=== PATIENT | female | born 1940 | race Asian ===

== ENCOUNTER → 2018-01-09 09:15 | Outpatient (CLI) | payer OTHER, SELFPAY | PROVIDERS: PCP Family Medicine; Visit Provider Orthopaedic Surgery | DX: M65.342 Trigger finger, left ring finger (principal); Z96.642 Presence of left artificial hip joint; Z47.1 Aftercare following joint replacement surgery | CPT/HCPCS: 99213 ==

== ENCOUNTER → 2018-01-29 09:00 | Outpatient (CLI) | payer OTHER, SELFPAY | PROVIDERS: PCP Family Medicine; Visit Provider Orthopaedic Surgery | DX: Z47.89 Encounter for other orthopedic aftercare (principal); M65.342 Trigger finger, left ring finger; I10 Essential (primary) hypertension; E11.9 Type 2 diabetes mellitus without complications; Z79.4 Long term (current) use of insulin ==

== ENCOUNTER 2018-03-11 10:59 | Outpatient (REF) | payer OTHER, SELFPAY ==
--- NOTE | 2018-03-11 10:00 | SKI_PTH ---
PATIENT: Erika Moncada LOC: [facility] U#:[id number] AGE/SX: 77/F ROOM: RE03/11/[address]: Kei Dueñas : 1940 BED: DIS: 03/11/2018 SPEC #: [id number] RECD: 03/11/18 18:00 STATUS: NOBLE REIrais #: [id number] KAVON: 03/11/18 10:[address]: Kei Dueñas DEPT: Surgical Specimen RECD BY: Alice Jaramillo Tissues: 1 - SKIN BIOPSY(SHAVE/PUNCH) Procedures: SKIN LEVEL 4 Comments: [id number]
[2018-03-11 13:26] LABS: TSH (W/Ref FT4) 2.14 uIU/mL (0.358-3.74)
== END 2018-03-11 11:19 ==
LOC: NCHCN 10:59
PROVIDERS: PCP Family Medicine; Visit Provider Family Medicine
DX: E89.0 Postprocedural hypothyroidism (principal); L82.1 Other seborrheic keratosis
CPT/HCPCS: 84443; 88305

== ENCOUNTER 2018-05-09 09:18 | Outpatient (REF) | payer OTHER, SELFPAY ==
[2018-05-09 14:06] LABS: TSH (W/Ref FT4) 0.06 uIU/mL (0.358-3.74)
[2018-05-09 14:24] LABS: FREE T4 2.02 ng/dL (0.76-1.46)
== END 2018-05-09 09:38 ==
LOC: NCHCN 09:18
PROVIDERS: PCP Family Medicine; Visit Provider Family Medicine
DX: E89.0 Postprocedural hypothyroidism (principal)
CPT/HCPCS: 84439; 84443

== ENCOUNTER 2018-07-28 09:12 | Emergency (ER) | payer OTHER, SELFPAY ==
[2018-07-28 09:24] VITALS: BP 211/90; PULSE 82; RESP 18; TEMP 36.4; O2SAT 98
[2018-07-28 09:33] VITALS: BP 188/87
--- NOTE | 2018-07-28 09:35 | DI.RAD_ITS ---
SYMPTOMS/DIAGNOSIS: INJURY, PAIN RIGHT KNEE: Four views. No priors. No acute fracture or dislocation is seen. Within the femoral tibial joint space there is chondrocalcinosis. There is joint space narrowing and periarticular spurring involving all three joint compartments. There is an enthesophyte at the superior patella. There is soft tissue swelling anterior to the tibial tuberosity. There is a small suprapatellar joint effusion. IMPRESSION: 1. No acute fracture or dislocation. 2. Suprapatellar joint effusion.
--- NOTE | 2018-07-28 10:01 | W.ED.GENAD ---
Discharge Plan Disposition Patient Disposition: HOME Discharge Details Chief Complaint: Orthopedic Clinical Impression: Contusion of knee, Hematoma of right lower extremity, Elevated blood pressure reading, Heart murmur Primary Care Provider: Kei Dueñas ED Provider: Vinod Carlton Home Meds and New Rx's Prescriptions: Continued atorvastatin 10 MG tablet 20 mg PO DAILY RF: 0 metformin 1,000 MG tablet 1,000 mg PO BID RF: 0 losartan 25 MG tablet 100 mg PO DAILY RF: 0 aspirin [Aspirin Low-Strength] 81 MG tablet,chewable 81 mg PO DAILY Qty: 1 RF: 0 vitamin B complex [B-Complex] 1 EACH tablet 1 ea PO DAILY Qty: 1 RF: 0 niacin (inositol niacinate) 500 MG capsule 500 mg PO DAILY Qty: 1 RF: 0 amlodipine 2.5 MG tablet 5 mg PO DAILY RF: 0 Centrum Silver 1 EACH tablet 1 tab PO DAILY RF: 0 Ca-D3-mag vo-soib-bsl-estelita-bor [Calcium 600-D3 Plus] 1 EACH tablet 1 tab PO DAILY RF: 0 Levemir FlexTouch U-100 Insuln 100 UNIT/ML insulin pen 40 units SQ HS RF: 0 cholecalciferol (vitamin D3) [Vitamin D3] 2,000 UNIT capsule 2,000 unit PO DAILY RF: 0 levothyroxine 125 MCG tablet 0.75 mg PO DAILY RF: 0 Discharge Instructions Instructions: Contusion in Adults (ED), Heart Murmur (ED) Additional Instructions: Use Nacho wrap to provide compression to your injured knee. Use alternating ice and heat packs to encourage healing. A murmur was appreciated on exam today. Be sure to follow-up with your primary care physician regarding this and your elevated blood pressure today. Please contact your primary care physician to arrange follow-up. Return to the ER for any worsening or new concerning symptoms. Referrals: Kei Dueñas [Primary Care Provider] - Discharge Data Discharge Date/Time-TO BE ENTERED AT DEPARTURE: 07/28/18 11:07 Medical Decision Making 77yo f with here 1 week after slip and fall on ice with injury to anterior inferior right knee about 1 week ago, here with hematoma over tibial tuberosity, ecchymosis with likely pooling of bruising in her lower leg. No signs of infection. Considered fracture vs contusion with hematoma vs bursitis. Xray of the knee reviewed and interpreted by radiology: There is no evidence of acute fracture. There is no evidence of malalignment or dislocation. Mild suprapatellar joint effusion. Plan to treat with Nacho wrap and have her follow-up with her primary care physician. I encouraged her to return should have any worsening or new concerning symptoms. HPI General Mode of arrival: ambulatory. Date/Time Provider Initiated Documentation: 07/28/18 09:20. Limitations to Documentation: no limitations. Information obtained by: patient. HPI Narrative: 77yo female with history of hypertension, insulin-dependent diabetes, on low-dose aspirin presents 1 week after slip and fall on ice with injury to her right knee. Patient notes on 07/19/2018 she slipped and landed on her anterior right knee. Knee hurt minimally after the fall and she developed swelling anterior inferior knee. Swelling has persisted. Swelling is moderate with no modifiers. More recently, and more concerning for her, she is noticed bruising in her ankle. No numbness or weakness. No other injury Related Data Home Medications Medication Instructions Recorded Confirmed atorvastatin 20 mg PO DAILY tab-cap 05/27/13 07/28/18 losartan 100 mg PO DAILY tab-cap 05/27/13 07/28/18 metformin 1,000 mg PO BID tab-cap 05/27/13 07/28/18 aspirin [Aspirin Low-Strength] 81 mg PO DAILY #1 tab-cap 11/30/13 07/28/18 niacin (inositol niacinate) 500 mg PO DAILY #1 11/30/13 07/28/18 vitamin B complex [B-Complex] 1 ea PO DAILY #1 11/30/13 07/28/18 Ca-D3-mag jz-dvtt-abk-estelita-bor 1 tab PO DAILY 12/22/13 07/28/18 [Calcium 600-D3 Plus] Centrum Silver 1 tab PO DAILY 12/22/13 07/28/18 Levemir FlexTouch U-100 Insuln 40 units SQ HS 04/04/16 07/28/18 cholecalciferol (vitamin D3) 2,000 unit PO DAILY 04/04/16 07/28/18 [Vitamin D3] levothyroxine 0.75 mg PO DAILY 04/04/16 07/28/18 amlodipine 5 mg PO DAILY tab-cap 05/30/16 07/28/18 Allergies Allergy/AdvReac Type Severity Reaction Status Date / Time No Known Allergies Allergy Unverified 07/28/18 09:30 General Stated Complaint: Orthopedic JUSTIN: 4 Review of Systems Musculoskeletal Reports as per HPI Neurologic Reports as per HPI PFS Medical History Diabetes mellitus Essential hypertension Hyperlipidemia Hypothyroidism (acquired) Surgical History Appendectomy Colonoscopy - IV Sedation Colonoscopy - MAC Open Carpal Tunnel release Thyroid Total replacement of hip (~12/2013) Trigger Finger release Family History Sister Personal history of malignant neoplasm Social History Smoking and Tabacco status: Never Exam Const General: cooperative and no acute distress HENMT Head: normocephalic and atraumatic Mouth: moist mucous membranes Eyes Sclera: normal sclerae Resp Auscultation: clear to auscultation bilaterally, no rales, no rhonchi and no wheezes Cardio Jugular venous pressure: no JVD Rate: regular rate and not tachycardic Rhythm: regular rhythm Heart Sounds: murmur systolic II/ Skin General skin exam: ecchymosis (Anterior right lower leg and ankle) Neuro General: alert, awake, oriented x3 and tone normal Extrem General: no edema Right lower extremity: knee Details: tenderness Location: of the tibial tuberosity, swelling Location: of the proximal tibia Details: along the midline (hematoma), normal ROM and ecchymosis (anterior lower knee); no crepitus, lower leg (yellow discoloration anteriorly) and ankle Details: ecchymosis; no swelling Course Vital Signs Temperature 36.4 C L 07/28/18 09:24 Pulse 82 07/28/18 09:24 Respiratory Rate 18 07/28/18 09:24 Blood Pressure 211/90 H 07/28/18 09:24 Pulse Oximetry 98 07/28/18 09:24 Temperature 36.4 C L 07/28/18 09:24 Pulse 82 07/28/18 09:24 Respiratory Rate 18 07/28/18 09:24 Respiratory Effort 07/28/18 09:28 Blood Pressure 188/87 H 07/28/18 09:33 Pulse Oximetry 98 07/28/18 09:24 Pain Level 3 02/17/19 09:24
--- NOTE | 2018-07-28 10:09 | ED.GENADUL_ITS ---
Discharge Plan Disposition Patient Disposition: HOME Discharge Details Chief Complaint: Orthopedic Clinical Impression: Contusion of knee, Hematoma of right lower extremity, Elevated blood pressure reading, Heart murmur Primary Care Provider: Kei Dueñas ED Provider: Vinod Carlton Home Meds and New Rx's Prescriptions: Continued atorvastatin 10 MG tablet 20 mg PO DAILY RF: 0 metformin 1,000 MG tablet 1,000 mg PO BID RF: 0 losartan 25 MG tablet 100 mg PO DAILY RF: 0 aspirin [Aspirin Low-Strength] 81 MG tablet,chewable 81 mg PO DAILY Qty: 1 RF: 0 vitamin B complex [B-Complex] 1 EACH tablet 1 ea PO DAILY Qty: 1 RF: 0 niacin (inositol niacinate) 500 MG capsule 500 mg PO DAILY Qty: 1 RF: 0 amlodipine 2.5 MG tablet 5 mg PO DAILY RF: 0 Centrum Silver 1 EACH tablet 1 tab PO DAILY RF: 0 Ca-D3-mag pp-tkma-ugy-estelita-bor [Calcium 600-D3 Plus] 1 EACH tablet 1 tab PO DAILY RF: 0 Levemir FlexTouch U-100 Insuln 100 UNIT/ML insulin pen 40 units SQ HS RF: 0 cholecalciferol (vitamin D3) [Vitamin D3] 2,000 UNIT capsule 2,000 unit PO DAILY RF: 0 levothyroxine 125 MCG tablet 0.75 mg PO DAILY RF: 0 Discharge Instructions Instructions: Contusion in Adults (ED), Heart Murmur (ED) Additional Instructions: Use Nacho wrap to provide compression to your injured knee. Use alternating ice and heat packs to encourage healing. A murmur was appreciated on exam today. Be sure to follow-up with your primary care physician regarding this and your elevated blood pressure today. Please contact your primary care physician to arrange follow-up. Return to the ER for any worsening or new concerning symptoms. Referrals: Kei Dueñas [Primary Care Provider] - Discharge Data Discharge Date/Time-TO BE ENTERED AT DEPARTURE: 07/28/18 11:07 Medical Decision Making 77yo f with here 1 week after slip and fall on ice with injury to anterior inferior right knee about 1 week ago, here with hematoma over tibial tuberosity, ecchymosis with likely pooling of bruising in her lower leg. No signs of infection. Considered fracture vs contusion with hematoma vs bursitis. Xray of the knee reviewed and interpreted by radiology: There is no evidence of acute fracture. There is no evidence of malalignment or dislocation. Mild suprapatellar joint effusion. Plan to treat with Nacho wrap and have her follow-up with her primary care physician. I encouraged her to return should have any worsening or new concerning symptoms. HPI General Mode of arrival: ambulatory . Date/Time Provider Initiated Documentation: 07/28/18 09:20 . Limitations to Documentation: no limitations . Information obtained by: patient . HPI Narrative: 77yo female with history of hypertension, insulin-dependent diabetes, on low-dose aspirin presents 1 week after slip and fall on ice with injury to her right knee. Patient notes on 07/19/2018 she slipped and landed on her anterior right knee. Knee hurt minimally after the fall and she developed swelling anterior inferior knee. Swelling has persisted. Swelling is moderate with no modifiers. More recently, and more concerning for her, she is noticed bruising in her ankle. No numbness or weakness. No other injury Related Data Home Medications Medication Instructions Recorded Confirmed atorvastatin 20 mg PO DAILY tab-cap 05/27/13 07/28/18 losartan 100 mg PO DAILY tab-cap 05/27/13 07/28/18 metformin 1,000 mg PO BID tab-cap 05/27/13 07/28/18 aspirin [Aspirin Low-Strength] 81 mg PO DAILY #1 tab-cap 11/30/13 07/28/18 niacin (inositol niacinate) 500 mg PO DAILY #1 11/30/13 07/28/18 vitamin B complex [B-Complex] 1 ea PO DAILY #1 11/30/13 07/28/18 Ca-D3-mag ys-mccg-hhd-estelita-bor 1 tab PO DAILY 12/22/13 07/28/18 [Calcium 600-D3 Plus] Centrum Silver 1 tab PO DAILY 12/22/13 07/28/18 Levemir FlexTouch U-100 Insuln 40 units SQ HS 04/04/16 07/28/18 cholecalciferol (vitamin D3) 2,000 unit PO DAILY 04/04/16 07/28/18 [Vitamin D3] levothyroxine 0.75 mg PO DAILY 04/04/16 07/28/18 amlodipine 5 mg PO DAILY tab-cap 05/30/16 07/28/18 Allergies Allergy/AdvReac Type Severity Reaction Status Date / Time No Known Allergies Allergy Unverified 07/28/18 09:30 General Stated Complaint: Orthopedic JUSTIN: 4 Review of Systems Musculoskeletal Reports as per HPI Neurologic Reports as per HPI PFS Medical History Diabetes mellitus Essential hypertension Hyperlipidemia Hypothyroidism (acquired) Surgical History Appendectomy Colonoscopy - IV Sedation Colonoscopy - MAC Open Carpal Tunnel release Thyroid Total replacement of hip (~12/2013) Trigger Finger release Family History Sister Personal history of malignant neoplasm Social History Smoking and Tabacco status: Never Exam Const General: cooperative and no acute distress HENMT Head: normocephalic and atraumatic Mouth: moist mucous membranes Eyes Sclera: normal sclerae Resp Auscultation: clear to auscultation bilaterally, no rales, no rhonchi and no wheezes Cardio Jugular venous pressure: no JVD Rate: regular rate and not tachycardic Rhythm: regular rhythm Heart Sounds: murmur systolic II/ Skin General skin exam: ecchymosis (Anterior right lower leg and ankle) Neuro General: alert, awake, oriented x3 and tone normal Extrem General: no edema Right lower extremity: knee Details: tenderness Location: of the tibial tuberosity, swelling Location: of the proximal tibia Details: along the midline (hematoma), normal ROM and ecchymosis (anterior lower knee); no crepitus, lower leg (yellow discoloration anteriorly) and ankle Details: ecchymosis; no swelling Course Vital Signs Temperature 36.4 C L 07/28/18 09:24 Pulse 82 07/28/18 09:24 Respiratory Rate 18 07/28/18 09:24 Blood Pressure 211/90 H 07/28/18 09:24 Pulse Oximetry 98 07/28/18 09:24 Temperature 36.4 C L 07/28/18 09:24 Pulse 82 07/28/18 09:24 Respiratory Rate 18 07/28/18 09:24 Respiratory Effort 07/28/18 09:28 Blood Pressure 188/87 H 07/28/18 09:33 Pulse Oximetry 98 07/28/18 09:24 Pain Level 3 02/17/19 09:24
--- NOTE | 2018-07-28 10:29 | DI.VRAD_ITS ---
EXAM: XR Right Knee, 4 or more Views EXAM DATE/TIME: 07/28/2018 9:36 AM CLINICAL HISTORY: 77 years old, female; Signs and symptoms; Other: Injury, pain; Additional info: Fall onto knee cap on ice this morning. Pain and swelling lateral side of knee cap TECHNIQUE: XR Right knee 4 or more views. COMPARISON: No relevant prior studies available. FINDINGS: Bones/joints: Chondrocalcinosis in the medial and lateral compartments. Tricompartmental joint space narrowing and osteophyte formation consistent with degenerative changes. There is no evidence of acute fracture. There is no evidence of malalignment or dislocation.. Mild suprapatellar joint effusion Soft tissues: Normal. IMPRESSION: There is no evidence of acute fracture. There is no evidence of malalignment or dislocation. Mild suprapatellar joint effusion Dictated and Authenticated by: Dg Hudson MD. Ordering:TRU Brock MD
[2018-07-28 11:04] VITALS: BP 166/82; PULSE 98; RESP 18; O2SAT 95
== END 2018-07-28 11:07 | disposition home or self-care (01) ==
PROVIDERS: Emergency Provider Student in an Organized Health Care Education/Training Program; PCP Family Medicine
DX: S80.01XA Contusion of right knee, initial encounter (principal); S80.11XA Contusion of right lower leg, initial encounter; M25.461 Effusion, right knee; W00.0XXA Fall on same level due to ice and snow, initial encounter; R01.1 Cardiac murmur, unspecified; E11.9 Type 2 diabetes mellitus without complications; Z79.4 Long term (current) use of insulin; I10 Essential (primary) hypertension
CPT/HCPCS: 99283; 73564

== ENCOUNTER 2018-08-14 08:17 | Outpatient (REF) | payer OTHER, SELFPAY ==
[2018-08-14 12:24] LABS: HCT 42.8 % (36.0-46.0); Mean Corp. HGB Concentration 32.7 g/dL (32.0-36.0); Mean Corpuscular Hemoglobin 29.6 pg (27.0-33.0); Mean Corpuscular Volume 90.5 fL (80-95); Mean Platelet Volume 9.9 fL (8.0-11.0); Platelet Count 472 x1000/uL (130-400); RBC 4.73 m/cumm (4.00-5.20); White Blood Cell Count 5.11 k/cumm (4.4-10.8)
[2018-08-14 13:17] LABS: Anion Gap 8.8 mmol/L (3-11); BUN 24 mg/dL (7-18); CO2 31.2 mmol/L (21.0-32.0); CREATININE 1.02 mg/dL (0.55-1.02); Calcium 9.8 mg/dL (8.5-10.1); Chloride 102 mmol/L (98-107); Estimated GFR 52.83 (mL/min/1.73m2); Glucose 121 mg/dL (70-100); Magnesium 1.5 mg/dL (1.8-2.4); Potassium 4.4 mmol/L (3.5-5.1); Sodium 142 mmol/L (136-145); TSH (W/Ref FT4) 0.03 uIU/mL (0.358-3.74)
[2018-08-14 13:34] LABS: FREE T4 2.23 ng/dL (0.76-1.46)
== END 2018-08-14 08:37 ==
LOC: NCHCN 08:17
PROVIDERS: PCP Family Medicine; Visit Provider Family Medicine
DX: E89.0 Postprocedural hypothyroidism (principal); I10 Essential (primary) hypertension; N18.3 Chronic kidney disease, stage 3 (moderate); E83.42 Hypomagnesemia; R01.1 Cardiac murmur, unspecified
CPT/HCPCS: 80048; 85027; 83735; 84439; 84443

== ENCOUNTER → 2018-10-01 09:16 | Outpatient (BNVA) | payer OTHER, SELFPAY | PROVIDERS: PCP Family Medicine; Referring Provider Family Medicine; Visit Provider Orthopaedic Surgery | DX: M65.321 Trigger finger, right index finger (principal) | CPT/HCPCS: 99211; 99212 ==

== ENCOUNTER 2018-10-07 07:47 | Day surgery (SDC) | payer OTHER, SELFPAY ==
[2018-10-07 08:24] VITALS: BP 136/71; PULSE 82; RESP 16; TEMP 36.2; O2SAT 97
[2018-10-07] MEDS: Lidocaine 2% Pres-Free 5 ML VIAL (10:44)
--- NOTE | 2018-10-07 11:01 | PDOC.DSDIS_ITS ---
Discharge Plan Disposition Patient Disposition: HOME Condition: Good Discharge Details Reason For Visit: Release trigger R index finger Attending Provider: Waldemar Rodriguez Primary Care Provider: Kei Dueñas [place] Meds and New Rx's Prescriptions: New hydrocodone-acetaminophen 5-325 mg tablet 1 tab PO Q6H PRN (Reason: pain) Qty: 7 RF: 0 Continued magnesium 250 mg tablet 500 mg PO DAILY RF: 0 atorvastatin 10 MG tablet 20 mg PO DAILY RF: 0 metformin 1,000 MG tablet 1,000 mg PO BID RF: 0 losartan 25 MG tablet 100 mg PO DAILY RF: 0 aspirin [Aspirin Low-Strength] 81 MG tablet,chewable 81 mg PO DAILY Qty: 1 RF: 0 vitamin B complex [B-Complex] 1 EACH tablet 1 ea PO DAILY Qty: 1 RF: 0 niacin (inositol niacinate) 500 MG capsule 500 mg PO DAILY Qty: 1 RF: 0 amlodipine 2.5 MG tablet 5 mg PO DAILY RF: 0 Centrum Silver 1 EACH tablet 1 tab PO DAILY RF: 0 Ca-D3-mag mj-uklt-hnv-estelita-bor [Calcium 600-D3 Plus] 1 EACH tablet 1 tab PO DAILY RF: 0 Levemir FlexTouch U-100 Insuln 100 UNIT/ML insulin pen 35 units SQ HS RF: 0 cholecalciferol (vitamin D3) [Vitamin D3] 2,000 UNIT capsule 2,000 unit PO DAILY RF: 0 levothyroxine 125 MCG tablet 0.75 mg PO DAILY RF: 0 Discharge Instructions Additional Instructions: Bend and straighten R index finger 10 times/hour when awake to decrease swelling and pain. Keep dressings dry and in place for 48 hours. May remove dressings, shower or bathe, and get incision wet after 48 hours. Leave incision uncovered when it is dry and sealed. Use R hand as much as your discomfort allows. Take hydrocodone only for pain not relieved by tylenol or ibuprofen. Follow up with in 10-14 days. Referrals: Waldemar Rodriguez MD [ [facility]YS[facility]IAN] - (f/u in 10-14 days.) Activity:: Activity as Tolerated Remove Dressings/Wound Care:: 48 hours Shower/Bathe:: 48 hours Diet:: As Tolerated Discharge Orders Discharge Orders: Discharge Order (Routine); Ordered 10/07/18 Ordered By: Waldemar N Jennifer DS: Diagnosis Discharge Diagnosis (1) Trigger finger, right index finger: Status: Acute
--- NOTE | 2018-10-07 13:59 | ROE_ITS ---
DATE OF PROCEDURE: October 07, 2018 PREOPERATIVE DIAGNOSIS: Trigger right index finger. POSTOPERATIVE DIAGNOSIS: Same. PROCEDURE: Tendon sheath incision for trigger right index finger. ANESTHESIA: Local infiltration 2% Xylocaine solution and 0.5% Marcaine with an epinephrine solution. SURGEON: Waldemar Rodriguez M.D. INDICATIONS: This is a 77-year-old white female well-known to me due to four previous trigger finger releases. She has developed painful locking and catching of her right index finger over six months ago. This has failed to improve over time. It significantly interferes with use of her right hand. Trigger finger release was recommended to alleviate her pain and improve the function of her right h and. The risks and complications of the procedure were explained to the patient in detail preoperati veldanita. PROCEDURE: The patient was taken to the Operating Room on 10/07/18. She was placed supine on the ope rating table. The right hand was prepped and draped free in the usual sterile fashion. I infiltrate d with 2% Xylocaine solution over the flexor sheath of the right index finger. I then make an approx imately 2.5 cm transverse incision over the proximal caroline of the flexor sheath of the right index f anna. The incision was carried down through the skin and subcu. Blunt-tipped Littler scissors were then used to mobilize the soft tissue away from the flexor sheath. Under direct vision I incised th e proximal caroline of the flexor sheath of the right index finger. Using Littler scissors I complete the proximal caroline release proximally and distally. At this point the patient is asked to actively flex and extend her right index finger. She is now able to flex and extend her right index finger fu lly with no locking or catching. The wound is irrigated with saline solution. The wound margins are infiltrated with 0.5% Marcaine with an epinephrine solution. The skin edges are approximated with t wo interrupted #4-0 Nylon sutures. The wound was dressed with Xeroform gauze, sterile gauze 4x4's, a nd wrapped with a 2-inch Cling bandage. The patient was discharged to the Day Surgery Unit in good c ondition. The patient was discharged home from the Day Surgery Unit with instructions to flex and extend her ri ght index finger ten times an hour while awake to prevent swelling and pain. She is to keep the dres sings clean, dry and in place for 48 hours. After 48 hours she can remove her dressings, shower or b athe and get her incision wet. She can leave the wound uncovered when it is dry and sealed. She can use her right hand as much as discomfort allows. She will take Tylenol or ibuprofen for mild pain. She was given a prescription for breakthrough pain of Hydrocodone with APAP 5/325 one tablet every s ix hours, as needed. She will follow-up with me in 10-14 days.
== END 2018-10-07 11:22 | disposition home or self-care (01) ==
PROVIDERS: PCP Family Medicine; Visit Provider Orthopaedic Surgery
PROC: (CPT 26055; principal; 2018-10-07 09:15)
DX: M65.321 Trigger finger, right index finger (principal)
CPT/HCPCS: 26055

== ENCOUNTER → 2018-10-17 10:21 | Outpatient (BNVA) | payer OTHER, SELFPAY | PROVIDERS: PCP Family Medicine; Referring Provider Family Medicine; Visit Provider Orthopaedic Surgery | DX: E11.9 Type 2 diabetes mellitus without complications (principal); I10 Essential (primary) hypertension; M65.321 Trigger finger, right index finger; Z47.89 Encounter for other orthopedic aftercare ==

== ENCOUNTER 2018-10-23 16:45 | Outpatient (REF) | payer OTHER, SELFPAY ==
--- NOTE | 2018-10-23 15:40 | PAPFT_PTH ---
PATIENT: Erika Moncada LOC: [facility] U#:[id number] AGE/SX: 77/F ROOM: RE10/23/[address]: Kayleigh Quigley : 1940 BED: DIS: 10/23/2018 SPEC #: [id number] RECD: 10/23/18 17:14 STATUS: NOBLE REQ #: [id number] KAVON: 10/23/18 15:[address]: Kayleigh Quigley DEPT: [facility] Cyt[facility] RECD BY: Alice Jaramillo ENTERED: 10/23/18 17:14 SP TYPE: PAPFT OTHR DR: Kei Dueñas Tissues: 1 - CX/ENDOCX FOR PAP SMEARS Procedures: PAP THIN PREP/UVM Screening HPV DNA PROBE Comments: [id number]
== END 2018-10-23 17:05 ==
LOC: LBN 16:45
PROVIDERS: PCP Family Medicine; Visit Provider Obstetrics & Gynecology Gynecology
DX: Z12.4 Encounter for screening for malignant neoplasm of cervix (principal); Z51.81 Encounter for therapeutic drug level monitoring
CPT/HCPCS: 88142; 87624

== ENCOUNTER 2018-11-11 00:29 | Outpatient (CLI) | payer OTHER, SELFPAY ==
--- NOTE | 2018-11-11 10:30 | DI.MAMMO_ITS ---
SYMPTOMS/DIAGNOSIS: SCREENING, Z12.31 MAMMOGRAM: Mammograms were interpreted according to the usual protocol including computer analysis with CAD system, tomosynthesis and C view imaging. The breasts are of moderate density with fairly symmetrical distribution of fibroglandular tissue. No dominant mass or clumped microcalcification is identified in either breast. Current examination is compared with previous examinations including August 2017 and there has been no gross interval change in appearance in comparison with the previous studies. CONCLUSION: No specific evidence of malignancy at this time. Routine screening examinations are suggested at yearly intervals in this age group according to the ACS/ACR guidelines. Category 1, breast density category B. MQSA ASSESSMENT OF FINDINGS: Negative. Category 1. Patient will receive a letter notifying them of these results. BI-RADS category B. There are scattered areas of fibroglandular density.
== END 2018-11-11 00:49 ==
PROVIDERS: PCP Family Medicine; Visit Provider Obstetrics & Gynecology Gynecology
DX: Z12.31 Encounter for screening mammogram for malignant neoplasm of breast (principal)
CPT/HCPCS: 77063; 77067

== ENCOUNTER 2018-11-26 10:32 | Outpatient (REF) | payer OTHER, SELFPAY ==
[2018-11-26 13:23] LABS: Magnesium 1.7 mg/dL (1.8-2.4); TSH (W/Ref FT4) 0.03 uIU/mL (0.358-3.74)
[2018-11-26 13:48] LABS: FREE T4 1.48 ng/dL (0.76-1.46)
== END 2018-11-26 10:52 ==
LOC: NCHCN 10:32
PROVIDERS: PCP Family Medicine; Visit Provider Family Medicine
DX: E83.42 Hypomagnesemia (principal); E89.0 Postprocedural hypothyroidism
CPT/HCPCS: 83735; 84439; 84443

== ENCOUNTER 2019-07-28 10:59 | Outpatient (REF) | payer OTHER, SELFPAY ==
[2019-07-28 12:28] LABS: Anion Gap 9.3 mmol/L (3-11); BUN 18 mg/dL (7-18); CO2 30.7 mmol/L (21.0-32.0); CREATININE 1.09 mg/dL (0.55-1.02); Calcium 9.7 mg/dL (8.5-10.1); Chloride 104 mmol/L (98-107); Glucose 108 mg/dL (74-106); Potassium 4.4 mmol/L (3.5-5.1); Sodium 144 mmol/L (136-145); TSH (W/Ref FT4) 18.21 uIU/mL (0.36-3.74)
[2019-07-28 12:54] LABS: FREE T4 1.24 ng/dL (0.76-1.46)
== END 2019-07-28 11:19 ==
LOC: NCHCN 10:59
PROVIDERS: PCP Family Medicine; Visit Provider Family Medicine
DX: I10 Essential (primary) hypertension (principal); E89.0 Postprocedural hypothyroidism
CPT/HCPCS: 80048; 84439; 84443

== ENCOUNTER 2019-12-02 21:43 | Outpatient (REF) | payer OTHER, SELFPAY ==
[2019-12-02 19:40] LABS: TSH (W/Ref FT4) 3.47 uIU/mL (0.36-3.74)
== END 2019-12-02 22:03 ==
LOC: NCHCN 21:43
PROVIDERS: PCP Family Medicine; Visit Provider Family Medicine
DX: E89.0 Postprocedural hypothyroidism (principal)
CPT/HCPCS: 84443

== ENCOUNTER 2020-09-06 07:53 | Emergency (ER) | payer OTHER, SELFPAY ==
[2020-09-06] VITALS (21 sets, daily range): BP systolic 104–166; BP diastolic 48–70; PULSE 82–108; RESP 11–20; TEMP 36.7; O2SAT 92–96
--- NOTE | 2020-09-06 08:30 | RT.EKG_ITS ---
APPROVED REPORT Exam: Resting ECG Patient Location: E HR:94 bpm ECG Measurements Heart Rate 94 AXIS RI 196 P 50 QRSd 84 QRS 9 QT 360 T 16 QTc 451 Conclusion Sinus rhythm...normal P axis, V-rate 60- 99 Inferior infarct, old...Q >35mS, II III aVF no STEMI, non-diagnostic EKG I have reviewed and interpreted ECG and agree with software generated interpretation.
--- NOTE | 2020-09-06 08:30 | DI.RAD_ITS ---
EXAM: XR CHEST 2V PA LATERAL CLINICAL HISTORY: left thorax pain. TECHNIQUE: 2D digital imaging was performed. COMPARISON: CR CHEST 2 VIEWS PA,LAT from 01/18/2017 FINDINGS: Heart size is normal. The mediastinum is not widened. Right lung is clear. There is platelike atelectasis in the lingular segment of the left lung, not pr eviously present. No pleural effusions. No pneumothorax. IMPRESSION: There is subsegmental platelike atelectasis in the left lung base lingular segment which was not evid ent on the 2017 study. No other pulmonary findings. No pleural effusions. Sigmoid DATA REPOSITORY: RADIATION DOSE DELIVERED:
--- NOTE | 2020-09-06 08:34 | W.ED.GENAD ---
Discharge Plan Disposition Patient Disposition: HOME Condition: Good Discharge Details Clinical Impression: Back pain, Pneumonia Primary Care Provider: Kei Dueñas ED Provider: Alice Norris Home Meds and New Rx's Prescriptions: New lidocaine [Lidoderm] 5 % adhesive patch,medicated 1 patch topical DAILY Qty: 15 RF: 0 doxycycline hyclate 100 mg tablet 100 mg PO BID Qty: 20 RF: 0 No Action magnesium 250 mg tablet 500 mg PO DAILY RF: 0 metformin 1,000 MG tablet 1,000 mg PO BID RF: 0 Levemir FlexTouch U-100 Insuln 100 UNIT/ML insulin pen 20 units SQ HS RF: 0 atorvastatin 20 mg tablet 20 mg PO DAILY RF: 0 levothyroxine 88 mcg tablet 88 mcg PO DAILY RF: 0 amlodipine 10 mg tablet 10 mg PO DAILY RF: 0 losartan 100 mg tablet 100 mg PO DAILY RF: 0 calcium carbonate [Calcium 600] 600 mg calcium (1,500 mg) Tablet 1,200 mg PO DAILY RF: 0 cyanocobalamin (vitamin B-12) [Vitamin B-12] 500 mcg Tablet 500 mcg PO DAILY RF: 0 coenzyme Q10 [CoQ-10] 100 mg Capsule 200 mg PO DAILY RF: 0 zinc 50 mg Capsule 50 mg PO DAILY RF: 0 cholecalciferol (vitamin D3) [Vitamin D3] 125 mcg (5,000 unit) Tablet 125 mcg PO DAILY RF: 0 niacin 500 mg Capsule 500 mg PO DAILY RF: 0 Discharge Instructions Instructions: Back Pain (ED), Pneumonia (ED) Additional Instructions: Yogurt daily while on antibiotic Take Tylenol, 650 mg to 1 g every 6 hours as needed for pain Light massage Lidoderm patch, 12 hours on, 12 hours off You may apply warm compresses Please follow-up with your primary care physician this week for reevaluation Repeat x-ray in 1 month at the discretion of your doctor Return earlier should you have worsening shortness of breath, fever, chills, or with any new or progressing symptoms Discharge Data Discharge Date/Time-TO BE ENTERED AT DEPARTURE: 09/06/20 11:25 Medical Decision Making Patient alert and oriented, pleasant in demeanor, reproducible neck pain however given comorbidities, recent flight and age, will order troponin, EKG, chest x-ray, D-dimer and Tylenol I have low suspicion for more ominous pathology however pending diagnostic results will determine disposition Should take 2 aspirin prior to arrival, 162 mg Strength and sensation perfect preserved distally, low suspicion for cervical radiculopathy Distal pulses intact, no abdominal bruit or pulsatile mass, no prior history of aneurysms, suspicion based on clinical exam findings Pneumonia on CT per Dr. Rangel, radiologist, no other acute findings Specifically no evidence of abdominal aortic dissection Patient feeling symptomatically improved after Tylenol, ambulatory with steady gait We will treat with doxycycline, repeat x-ray in 1 month Tylenol for pain Return precautions discussed the patient stressed understanding No evidence of diabetic ketoacidosis Blood sugar noted to be elevated at 317, patient made aware and she will check her blood sugar when she returns home Given low threshold to return her to any complaints Denies weakness, dizziness, nausea, vomiting, chest pain, shortness of breath Recheck in 24 to 48 hours recommended Oxygenation 96% on room air, pulse 82, blood pressure 116/50, ambulatory with steady gait Differential Diagnosis Differential Diagnosis: Aortic dissection, musculoskeletal neck pain, myocardial ischemia, radiculo Medical Records Medical records reviewed: Yes I reviewed the patient's medical records. HPI This 79-year-old female with history of insulin-dependent diabetes, hypertension, hyperlipidemia presents today with report of left upper back and neck pain. The pain started approximately 4 days prior to arrival. She denies known injury to the affected area or history of similar pain in the past. She states she had pain moderately with position change and movement of her neck. She denies any strength or sensation changes or radiation into her anterior chest region. She denies known history of coronary artery disease. She denies any associated abdominal pain. She denies associated headache. She denies any vision change. She has nausea or vomiting. She did have a recent flight at the end of July to [facility] related and asymptomatic since that time. Denies any calf pain or swelling or prior history of coaguopqathy. Denies any new medications or shortness of breath. No exogenous hormone therapy. Blood sugar this morning 117 per patient. General Date/Time Provider Initiated Documentation: 09/06/20 07:54. Related Data Home Medications Medication Instructions Recorded Confirmed metformin 1,000 mg PO BID tab-cap 05/27/13 09/06/20 Levemir FlexTouch U-100 Insuln 20 units SQ HS 04/04/16 09/06/20 magnesium 250 mg tablet 500 mg PO DAILY tab 10/01/18 09/06/20 amlodipine 10 mg PO DAILY 09/06/20 09/06/20 atorvastatin 20 mg PO DAILY 09/06/20 09/06/20 calcium carbonate [Calcium 600] 1,200 mg PO DAILY 09/06/20 09/06/20 cholecalciferol (vitamin D3) 125 mcg PO DAILY 09/06/20 09/06/20 [Vitamin D3] coenzyme Q10 [CoQ-10] 200 mg PO DAILY 09/06/20 09/06/20 cyanocobalamin (vitamin B-12) 500 mcg PO DAILY 09/06/20 09/06/20 [Vitamin B-12] doxycycline hyclate 100 mg PO BID #20 tab 09/06/20 levothyroxine 88 mcg PO DAILY 09/06/20 09/06/20 lidocaine [Lidoderm] 1 patch TOPICAL DAILY #15 ea 09/06/20 losartan 100 mg PO DAILY 09/06/20 09/06/20 niacin 500 mg PO DAILY 09/06/20 09/06/20 zinc 50 mg PO DAILY 09/06/20 09/06/20 Previous Rx's Medication Instructions Recorded doxycycline hyclate 100 mg PO BID #20 tab 09/06/20 lidocaine [Lidoderm] 1 patch TOPICAL DAILY #15 ea 09/06/20 Allergies Allergy/AdvReac Type Severity Reaction Status Date / Time No Known Allergies Allergy Unverified 10/23/18 15:17 General Stated Complaint: Nk/Back Pain JUSTIN: 3 Review of Systems Narrative: Review of systems obtained x7 aside from where indicated in HPI [facility] Medical History (Updated 09/06/20 @ 11:11 by GENET Perez) Diabetes mellitus takes Lantus. 2012 HgbA1c 6.8. 2015 HgbA1c 6.5. No end organ damage. Essential hypertension Hyperlipidemia Hypothyroidism (acquired) s/p thyroidectomy for ? thryoid CA. On thyroid replacement. Pt's Parathyroid Hormone 03/2016 = 9 (12-77) Surgical History (Updated 10/18/18 @ 13:50 by Evon Becker) Appendectomy 1994 Colonoscopy - IV Sedation 2011 Colonoscopy - MAC Open Carpal Tunnel release hammer [place]pal [place] Thyroid ? CA. No further Rx required. Nl Ca levels. Pt. reports thyroid was removed Total replacement of hip (~12/2013) L Total Hip Arthroplasty. Trigger Finger release trigger finger 2012 Family History Sister Personal history of malignant neoplasm ovarian CA. in 50's Social History (Updated 10/23/18 @ 19:06 by Kayleigh Quigley MD) Smoking/Tobacco Use Status: Never Smoking risk assessment performed?: Yes Alcohol Intake: current Alcohol Intake frequency: holidays/special occasions only Alcohol type: beer and wine Drug use: Never Household members: children and other Details: D. lives with son and son in law. 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 Female Reproductive History Menstrual Menopause type: natural History History 4 Para 3 Hx # Term Pregnancies 3 Multiple births Hx # Pregnancies Ectopic pregnancies AB induced Hx Number of Living Children 3 AB spontaneous Exam Const General: cooperative and no acute distress Eyes Pupils: PERRL Neck Other: Palpable tenderness along the left lateral paraspinal muscle region, no crepitus, decreased range of motion left lateral No meningismus Chest Chest: normal inspection of the chest Resp Effort & Inspection: normal respiratory effort Auscultation: clear to auscultation bilaterally Cardio Rate: tachycardic Rhythm: regular rhythm GI Other: No abdominal bruit or pulsatile mass, no CVA tenderness Skin General skin exam: no rashes or lesions noted Neuro General: patient alert and patient oriented x3 Other: Strength and sensation intact distally Extrem Other: Peripheral pulses intact to all 4 extremities Course Vital Signs Vital signs: Vital Signs Temperature 36.7 C 09/06/20 07:57 Pulse 108 H 09/06/20 07:57 Respiratory Rate 18 09/06/20 07:57 Blood Pressure 166/70 H 09/06/20 07:57 Pulse Oximetry 96 09/06/20 07:57 Temperature 36.7 C 09/06/20 07:57 Temperature Source Temporal Artery Scan 09/06/20 07:57 Pulse 108 H 09/06/20 07:57 Respiratory Rate 18 09/06/20 07:57 Respiratory Effort Non-Labored 09/06/20 08:03 Blood Pressure 166/70 H 09/06/20 07:57 Blood Pressure Position Sitting 09/06/20 07:57 Pulse Oximetry 96 09/06/20 07:57 Oxygen Delivery Method Room Air 09/06/20 07:57 Oxygen Flow Rate 0 09/06/20 07:57 Pain Level 7 09/06/20 08:16
[2020-09-06] MEDS: Acetaminophen 500 MG TAB 1000 MG PO (08:38)
[2020-09-06 08:58] LABS: Abs Immature Grans 0.04 10^3/uL (0.0-0.06); Absolute Basophil Count 0.04 10^3/uL (0.0-0.2); Absolute Eosinophil Count 0.03 10^3/uL (0.0-0.7); Absolute Lymphocyte Count 1.08 10^3/uL (1.2-3.4); Absolute Monocyte Count 0.57 10^3/uL (0.1-0.8); Absolute Neutrophil Count 7.49 10^3/uL (1.2-6.7); Basophils % 0.4; Eosinophils % 0.3; HCT 35.7 % (36.0-46.0); HGB 12.1 g/dL (11.2-15.7); Immature Grans % 0.4; Lymphocytes % 11.7; MCH 30.3 pg (27.0-33.0); MCHC 33.9 % (32.0-36.0); MCV 89.3 fL (80-95); MPV 9.2 fL (8.0-11.0); Monocytes % 6.2; Nucleated RBC 0 %; Platelet Count 369 10^3/uL (130-400); RDW 12.7 % (11.7-14.6); RDW-SD 41.8 fL; WBC 9.25 10^3/uL (4.4-10.8)
[2020-09-06 09:17] LABS: Anion Gap 11.5 mmol/L (3-11); BUN 17 mg/dL (7-18); CO2 27.5 mmol/L (21.0-32.0); CREATININE 1.1 mg/dL (0.55-1.02); Calcium 8.8 mg/dL (8.5-10.1); Chloride 98 mmol/L (98-107); Estimated GFR 48.16 (mL/min/1.73m2); Glucose 316 mg/dL (74-106); Sodium 137 mmol/L (136-145)
[2020-09-06 09:18] LABS: Troponin I < 0.05 ng/mL (<0.06)
[2020-09-06 09:28] LABS: D-Dimer 1018 ng/mlFEU (<500)
--- NOTE | 2020-09-06 09:30 | DI.CT_ITS ---
EXAM: CT CHEST PE CTA CLINICAL HISTORY: elevated ddimer with thorax pain post flight. TECHNIQUE: Imaging Protocol: CT angiography of the chest was performed using pulmonary embolus lynette col. Multi planar reconstructions were performed. CONTRAST MATERIAL: Intravenous: Omnipaque 350 Contrast volume: 100 cc COMPARISON: Chest x-ray earlier today was reviewed FINDINGS: CHEST: PULMONARY ARTERIES: There are no intraluminal filling defects to suggest acute pulmonary emboli. LUNGS: There is atelectasis and some mild infiltrate in the left lung base posterior basal segment le ft lower lobe. No associated pleural effusion.. No evidence of pulmonary infarction. MEDIASTINUM: There is no hilar nor mediastinal adenopathy. Visualized thyroid unremarkable. CARDIAC: Heart size upper normal. There is no pericardial effusion.Caliber of the thoracic aorta is within normal limits. There is no evidence of shift of the interventricular septum. PARTIALLY VISUALIZED UPPERMOST ABDOMEN: Hepatic steatosis noted. No adrenal masses. OSSEOUS: No significant osseous lesions.. IMPRESSION: 1. No evidence of acute pulmonary emboli. 2. Small area of infiltrate in the left lower lobe posterior basal segment. No pleural effusions. 3. No significant intrathoracic adenopathy. Report called by myself to ER provider. RADIATION DOSE DELIVERED: LINK-TO-SR Total DLP DATA REPOSITORY: All CT scans at this facility are submitted to the National Radiology Data Registry (NRDR) Dose Index Registry (DIR) with the [employer] (ACR). RADIATION OPTIMIZATION: All CT scans at this facility use at least one of these dose optimization te chniques: automated exposure control; mA and/or kV adjustment per patient size (includes targeted exa ms where dose is matched to clinical indication); or iterative reconstruction.
[2020-09-06] MEDS: Omnipaque 350 MG/ML 100 ML BTL IJ (10:31)
[2020-09-06] MEDS: Normal Saline - Diluent 50 ML VIAL IV (10:32)
[2020-09-06] MEDS: Normal Saline Flush 10 ML SYR IVP (10:33)
== END 2020-09-06 11:25 | disposition home or self-care (01) ==
PROVIDERS: Emergency Provider Physician Assistant; PCP Family Medicine
DX: J18.9 Pneumonia, unspecified organism (principal); M54.6 Pain in thoracic spine; M54.2 Cervicalgia
CPT/HCPCS: 71275; 80048; 80053; 83690; 93005; 99285; 71046; 83735; 84484; 85025; 85379; 93010; 99283; J3490

== ENCOUNTER 2020-09-15 21:29 | Outpatient (REF) | payer OTHER, SELFPAY ==
[2020-09-15 20:11] LABS: Magnesium 1.9 mg/dL (1.8-2.4); TSH (W/Ref FT4) 20.18 uIU/mL (0.36-3.74)
[2020-09-17 10:33] LABS: Hepatitis C Ab w Rflx HCV PCR Negative (Negative)
== END 2020-09-15 21:30 | disposition home or self-care (01) ==
LOC: NCHCN 21:29
PROVIDERS: PCP Family Medicine; Visit Provider Family Medicine
DX: E83.42 Hypomagnesemia (principal); E89.0 Postprocedural hypothyroidism; Z11.59 Encounter for screening for other viral diseases
CPT/HCPCS: 86803; 83735; 84439; 84443

== ENCOUNTER 2020-12-27 09:54 | Outpatient (REF) | payer OTHER, SELFPAY ==
[2020-12-27 16:39] LABS: TSH (W/Ref FT4) 0.35 uIU/mL (0.36-3.74)
[2020-12-27 16:56] LABS: FREE T4 1.24 ng/dL (0.76-1.46)
== END 2020-12-27 09:55 | disposition home or self-care (01) ==
LOC: NCHCN 09:54
PROVIDERS: PCP Family Medicine; Visit Provider Family Medicine
DX: E89.0 Postprocedural hypothyroidism (principal)
CPT/HCPCS: 84439; 84443

== ENCOUNTER 2021-08-09 18:48 | Outpatient (REF) | payer OTHER, SELFPAY ==
[2021-08-09 20:30] LABS: Iron 74 ug/dL (50-170); Total Iron Binding Capacity 334 ug/dL (250-450); Transferrin Sat 22 % (15-50)
[2021-08-09 20:41] LABS: HCT 42.5 % (36.0-46.0); HGB 13.6 g/dL (11.2-15.7); MCH 29.5 pg (27.0-33.0); MCV 92.2 fL (80-95); MPV 9.6 fL (8.0-11.0); Platelet Count 493 10^3/uL (130-400); RBC 4.61 10^6/uL (3.93-5.22); RDW 13.2 % (11.7-14.6); RDW-SD 44.5 fL; WBC 6.09 10^3/uL (4.4-10.8)
[2021-08-09 20:54] LABS: Anion Gap 11.4 mmol/L (3-11); BUN 21 mg/dL (7-18); CO2 26.6 mmol/L (21.0-32.0); Calcium 9.3 mg/dL (8.5-10.1); Chloride 102 mmol/L (98-107); Estimated GFR 53.62 (mL/min/1.73m2); Glucose 109 mg/dL (74-106); Potassium 4.5 mmol/L (3.5-5.1); Sodium 140 mmol/L (136-145); TSH 18.76 uIU/mL (0.36-3.74)
== END 2021-08-09 18:49 | disposition home or self-care (01) ==
LOC: NCHCN 18:48
PROVIDERS: PCP Family Medicine; Visit Provider Family Medicine
DX: D64.9 Anemia, unspecified (principal); E89.0 Postprocedural hypothyroidism; N18.30 Chronic kidney disease, stage 3 unspecified
CPT/HCPCS: 80048; 85027; 83540; 83550; 84443

== ENCOUNTER 2021-11-25 09:15 | Outpatient (REF) | payer MEDICARE, SELFPAY ==
[2021-11-25 20:02] LABS: Calculated LDL 72 mg/dL (<100); Cholesterol 170 mg/dL (<200); HDL Cholesterol 55 mg/dL (40-60); TSH (W/Ref FT4) 1.04 uIU/mL (0.36-3.74); Triglyceride 217 mg/dL (<150)
== END 2021-11-25 09:16 | disposition home or self-care (01) ==
LOC: NCHCN 09:15
PROVIDERS: PCP Family Medicine; Visit Provider Family Medicine
DX: E89.0 Postprocedural hypothyroidism (principal); E78.5 Hyperlipidemia, unspecified
CPT/HCPCS: 80061; 84443

== ENCOUNTER → 2022-01-24 07:48 | Outpatient (BNVA) | payer MEDICARE, SELFPAY | PROVIDERS: PCP Family Medicine; Referring Provider Family Medicine; Visit Provider Surgery | DX: Z86.010 Personal history of colon polyps (principal); Z12.11 Encounter for screening for malignant neoplasm of colon ==

== ENCOUNTER → 2022-01-30 14:51 | Outpatient (CLI) | payer MEDICARE, SELFPAY ==
--- NOTE | 2022-01-30 | DI.RAD_ITS ---
Exam(s) XR HAND LT COMPLETE XR WRIST LT COMPLETE EXAM: XR HAND LT COMPLETE and XR wrist LT complete CLINICAL HISTORY: PAIN IN LEFT WRIST--M25.532. TECHNIQUE: 2D digital imaging was performed of the left hand. Six views were obtained. AP, lateral and oblique views were obtained. COMPARISON: CR XR WRIST LT COMPLETE from 01/30/2022 FINDINGS: BONES: No acute fracture is present. No bony destructive lesion is seen. JOINTS: No dislocation present. At the 1st CMC joint there is mild joint space narrowing and periarti cular spurring present. There is mild narrowing of the interphalangeal joint spaces of the fingers. SOFT TISSUE: Soft tissue calcifications are seen associated with the PIP, MCP and TFCC. IMPRESSION: 1. Arthritis of the hand and wrist. 2. No acute fracture or dislocation. DATA REPOSITORY: RADIATION DOSE DELIVERED:
== END ==
PROVIDERS: PCP Family Medicine; Visit Provider Nurse Practitioner Family
DX: M19.032 Primary osteoarthritis, left wrist (principal); M19.042 Primary osteoarthritis, left hand
CPT/HCPCS: 73110; 73130

== ENCOUNTER 2022-02-06 06:27 | Day surgery (SDC) | payer MEDICARE, SELFPAY ==
--- NOTE | 2022-02-05 18:15 | W.ANESPRE ---
General Info Date of Service Date Performed: 02/06/22 Height: 5 ft 2 in Weight: 56.699 kg Body Mass Index (BMI): 22.8 Surgical Procedure: Operation Date: 02/06/22 08:35 Proposed Procedure Side Surgeon p Colonoscopy Christiana Villalobos MD Meds Allergies and Home Medications Allergies Allergy/AdvReac Type Severity Reaction Status Date / Time No Known Allergies Allergy Unverified 02/06/22 07:03 Home Medication Medication Instructions Recorded amlodipine 10 mg tablet 10 mg PO DAILY 09/06/20 atorvastatin 20 mg tablet 20 mg PO DAILY 09/06/20 calcium carbonate 600 mg calcium 1,200 mg PO DAILY 09/06/20 (1,500 mg) tablet (Calcium) cholecalciferol (vitamin D3) 125 125 mcg PO DAILY 09/06/20 mcg (5,000 unit) tablet (Vitamin D3) coenzyme Q10 100 mg capsule 200 mg PO DAILY 09/06/20 (CoQ-10) losartan 100 mg tablet 100 mg PO DAILY 09/06/20 zinc 50 mg capsule 50 mg PO DAILY 09/06/20 sitagliptin 100 mg tablet (Januvia) 100 mg PO DAILY 05/19/21 ascorbic acid (vitamin C) 1,000 mg 1 g PO DAILY 11/17/21 tablet insulin detemir U-100 100 unit/mL 20 units SQ HS 11/17/21 (3 mL) subcutaneous pen (Levemir FlexTouch U-100 Insulin) levothyroxine 88 mcg tablet 88 mcg PO DAILY 11/17/21 metformin 1,000 mg tablet 1,000 mg PO BID 11/17/21 vitamin B complex 1 tab PO DAILY 11/17/21 bisacodyl 5 mg tablet,delayed 5 mg PO ONCE #4 tabs 01/24/22 release (Dulcolax (bisacodyl)) polyethylene glycol 3350 17 17 g PO ONCE #238 grams 01/24/22 gram/dose oral powder Current Visit Medications: Current Medications Generic Name Dose Route Start Last Admin Trade Name Freq PRN Reason Stop Dose Admin Ringer's Solution 1,000 mls @ 80 mls/hr 02/06/22 06:00 IV 03/05/22 23:59 INFUSION [facility] IV Miscellaneous Supplies 1 each 02/06/22 06:00 Iv Access IV 03/05/22 23:59 DIRECTED [facility] Sodium Chloride 0 ml 02/06/22 06:00 Normal Saline Flush 10 Ml Syr IV 03/05/22 23:59 PRN PRN Sodium Chloride 0 ml 02/06/22 06:00 Normal Saline 10 Ml Vial IJ 03/05/22 23:59 DIRECTED PRN Sterile Water 0 ml 02/06/22 06:00 Water,Injection,Sterile 10 Ml Vial IJ 03/05/22 23:59 DIRECTED PRN PFSH Active Problems Active Problems: Problem Status Onset Code Vitamin D deficiency E55.9 Chronic kidney disease (CKD) stage G1/A3, glomerular filtration rate (GFR) equal to or greater than 90 mL/min/1.73 square meter and albuminuria creatinine ratio greater than 300 mg/g N18.1 Heart murmur, systolic R01.1 Screening for colon cancer Z12.11 Sleep apnea G47.30 Insulin dependent diabetes mellitus E11.9, Z79.4 Medical History Medical History Back pain Cyst of left parotid gland Dr. Gonzalez 05/27/20 The left parotid cyst seems to be significantly smaller, and was previously aspirated for thin clear liquid. Diabetes mellitus takes Lantus. 2012 HgbA1c 6.8. 2015 HgbA1c 6.5. No end organ damage. DJD (degenerative joint disease) Elevated lipids Essential hypertension Hyperlipidemia Hypertension Hypomagnesemia Hypothyroidism (acquired) s/p thyroidectomy for ? thryoid CA. On thyroid replacement. 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 Hammer toe procedure on her left foot. b. Appendectomy. c. Bilateral carpal tunnel releases, trigger releases, bilateral middle fingers. d. Colonoscopy. Open Carpal Tunnel release hammer toe [place] Thyroid ? CA. No further Rx required. Nl Ca levels. Pt. reports thyroid was removed Total replacement of hip (~12/2013) L Total Hip Arthroplasty. Trigger Finger release trigger finger 2012 Trigger finger, right index finger DOS: 10/07/18 Tobacco Smoking/Tobacco Use Status: Never Alcohol Alcohol Intake: current Alcohol intake frequency: holidays/special occasions only Alcohol type: beer and wine Substance Use Substance use: Never Substance use type: does not use Prental History History 4 Para 3 Hx # Term Pregnancies 3 Multiple births Hx # Pregnancies Ectopic pregnancies AB induced Hx Number of Living Children 3 AB spontaneous Vital Signs and Lab Results Vital Signs Most Recent Vital Signs in EMR: Temp Pulse Resp BP Pulse Ox 36.5 C 62 17 134/83 99 02/06/22 06:55 02/06/22 06:55 02/06/22 06:55 02/06/22 06:55 02/06/22 06:55 Lab Results Blood Type / Crossmatch: No Data to Display Complete Blood Count: No Data to Display Complete Metabolic Panel: No Data to Display Liver Function Panel: No Data to Display Coagulation Panel: No Data to Display Cardiac Panel: No Data to Display Arterial Blood Gas: No Data to Display Venous Blood Gas: No Data to Display Pancreas Panel: No Data to Display Thyroid Panel: No Data to Display Infectious Disease: No Data to Display Blood Cultures: No Data to Display Toxicology Panel: No Data to Display Imaging and Studies Imaging and Studies Study information below may be from another EMR and interpreted by another provider. Please see original notes in EMR for more complete details. EKG Summary: 08/2020: sinus. Qs II, III, aVF. Anesthesia Assessment and Plan Anesthesia History Personal History: No History of Anesthesia Complications Family History: No Family History of Anesthesia Complications Exercise Tolerance Exercise Tolerance: Metabolic Equivalents>4 Cardiac & Pulmonary Exam Cardiac Exam: Normal S1/S2 Heart Sounds Pulmonary Exam: Clear Bilateral Breath Sounds Implantable Cardiac Device Does patient have a Pacemaker or an ICD?: No Airway Exam Known Difficult Airway: No Mallampati Class: 3 Mouth Opening: Narrow (< 3cm) Thyromental Distance: Less than 3 cm Neck Range of Motion: Full ROM Neck Circumference: Normal Teeth Condition: Removable Dentures/Plates Upper and Removable Dentures/Plates Lower ASA Classification ASA Score: ASA 3 Emergency Case?: No NPO Status NPO Status: NPO Clears >2 hours, Solids >8 hours Anesthesia Plan Resuscitation Status: Full Code Anesthesia Technique: General Anesthesia Airway Planned: Natural Airway Monitors Used: Standard Monitors Preoperative Comments:: 81 yo female with history of polyps for colo. Sig PMHx: CKD, HTN, hypothyroid (r/t thyroidectomy for thyroid CA), DM, TRACY. Previous VL grade 1
--- NOTE | 2022-02-06 06:30 | W.COLOREPORT ---
Colonoscopy Report Date of procedure: 02/06/22 Pre-op diagnosis general: Colon Cancer Screening and hx of polyps Post-op diagnosis procedure note: other (polyps) Procedure: Colonoscopy with polypectomy Surgeon: Christiana Villalobos Anesthesia Type: General:No Airway Estimated blood loss (mL): 3 Pathology: other (transverse polyps x2, ddescending polyp and rectal polyp) Complications: None Disposition: same day Indications: Ms. Holcomb is a pleasant 81-year-old female who is here for a screening colonoscopy.? Her last colonoscopy was 10 years ago and she did have a tubulovillous adenoma.? She denies any changes in bowel habits, melena, hematochezia, unintentional weight loss or family history of colon cancer.? The prep was reviewed in detail as well as the procedure.? Risks, benefits and complications have been reviewed. Complications include but are not limited to bleeding, pain, perforation, missed small lesion/polyp, sore throat, aspiration and adverse reaction to the medications. Questions were entertained and answered to their satisfaction and they wished to proceed. No guarantees were given or implied. Proceed with colonoscopy under sedation Prep: Miralax/Dulcolax Procedure Start Time: 07:40 Procedure End Time: 08:04 Retraction Time: 12 minutes Findings: 4 polyps Procedure Description: After informed consent was obtained the patient was taken to the procedure room and placed in a left decubitous position. Monitors were applied and a time out was done. The patients name, date of , procedure, allergies to medications and metal in their body was reviewed. The patient was then sedated. Once sedated and comfortable a rectal exam was done. External exam was normal. Internal exam revealed a normal sphincter tone and no palpable masses. The scope was then introduced and retro-flexed. No internal hemorrhoids, polyps or masses were identified on retro-flexion. The scope was then advanced to the cecum without difficulty. The ileocecal vlave and appendiceal orifice were identified. The prep was adequate. The scope was then slowly retracted over 12 minutes back into the rectum. Polyps were removed with cold forceps in the Transverse colon x2, descending colon x1 and rectal polyp x1. There was no diverticulosis noted. The scope was removed and the patient was woken up and taken back to Same day surgery in stable condition. The patient tolerated the procedure well and there were no immediate complications.
--- NOTE | 2022-02-06 06:39 | PDOC.DSDIS_ITS ---
Discharge Plan Disposition Patient Disposition: HOME Condition: Good Discharge Details Reason For Visit: Colonoscopy Attending Provider: Christiana Villalobos Primary Care Provider: Kei Dueñas Home Meds and New Rx's Prescriptions: Continued vitamin B complex Tablet 1 tab PO DAILY ascorbic acid (vitamin C) 1,000 mg tablet 1 g PO DAILY Januvia 100 mg tablet 100 mg PO DAILY metformin 1,000 MG tablet 1,000 mg PO BID Levemir FlexTouch U-100 Insuln 100 UNIT/ML insulin pen 20 units SQ HS Label Comments: pt. states she takes anywhere between 9 am and 2 pm atorvastatin 20 mg tablet 20 mg PO DAILY amlodipine 10 mg tablet 10 mg PO DAILY losartan 100 mg tablet 100 mg PO DAILY calcium carbonate [Calcium 600] 600 mg calcium (1,500 mg) Tablet 1,200 mg PO DAILY coenzyme Q10 [CoQ-10] 100 mg Capsule 200 mg PO DAILY zinc 50 mg Capsule 50 mg PO DAILY cholecalciferol (vitamin D3) [Vitamin D3] 125 mcg (5,000 unit) Tablet 125 mcg PO DAILY levothyroxine 88 mcg tablet 88 mcg PO DAILY Discontinued bisacodyl [Dulcolax (bisacodyl)] 5 mg tablet,delayed release (DR/EC) 5 mg PO ONCE Qty: 4 0RF Rx Instructions: Take according to provider's instructions for colonoscopy prep. polyethylene glycol 3350 17 gram/dose powder 17 g PO ONCE Qty: 238 0RF Rx Instructions: To be taken as directed by prescriber's office for colonoscopy prep. Discharge Instructions Instructions: Colorectal Polyps (DC) Additional Instructions: Findings: 4 polyps Follow up: 3-5 years Please call if you develop: fevers >101.5 Nausea or Vomiting Abdominal pain that is not transient Rectal bleeding that is more then a tbsp A hard abdomen and inability to pass gas DAY SURGERY UNIT POST ENDOSCOPY INSTRUCTIONS Instructions for everyone who is given Anesthesia: For your safety, please do the following for the next 24 Hours: a. Do not drive or operate dangerous equipment b. Do not drink alcohol beverages or use any recreational drugs for the first 24 hours or while taking pain medications. The medications in your body may have a reaction that can be dangerous. c. Do not make any important decisions or sign any important papers 1. Generally there are no restrictions on your activity after a day or so has go ne by, but you may feel a bit fatigued for a few days. 2. After you arrive home you may have a light meal and return to a normal diet as you can tolerate it without feeling sick to your stomach. 3. After surgery, you may feel pain or discomfort. This should be only transient, but if it persists please contact your doctor. 4. If there are any questions regarding the findings of your procedure, please feel free to contact your doctor. 6. If you are unable to contact your doctor with a problem, contact the hospital at [phone]. 7. Continue all your regular medications unless directed otherwise. I understand the above instructions and have no questions. Signature of Patient or Responsible Adult Escort Date/Time Name of Responsible Adult Escort Signature of Nurse Date/Time Activity:: Activity as Tolerated Diet:: As Tolerated Discharge Orders Discharge Orders: Discharge Order (Routine); Ordered 02/06/22 Ordered By: Christiana Villalobos
[2022-02-06 06:55] VITALS: BP 134/83; PULSE 62; RESP 17; TEMP 36.5; O2SAT 99
[2022-02-06] MEDS: Lactated Ringers 1,000 ML 80 ML IV (07:18)
[2022-02-06 07:29] VITALS: BMI 22.8
--- NOTE | 2022-02-06 07:52 | BOWEL_PTH ---
PATIENT: Erika Moncada LOC: [facility] U#:[id number] AGE/SX: 81/F ROOM: RE02/06/[address]: Christiana Villalobos MD : 1940 BED: DIS: 02/06/2022 SPEC #: [id number] RECD: 02/06/22 12:34 STATUS: NOBLE RE #: [id number] KAVON: 02/06/22 07:[address]: Christiana Villalobos DEPT: Surgical Specimen RECD BY: Alice Jaramillo ENTERED: 02/06/22 12:36 SP TYPE: Bowel OTHR DR: Kei Dueñas Tissues: 1 - BIOPSY BOWEL 2 - BIOPSY BOWEL 3 - BIOPSY BOWEL Procedures: GROSS AND MICRO LEVEL 4 Comments: [id number]
[2022-02-06 08:14] VITALS: BP 109/67; PULSE 63; RESP 16; TEMP 36.6; O2SAT 95
--- NOTE | 2022-02-06 08:22 | W.ANESPOSTOP ---
Postoperative Evaluation Date, Time and Location Date Performed: 02/06/22 Time Performed: :22 Patient Location: Day Surgery Unit Vital Signs Most Recent Imported Vital Signs: Most Recent Vital Signs Temp Pulse Resp BP Pulse Ox 36.6 C 63 16 109/67 95 02/06/22 08:14 02/06/22 08:14 02/06/22 08:14 02/06/22 08:14 02/06/22 08:14 Pain Score Most Recent Pain Score: Most Recent Pain Score Pain Level 0 02/06/22 08:14 Assessment Mental Status: Awake (Alert & Oriented to Patient Baseline) Airway and Respiratory Function: Patent airway with normal (patient baseline) respiratory exam Cardiovascular Function: Hemodynamically Stable Hydration Status: Adequately Hydrated Nausea & Vomiting: No Nausea or Vomiting Pain: Pt. Denies Any Pain Peripheral Nerve Block: Patient did not receive a nerve block
[2022-02-06 08:40] VITALS: BP 120/68; PULSE 64; RESP 18; TEMP 36.7; O2SAT 97
== END 2022-02-06 09:25 | disposition home or self-care (01) ==
PROVIDERS: PCP Family Medicine; Visit Provider Surgery
PROC: 0DJD8ZZ Inspection of Lower Intestinal Tract, Via Natural or Artificial Opening Endoscopic (ICD-10-PCS; CPT 45378; principal; 2022-02-06 08:30)
DX: Z12.11 Encounter for screening for malignant neoplasm of colon (principal); K63.5 Polyp of colon; E11.9 Type 2 diabetes mellitus without complications; Z79.4 Long term (current) use of insulin; K62.1 Rectal polyp
CPT/HCPCS: 45380; 88305

== ENCOUNTER 2022-09-06 08:29 | Outpatient (REF) | payer MEDICARE, SELFPAY ==
[2022-09-06 15:15] LABS: Hemoglobin A1C 7.5 % (<5.7)
[2022-09-06 15:19] LABS: Anion Gap 10.1 mmol/L (3-11); BUN 26 mg/dL (7-18); CO2 27.9 mmol/L (21.0-32.0); CREATININE 1.4 mg/dL (0.55-1.02); Calcium 9.4 mg/dL (8.5-10.1); Chloride 102 mmol/L (98-107); Estimated GFR 38.27 (mL/min/1.73m2); Glucose 244 mg/dL (74-106); Magnesium 2.1 mg/dL (1.8-2.4); Potassium 4.5 mmol/L (3.5-5.1); Sodium 140 mmol/L (136-145); TSH (W/Ref FT4) 1.09 uIU/mL (0.36-3.74)
[2022-09-06 15:28] LABS: COMMENT (LAB VIEW ONLY) 183.05 mg/dL
[2022-09-06 15:31] LABS: Microalb ug/mg Crea 111.9 ug/mg Cr
== END 2022-09-06 08:30 | disposition home or self-care (01) ==
LOC: NCHCN 08:29
PROVIDERS: PCP Family Medicine; Visit Provider Family Medicine
DX: E11.9 Type 2 diabetes mellitus without complications (principal); E83.42 Hypomagnesemia; E89.0 Postprocedural hypothyroidism; I10 Essential (primary) hypertension; N18.30 Chronic kidney disease, stage 3 unspecified
CPT/HCPCS: 80048; 82043; 82570; 83036; 83735; 84443

== ENCOUNTER 2022-09-19 00:26 | Outpatient (CLI) | payer MEDICARE, SELFPAY ==
--- NOTE | 2022-09-19 07:00 | DI.US_ITS ---
Exam(s) US RENAL EXAM: US RENAL CLINICAL HISTORY: RENAL INSUFFICIENCY, N28.9 TECHNIQUE: Ultrasound of both kidneys performed using standard protocol. COMPARISON: No exams were available for comparison FINDINGS: RIGHT KIDNEY: Measures 10.2 cm in length. No cysts evident. Normal cortical thickness and corticomedullary differen tiation .No solid masses No shadowing intrarenal calculi. There does, however, appear to be mild dilatation of right upper co llecting system. LEFT KIDNEY: Measures 9.7 cm in length. No cysts evident. Normal cortical thickness and corticomedullary differen tiaion. No solids masses. No intrarenal calculi seen. Minimal dilatation of the upper collecting sy stem, less than is seen on the right side. URINARY BLADDER: Prevoid volume is 113 cc Postvoid volume is 21 cc No evidence of bladder mass nor diverticuli. Ureterovesical jets: Both identified and appear symmetrical IMPRESSION: 1. Slight dilatation of the upper collecting systems bilaterally, right more so than left. No intra renal calculi. No thinning of the cortical mantle on either side. 2. Ureterovesical jets were identified at the bladder level bilaterally, indicating there there is n o high-grade obstruction. Recommend appropriate follow-up. DATA REPOSITORY:
== END 2022-09-19 00:46 ==
LOC: DI 00:27
PROVIDERS: PCP Family Medicine; Visit Provider Family Medicine
DX: N28.9 Disorder of kidney and ureter, unspecified (principal); N13.2 Hydronephrosis with renal and ureteral calculous obstruction
CPT/HCPCS: 76770

== ENCOUNTER → 2022-11-16 08:33 | Outpatient (BNVA) | payer MEDICARE, SELFPAY | PROVIDERS: PCP Family Medicine; Referring Provider Family Medicine; Visit Provider Urology | DX: N13.30 Unspecified hydronephrosis (principal); E11.9 Type 2 diabetes mellitus without complications | CPT/HCPCS: 99214 ==

== ENCOUNTER 2022-11-29 01:55 | Outpatient (CLI) | payer MEDICARE, SELFPAY ==
--- NOTE | 2022-11-29 08:15 | DI.NM_ITS ---
Exam(s) NM DTPA RENOGRAM W LASIX CLINICAL HISTORY: r/o obstruction, HYDRONEPHROSIS, N13.30. COMPARISON: US US RENAL from 09/19/2022 EXAMINATION: Dose: 10.2 mCi Tc-99m DTPA Images: Immediately for 1 minute followed by dynamic for 45 minutes. Twentymg Lasix was administered after 12 min post DTPA injection.. FINDINGS: Time to peak: Right: < 5 min (normal) Left:< 5 min (normal) Split renal function: Right: 50.4 % Left: 49.6 % The time activity curve shows no evidence of obstruction. There is continued excretion following Las ix injection. IMPRESSION: 1. No evidence of obstruction.
[2022-11-29] MEDS: Furosemide 20 MG/2 ML VIAL IVP (13:34)
== END 2022-11-29 02:15 ==
LOC: DI 01:55
PROVIDERS: PCP Family Medicine; Visit Provider Urology
DX: N13.30 Unspecified hydronephrosis (principal)
CPT/HCPCS: 78708; J1941

== ENCOUNTER 2022-12-04 10:54 | Outpatient (REF) | payer MEDICARE, SELFPAY ==
[2022-12-04 15:53] LABS: Anion Gap 11.5 mmol/L (3-11); BUN 21 mg/dL (7-18); CO2 27.5 mmol/L (21.0-32.0); CREATININE 1.3 mg/dL (0.55-1.02); Chloride 104 mmol/L (98-107); Estimated GFR 41.83 (mL/min/1.73m2); Glucose 97 mg/dL (74-106); Potassium 4.3 mmol/L (3.5-5.1); Sodium 143 mmol/L (136-145)
== END 2022-12-04 10:55 | disposition home or self-care (01) ==
LOC: LBN 10:54
PROVIDERS: PCP Family Medicine; Visit Provider Family Medicine
DX: N28.9 Disorder of kidney and ureter, unspecified (principal)
CPT/HCPCS: 80048

== ENCOUNTER → 2022-12-05 10:00 | Outpatient (BNVA) | payer MEDICARE, SELFPAY | PROVIDERS: PCP Family Medicine; Referring Provider Family Medicine; Visit Provider Urology | DX: N13.30 Unspecified hydronephrosis (principal) | CPT/HCPCS: 99441 ==

== ENCOUNTER 2023-07-31 14:25 | Outpatient (REF) | payer MEDICARE, SELFPAY ==
[2023-07-31 15:48] LABS: Hemoglobin A1C 8.3 % (<5.7)
[2023-07-31 15:59] LABS: TSH (W/Ref FT4) 0.07 uIU/mL (0.36-3.74)
[2023-07-31 16:29] LABS: FREE T4 1.49 ng/dL (0.76-1.46)
== END 2023-07-31 14:26 | disposition home or self-care (01) ==
LOC: NCHCN 14:25
PROVIDERS: PCP Family Medicine; Referring Provider Family Medicine; Visit Provider Family Medicine
DX: E03.9 Hypothyroidism, unspecified (principal); E11.9 Type 2 diabetes mellitus without complications
CPT/HCPCS: 83036; 84439; 84443

== ENCOUNTER 2023-09-27 15:44 | Outpatient (REF) | payer MEDICARE, SELFPAY ==
[2023-09-27 16:27] LABS: TSH (W/Ref FT4) 0.16 uIU/mL (0.36-3.74)
[2023-09-27 23:31] LABS: Thyroglobulin Antibody 18 U/mL (<=60)
== END 2023-09-27 15:45 | disposition home or self-care (01) ==
LOC: NCHCN 15:44
PROVIDERS: PCP Family Medicine; Visit Provider Family Medicine
DX: E03.9 Hypothyroidism, unspecified (principal)
CPT/HCPCS: 84439; 84443; 86800

== ENCOUNTER 2023-10-29 11:14 | Outpatient (REF) | payer MEDICARE, SELFPAY ==
[2023-10-29 12:19] LABS: Clarity Cloudy; Mononuclear Cells 17 %; Nucleated Cells 18990 uL (0); Polynuclear Cells 83 %
[2023-11-01 17:13] LABS: Specimen Source Synovial
== END 2023-10-29 11:15 | disposition home or self-care (01) ==
LOC: LBN 11:14
PROVIDERS: PCP Family Medicine; Visit Provider Family Medicine
DX: M25.561 Pain in right knee (principal)
CPT/HCPCS: 87476; 87798; 87070; 87205; 89051; 89060

== ENCOUNTER → 2023-10-29 12:54 | Outpatient (CLI) | payer MEDICARE, SELFPAY ==
--- NOTE | 2023-10-29 15:21 | DI.RAD_ITS ---
Exam(s) XR KNEE RT 3V AP,LAT,JOS EXAM: XR KNEE RT 3V AP,LAT,JOS CLINICAL HISTORY: RT KNEE PAIN, M25.561. TECHNIQUE: 2D digital imaging was performed. COMPARISON: No exams were available for comparison FINDINGS: 3 views No evidence of acute fracture. There does appear to be a joint effusion. There is chondrocalcinosis noted. There is significant narrowing of the medial joint space and chondrocalcinosis in both media l lateral compartments. Also degenerative subarticular cysts noted in the tibial plateau. Bone dens ity normal. No osseous lesions. IMPRESSION: Degenerative changes. No fractures evident. DATA REPOSITORY: RADIATION DOSE DELIVERED:
== END ==
PROVIDERS: PCP Family Medicine; Visit Provider Family Medicine
DX: M25.561 Pain in right knee (principal)
CPT/HCPCS: 73562

== ENCOUNTER 2024-02-18 01:54 | Outpatient (CLI) | payer MEDICARE, SELFPAY ==
[2024-02-18 10:27] LABS: Uric Acid 4.1 mg/dL (2.6-6.0)
== END 2024-02-18 01:55 | disposition home or self-care (01) ==
LOC: LBO 01:55
PROVIDERS: PCP Family Medicine; Visit Provider Student in an Organized Health Care Education/Training Program
DX: M10.9 Gout, unspecified (principal)
CPT/HCPCS: 36415; 84550

== ENCOUNTER 2024-02-20 11:39 | Outpatient (REF) | payer MEDICARE, SELFPAY ==
[2024-02-20 16:22] LABS: Anion Gap 10.4 mmol/L (3-11); BUN 18 mg/dL (7-18); CO2 27.6 mmol/L (21.0-32.0); CREATININE 1.4 mg/dL (0.55-1.02); Calcium 9.5 mg/dL (8.5-10.1); Chloride 105 mmol/L (98-107); Glucose 118 mg/dL (74-106); Magnesium 2.2 mg/dL (1.8-2.4); Potassium 4.3 mmol/L (3.5-5.1); Sodium 143 mmol/L (136-145); TSH (W/Ref FT4) 0.02 uIU/mL (0.36-3.74)
== END 2024-02-20 11:40 | disposition home or self-care (01) ==
LOC: NCHCN 11:39
PROVIDERS: PCP Family Medicine; Visit Provider Student in an Organized Health Care Education/Training Program
DX: E03.9 Hypothyroidism, unspecified (principal); E11.9 Type 2 diabetes mellitus without complications; I10 Essential (primary) hypertension
CPT/HCPCS: 80048; 82043; 82570; 83735; 84439; 84443

== ENCOUNTER 2024-03-08 07:55 | Emergency (ER) | payer MEDICARE, SELFPAY ==
[2024-03-08 08:00] VITALS: BP 178/79; PULSE 86; RESP 20; TEMP 36.8; O2SAT 99
[2024-03-08 08:10] VITALS: BP 178/79; PULSE 86; RESP 20; TEMP 36.8; O2SAT 99
--- NOTE | 2024-03-08 08:28 | W.ED.GENAD ---
Discharge Plan Disposition Patient Disposition: Home Condition: Good Discharge Details Clinical Impression: Cellulitis at site of vaccination, Gout Primary Care Provider: Kei Dueñas ED Provider: Niesha Fair Home Meds and New Rx's Prescriptions: New cephalexin 500 mg capsule 500 mg PO QID 5 Days Qty: 20 0RF Continued metformin 500 mg tablet 500 mg PO BID vitamin B complex Tablet 1 tab PO DAILY ascorbic acid (vitamin C) 1,000 mg tablet 1 g PO DAILY Januvia 100 mg tablet 100 mg PO DAILY Levemir FlexTouch U100 Insulin 100 UNIT/ML insulin pen 20 units SQ HS Patient Comments: pt. states she takes anywhere between 9 am and 2 pm Invokana 100 mg tablet 100 mg PO DAILY levothyroxine 100 mcg tablet 100 mcg PO DAILY atorvastatin 20 mg tablet 20 mg PO DAILY amlodipine 10 mg tablet 10 mg PO DAILY Patient Comments: pt unsure if she still takes losartan 100 mg tablet 100 mg PO DAILY calcium carbonate [Calcium 600] 600 mg calcium (1,500 mg) Tablet 1,200 mg PO DAILY coenzyme Q10 [CoQ-10] 100 mg Capsule 200 mg PO DAILY zinc 50 mg Capsule 50 mg PO DAILY cholecalciferol (vitamin D3) [Vitamin D3] 125 mcg (5,000 unit) Tablet 125 mcg PO DAILY Discharge Instructions Additional Instructions: Please br[facility] first thing Sunday morning to schedule a follow-up appointment to have your left arm rechecked and to discuss your gout management. I have prescribed an antibiotic called cephalexin. Please take 4 times a day for 5 days as prescribed. Take the full course. Continue taking allopurinol daily as prescribed. Return to emergency care if you develop new fever/chills, body aches, numbness in your left arm, general feeling of unwellness, or if you are very worried and need to be rechecked again immediately Referrals: Smith Judd [ NON-[facility] STAFF PHYSICIAN] - HPI General Date/Time Provider Initiated Documentation: 03/08/24 08:03. HPI Narrative: Erika is a 83 year old female with history of CKD, IDDM, and gout who presents to emergency dept for evaluation of reddened area at site of injection. She had a flu shot on 02/20/2024 in the left deltoid, says it has been hot and warm with tenderness to palpation since then. She is currently being treated for gout with allopurinol daily and prednisone which she just completed. Some mild tenderness at the site, but says it is overall improving. Denies associated fever/chills, left arm numbness/tingling or weakness, change in p.o. intake, change in bowel or bladder function, other rashes. She does not check her blood sugars regularly, says she last checked it about a week ago. Denies history of skin infections. Physical exam reassuring. Patient is alert and oriented, no acute distress. Approximately 4 cm x 3 cm erythematous area at site of pneumococcal injection. No induration or abscess. No crusting or drainage. Painless range of motion of arm, elbow, and wrist. She has some mild swelling and erythema to distal ulna, painless range of motion to wrist. Full range of motion to hand. History and presentation consistent with cellulitis at injection site. No concern for systemic infection/extension of infection requiring diagnostic imaging or labs at this time. Not consistent with abscess at this time. Left wrist erythema consistent with diagnosis of gout for which she is currently being treated. As she is voicing confusion about her medications, recommend follow-up with PCP to discuss gout management and to have cellulitis rechecked. Will treat with Keflex x 5 days. Hypertension noted on VS; pt is otherwise feeling well. This is currently being treated with multiple medications, recommend recheck at PCP's office. Reviewed discharge instructions with patient. She is agreeable with plan of care. Related Data Home Medications ?Medication ?Instructions ?Recorded ?Confirmed amlodipine 10 mg tablet 10 mg PO DAILY 09/06/20 11/16/22 atorvastatin 20 mg tablet 20 mg PO DAILY 09/06/20 03/08/24 calcium carbonate (Calcium 600) 1,200 mg PO DAILY 09/06/20 03/08/24 cholecalciferol (vitamin D3) 125 125 mcg PO DAILY 09/06/20 03/08/24 mcg (5,000 unit) tablet (Vitamin D3) coenzyme Q10 100 mg capsule 200 mg PO DAILY 09/06/20 03/08/24 (CoQ-10) losartan 100 mg tablet 100 mg PO DAILY 09/06/20 03/08/24 zinc 50 mg capsule 50 mg PO DAILY 09/06/20 03/08/24 sitagliptin phosphate 100 mg 100 mg PO DAILY 05/19/21 03/08/24 tablet (Januvia) ascorbic acid (vitamin C) 1,000 mg 1 g PO DAILY 11/17/21 03/08/24 tablet insulin detemir U-100 100 unit/mL 20 units SQ HS 11/17/21 03/08/24 (3 mL) subcutaneous pen (Levemir FlexTouch U-100 Insulin) vitamin B complex 1 tab PO DAILY 11/17/21 03/08/24 metformin 500 mg tablet 500 mg PO BID 11/16/22 03/08/24 canagliflozin 100 mg tablet 100 mg PO DAILY 03/08/24 03/08/24 (Invokana) cephalexin 500 mg capsule 500 mg PO QID 5 days #20 caps 03/08/24 levothyroxine 100 mcg tablet 100 mcg PO DAILY 03/08/24 03/08/24 Previous Rx's ?Medication ?Instructions ?Recorded cephalexin 500 mg capsule 500 mg PO QID 5 days #20 caps 03/08/24 Allergies Allergy/AdvReac Type Severity Reaction Status Date / Time No Known Allergies Allergy Unverified 03/08/24 08:03 General Stated Complaint: Cellulitis JUSTIN: 4 Review of Systems Narrative: see HPI Exam Const General: cooperative, healthy appearing, comfortable, no acute distress, well developed and well groomed Nutritional Appearance: average body habitus Resp Effort & Inspection: normal respiratory effort and able to speak in complete sentences Skin Rashes: other (Erythematous patch 4 cm x 3 cm at site of injection) Extrem General: normal gait Right upper extremity: normal to inspection Left upper extremity: wrist Details: swelling Location: other (with erythema to distal ulna) Course Vital Signs Vital signs: Vital Signs Temperature 36.8 C 03/08/24 08:00 Pulse 86 03/08/24 08:00 Respiratory Rate 20 03/08/24 08:00 Blood Pressure 178/79 H 03/08/24 08:00 Pulse Oximetry 99 03/08/24 08:00 Temperature 36.8 C 03/08/24 08:10 Temperature Source Oral 03/08/24 08:10 Pulse 86 03/08/24 08:10 Respiratory Rate 20 03/08/24 08:10 Blood Pressure 178/79 H 03/08/24 08:10 Blood Pressure Position Sitting 03/08/24 08:10 Pulse Oximetry 99 03/08/24 08:10 Oxygen Delivery Method Room Air 03/08/24 08:10 Oxygen Flow Rate 0 03/08/24 08:10 Pain Level 5 03/08/24 08:10 Medical Decision Making Quality:SDOH Health Related Social Needs: No Data to Display PFSH All Active Problems (Updated 03/08/24 @ 08:28 by Niesha Qureshi) Gout (Chronic) Cellulitis at site of vaccination (Acute) Serrated adenoma of colon (Acute) Tubular adenoma of colon (Acute) Hyperplastic colon polyp (Acute) Vitamin D deficiency (Acute) Chronic kidney disease (CKD) stage G1/A3, glomerular filtration rate (GFR) equal to or greater than 90 mL/min/1.73 square meter and albuminuria creatinine ratio greater than 300 mg/g (Acute) Heart murmur, systolic (Acute) Screening for colon cancer (Acute) Sleep apnea (Chronic) Insulin dependent diabetes mellitus (Chronic) Medical History (Updated 03/08/24 @ 08:28 by Niesha Qureshi) DJD (degenerative joint disease) Hypothyroidism associated with surgical procedure Hypomagnesemia Prepatellar bursitis Nocturia Parotid cyst Tubulovillous adenoma of colon Pneumonia Back pain 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 Gonzalez 05/27/20 The left parotid cyst seems to be significantly smaller, and was previously aspirated for thin clear liquid. Hyperlipidemia Diabetes mellitus takes Lantus. 2012 HgbA1c 6.8. 2015 HgbA1c 6.5. No end organ damage. Hypothyroidism (acquired) s/p thyroidectomy for ? thryoid CA. On thyroid replacement. Pt's Parathyroid Hormone 03/2016 = 9 (12-77) Essential hypertension Elevated lipids Hypertension Pain in left hip Surgical History (Updated 02/14/22 @ 08:16 by Pauline No RN) Trigger finger, right index finger DOS: 10/07/18 Trigger Finger release trigger finger 2012 Total replacement of hip (~12/2013) L Total Hip Arthroplasty. Thyroid ? CA. No further Rx required. Nl Ca levels. Pt. reports thyroid was removed Open Carpal Tunnel release hammer toe and carpal tunnel in [place] Colonoscopy - MAC (~01/2022) Colonoscopy - IV Sedation 2011 Appendectomy 1994 History of Surgical Procedure a. Hammer toe procedure on her left foot. b. Appendectomy. c. Bilateral carpal tunnel releases, trigger releases, bilateral middle fingers. d. Colonoscopy. Family History Sister Personal history of malignant neoplasm ovarian CA. in 50's Social History Smoking/Tobacco Use Status: Never Smoking risk assessment performed?: Yes Alcohol Intake: current Alcohol Intake frequency: holidays/special occasions only Alcohol type: beer and wine Drug use: Never Substance use type: does not use Household members: children and other Details: D. lives with son and son in law. 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
== END 2024-03-08 08:34 | disposition home or self-care (01) ==
PROVIDERS: Emergency Provider Nurse Practitioner Family; PCP Family Medicine
DX: L03.114 Cellulitis of left upper limb (principal); M10.9 Gout, unspecified
CPT/HCPCS: 99283; 99284

== ENCOUNTER 2024-06-02 10:13 | Outpatient (REF) | payer MEDICARE, SELFPAY ==
[2024-06-02 16:15] LABS: FREE T4 1.49 ng/dL (0.76-1.46); TSH 0.01 uIU/mL (0.36-3.74)
[2024-06-02 16:18] LABS: Hemoglobin A1C 6.7 % (<5.7)
[2024-06-02 16:31] LABS: COMMENT (LAB VIEW ONLY) 47.29 mg/dL
[2024-06-02 16:33] LABS: Microalb ug/mg Crea 204.3 ug/mg Cr
== END 2024-06-02 10:14 | disposition home or self-care (01) ==
LOC: NCHCN 10:13
PROVIDERS: PCP Student in an Organized Health Care Education/Training Program; Visit Provider Student in an Organized Health Care Education/Training Program
DX: E11.9 Type 2 diabetes mellitus without complications (principal)
CPT/HCPCS: 82043; 82570; 83036; 84439; 84443

== ENCOUNTER 2024-07-16 10:40 | Outpatient (CLI) | payer MEDICARE, SELFPAY ==
[2024-07-16 10:51] LABS: FREE T4 1.08 ng/dL (0.76-1.46); TSH 0.21 uIU/mL (0.36-3.74)
== END 2024-07-16 10:41 | disposition home or self-care (01) ==
LOC: LBO 10:40
PROVIDERS: PCP Student in an Organized Health Care Education/Training Program; Visit Provider Student in an Organized Health Care Education/Training Program
DX: E03.9 Hypothyroidism, unspecified (principal)
CPT/HCPCS: 36415; 84439; 84443

== ENCOUNTER 2024-10-14 08:11 | Inpatient (IN) | payer MEDICARE, SELFPAY ==
[2024-10-14] VITALS (31 sets, daily range): BP systolic 142–205; BP diastolic 71–175; PULSE 69–98; RESP 10–27; TEMP 36.5–37.1; O2SAT 95–99
--- NOTE | 2024-10-14 | DI.MRI_ITS ---
Exam(s) MR BRAIN WO EXAM: MR BRAIN WO CLINICAL HISTORY: ? frontal lobe meningioma vs hematoma TECHNIQUE: Multiplanar multisequence MRI of the brain was performed. COMPARISON: CT CT HEAD WO from 10/14/2024 FINDINGS: CEREBRAL PARENCHYMA: There is a moderate size right parietal scalp hematoma. No obvious skull fracture. There is a large left extra-axial T1 isointense and T2 isointense lesion which measures approximately 7 cm AP x 2 cm deep by 4 cm wide, corresponding to what is seen on the proceeding CT scan earlier sa me date. This exhibits significant mass effect on the left frontal lobe sulci with significant white matter edema and also mass effect on the frontal horn of the left lateral. There is associated shif t of midline structures to the right-side approximately 5 mm. In addition, there is a thin right parietal acute subdural hematoma along the right tentorium cerebel li. There is no intra-parenchymal hemorrhage There are no areas of restricted diffusion in the brain to suggest acute infarct. PITUITARY GLAND: No mass nor parasellar abnormality. No obvious abnormality in the cavernous sinuses. FLOW VOIDS: The expected flow void are noted. No evidence of obvious aneurysm nor obvious vascular ma lformation. PARANASAL SINUSES: The visualized paranasal sinuses appear unremarkable. No obvious finding ORBITS: No obvious findings. IMPRESSION: 1. There is a moderate size right parietal scalp hematoma and there is a thin right parietal acute s ubdural hematoma extending along the right tentorium cerebelli and posterior falx cerebri. There is no intraparenchymal hemorrhage. 2. There is a prominent left frontal extra-axial mass which on this noninfused study is isointense t o brain on both T1 and T2 images and therefore most probably a prominent meningioma. This is associa saud with 5 mm rightward midline shift and does exhibit surrounding white matter edema with left front al sulcal effacement and mass effect upon the frontal horn of the left lateral ventricle. DATA REPOSITORY:
--- NOTE | 2024-10-14 08:15 | RT.EKG_ITS ---
APPROVED REPORT Exam: Resting ECG Reason for Exam: ?syncope Patient Location: E HR:73 bpm ECG Measurements Heart Rate 73 AXIS ND 190 P 39 QRSd 85 QRS 2 QT 447 T 30 QTc 495 Conclusion Sinus rhythm...normal P axis, V-rate 60- 99 Inferior infarct, old...Q >35mS, II III aVF No Occlusion VT
[2024-10-14 08:55] LABS: Lactate 1.6 mmol/L (<or=2.0)
[2024-10-14 08:58] LABS: Abs Immature Grans 0.03 10^3/uL (0.0-0.06); Absolute Basophil Count 0.03 10^3/uL (0.0-0.2); Absolute Lymphocyte Count 0.67 10^3/uL (1.2-3.4); Absolute Monocyte Count 0.41 10^3/uL (0.1-0.8); Absolute Neutrophil Count 7.91 10^3/uL (1.2-6.7); Basophils % 0.3 %; HCT 45.5 % (36.0-46.0); HGB 15.2 g/dL (11.2-15.7); Immature Grans % 0.3 %; Lymphocytes % 7.4 %; MCH 30.1 pg (27.0-33.0); MCHC 33.4 % (32.0-36.0); MCV 90 fL (80-95); MPV 8.8 fL (8.0-11.0); Monocytes % 4.5 %; Neutrophils % 87.5 %; Platelet Count 370 10^3/uL (130-400); RBC 5.05 10^6/uL (3.93-5.22); RDW-SD 42.9 fL; WBC 9.05 10^3/uL (4.4-10.8)
[2024-10-14 09:25] LABS: ALT 29 U/L (14-59); AST 44 U/L (15-37); Albumin 4.3 g/dL (3.4-5.0); Alkaline Phosphatase 112 U/L (46-116); Anion Gap 8.7 mmol/L (3-11); BUN 20 mg/dL (7-18); Bilirubin, Total 0.8 mg/dL (0.2-1.0); CO2 29.3 mmol/L (21.0-32.0); CREATININE 1.3 mg/dL (0.55-1.02); Calcium 9.4 mg/dL (8.5-10.1); Chloride 102 mmol/L (98-107); Estimated GFR 41.31 (mL/min/1.73m2); Glucose 128 mg/dL (74-106); Lipase 38 U/L (<78); Magnesium 1.8 mg/dL (1.8-2.4); Potassium 3.5 mmol/L (3.5-5.1); Sodium 140 mmol/L (136-145); Total Protein 8.4 g/dL (6.4-8.2); Troponin I 18 ng/L (<or=51)
[2024-10-14 09:31] LABS: Creatine Kinase 1263 U/L (26-192)
[2024-10-14] MEDS: Normal Saline 1,000 ML 1000 ML IV (10:01)
[2024-10-14 10:33] LABS: Troponin I 17 ng/L (<or=51)
--- NOTE | 2024-10-14 10:45 | W.ED.GENAD ---
Discharge Plan Disposition Patient Disposition: Admit to [facility] Condition: Stable Discharge Details Clinical Impression: Rhabdomyolysis Admit Date/Time: 10/14/24 10:53 Admit Provider: Franklin Leary Attending Provider: Franklin Leary Primary Care Provider: Smith Judd ED Provider: Jacob Jackson Discharge Data Discharge Date/Time-TO BE ENTERED AT DEPARTURE: 10/14/24 11:37 HPI General Date/Time Provider Initiated Documentation: 10/14/24 08:15. HPI Narrative: 83 year-old female presents to ED today by EMS with a chief complaint of fall, found down by roommate, unknown time with onset this morning. Patient doesn't remember the fall but not complaining of any pain- answering questions appropriately. Quality described as not painful anywhere, no radiation to neck pain, abdominal pain, recent fever, cough, shortness of breath, palpitations, chest pain, vision changes, tinnitus, headache. Severity is described as mild. Palliating factors include nothing specific. Provoking factors include nothing specific. Events leading up to the incident/Associated Symptoms: Patient is a diabetic. Patient not anticoagulated. Related Data Home Medications ?Medication ?Instructions ?Recorded ?Confirmed amlodipine 10 mg tablet 10 mg PO DAILY 09/06/20 10/14/24 atorvastatin 20 mg tablet 20 mg PO DAILY 09/06/20 10/14/24 calcium carbonate (Calcium 600) 1,200 mg PO DAILY 09/06/20 10/14/24 cholecalciferol (vitamin D3) 125 125 mcg PO DAILY 09/06/20 10/14/24 mcg (5,000 unit) tablet (Vitamin D3) coenzyme Q10 100 mg capsule 200 mg PO DAILY 09/06/20 10/14/24 (CoQ-10) losartan 100 mg tablet 100 mg PO DAILY 09/06/20 10/14/24 zinc 50 mg capsule 50 mg PO DAILY 09/06/20 10/14/24 ascorbic acid (vitamin C) 1,000 mg 1 g PO DAILY 11/17/21 10/14/24 tablet metformin 500 mg tablet 500 mg PO BID 11/16/22 10/14/24 canagliflozin 100 mg tablet 100 mg PO DAILY 03/08/24 10/14/24 (Invokana) levothyroxine 100 mcg tablet 75 mcg PO DAILY 03/08/24 10/14/24 allopurinol 200 mg tablet 200 mg PO DAILY 10/14/24 10/14/24 dapagliflozin propanediol 5 mg 5 mg PO DAILY 10/14/24 10/14/24 tablet (Farxiga) insulin glargine 100 unit/mL (3 28 unit subcut QAM 10/14/24 10/14/24 mL) subcutaneous pen (Lantus Solostar U-100 Insulin) magnesium 200 mg tablet 400 mg PO DAILY 10/14/24 10/14/24 Allergies Allergy/AdvReac Type Severity Reaction Status Date / Time No Known Allergies Allergy Unverified 10/14/24 08:21 General Stated Complaint: AMS/LOC JUSTIN: 2 Review of Systems All systems reviewed & are unremarkable except as noted in HPI and below Exam Narrative Exam Narrative: GENERAL APPEARANCE: Well-nourished, non-toxic, awake and alert, no acute distress. SKIN: Warm, pink, dry, intact, without rashes/lesions/ulcerations. HEAD: Normocephalic, no visible scalp hematoma, normal hair distribution for gender/age. EYES: Normal conjunctiva, no exudates on lids/lashes, EOMs intact. ENT: Nares patent, no circumoral cyanosis, no facial swelling NECK: Supple, trachea midline, painless cervical ROM- no midline vertebral tenderness/crepitus/step-offs. LUNGS/CHEST: Lungs CTA bilaterally- no rhonchi/rales/wheezes diffusely, non-labored respirations, normal A/P diameter, symmetrical expansion, no chest wall deformity HEART (CV/PV): Regular rate and rhythm without murmur, no peripheral edema, no JVD. ABDOMEN: Soft, non-distended, no guarding, no tenderness, no ecchymosis, no rigidity, no CVA tenderness to percussion bilaterally. MSK: Normal ROM, no swelling/deformity to bilateral UEs or LEs, moving all extremities without weakness, no cyanosis, spine midline without tenderness, normal curvature. NEURO: Mental Status AAOx3 - alert to person, place, time, identifies that she's at [facility], it's sunday, but doesn't remember falling No facial droop, no forehead involvement, no dysmetria with FNF Motor: No focal weakness - strength 5/5 in bilateral UEs and LEs, proximal and distal, symmetric. Sensory: sensation intact to light touch globally. Gait normal: patient ambulated in ED room without issue, normal coordination PSYCH: euthymic, cooperative, pleasant, appropriate speech Course Vital Signs Vital signs: Vital Signs Temperature 36.6 C 10/14/24 08:15 Pulse 75 10/14/24 08:15 Respiratory Rate 18 10/14/24 08:15 Blood Pressure 205/91 H 10/14/24 08:15 Pulse Oximetry 98 10/14/24 08:15 Temperature 36.6 C 10/14/24 08:21 Temperature Source Oral 10/14/24 08:21 Pulse 75 10/14/24 08:21 Respiratory Rate 13 10/14/24 10:02 Respiratory Effort Normal 10/14/24 10:02 Respiratory Depth Normal 10/14/24 10:02 Respiratory Pattern Normal 10/14/24 10:02 Blood Pressure 205/91 H 10/14/24 08:21 Blood Pressure Position Sitting 10/14/24 08:21 Pulse Oximetry 98 10/14/24 08:21 Oxygen Delivery Method Room Air 10/14/24 08:21 Oxygen Flow Rate 0 10/14/24 08:21 Lab/Test Results Lab/Test Results: Laboratory Tests Range/Units 10/14/24 10/14/24 08:45 10:02 WBC (4.4-10.8) 10^3/uL 9.05 RBC (3.93-5.22) 10^6/uL 5.05 Hgb (11.2-15.7) g/dL 15.2 Hct (36.0-46.0) % 45.5 MCV (80-95) fL 90 MCH (27.0-33.0) pg 30.1 MCHC (32.0-36.0) % 33.4 RDW (11.7-14.6) % 13.0 Plt Count (130-400) 10^3/uL 370 MPV (8.0-11.0) fL 8.8 Immature Gran % % 0.3 Neutrophils % % 87.5 Lymphocytes % % 7.4 Monocytes % % 4.5 Eosinophils % % 0.0 Basophils % % 0.3 Nucleated RBC % (0.0-0.3) % 0.0 Absolute Neutrophils (1.2-6.7) 10^3/uL 7.91 H Absolute Lymphocytes (1.2-3.4) 10^3/uL 0.67 L Absolute Monocytes (0.1-0.8) 10^3/uL 0.41 Absolute Eosinophils (0.0-0.7) 10^3/uL 0.00 Absolute Basophils (0.0-0.2) 10^3/uL 0.03 VBG Lactate (<or=2.0) mmol/L 1.6 Sodium (136-145) mmol/L 140 Potassium (3.5-5.1) mmol/L 3.5 Chloride (98-107) mmol/L 102 Carbon Dioxide (21.0-32.0) mmol/L 29.3 Anion Gap (3-11) mmol/L 8.7 BUN (7-18) mg/dL 20 H Creatinine (0.55-1.02) mg/dL 1.3 H Est GFR (CKD-EPI 2020) (mL/min/1.73m2) 41.31 Glucose (74-106) mg/dL 128 H Calcium (8.5-10.1) mg/dL 9.4 Magnesium (1.8-2.4) mg/dL 1.8 Total Bilirubin (0.2-1.0) mg/dL 0.8 AST (15-37) U/L 44 H ALT (14-59) U/L 29 Alkaline Phosphatase (46-116) U/L 112 Creatine Kinase (26-192) U/L 1263 H Troponin I (<or=51) ng/L 18 17 Total Protein (6.4-8.2) g/dL 8.4 H Albumin (3.4-5.0) g/dL 4.3 Lipase (<78) U/L 38 Medical Decision Making This dictation utilizes [id number] dictation software and may contain unedited grammatical errors. 83-year-old female presents by EMS with a chief complaint of found down by her roommate, does not recall events, has no pain anywhere, smells of foul urine, otherwise knows the date and day, aware of her name and that she is at [facility], has stable vitals. Patient does smell of urine, denies recent illness. Patients' medical history: Hypomagnesemia, diabetes mellitus CKD. Family and social history: lives at home with roommate. Pertinent exam findings / vital signs include no bruising, no periorbital ecchymosis, EOMS intact, neuro intact, no vertebral tenderness, standing without assistance here in the ED. Differential / pathologies of concern include fall, UTI, rhabdomyolysis, DKA, not fracture. Diagnostic studies of: - CBC, CMP, lactate, CK, magnesium, lipase, serial troponins, EKG -CK 1250, rhabdo -not acute renal failure -no evidence of trauma, no imaging performed- standing without assistance here. -discussed CT head with hospitalist, but held off with GCS14 -EKG without ischemic changes Interventions of: -Consulted Hospitalist for admission at 1045- Dr. Leary accepted. ED Course/Assessment/Plan: 83-year-old female presents after being found down by her roommate for an unknown period of time, seems somewhat confused and is a GCS of 14, knew was Sunday knew she was at [facility] but just could not remember falling, denies any pain anywhere, was able to stand and change her underwear without issue, she was found to be in rhabdomyolysis, I do question whether she had a UTI, I did discuss with the hospitalist possibly scanning her head but she had no signs of major trauma on initial exam, plan to give IV fluids and admit for rhabdomyolysis, would expect more significant neurodeficits for any kind of TBI sustained from the fall after this period of time and patient is not anticoagulated. Patient admitted to hospitalist service for rhabdomyolysis. Disposition of Rhabdomyolysis. Patient verbalized understanding of the plan and return to ED criteria and engaged in shared decision making. Medical Records Medical records reviewed: Yes I reviewed the patient's medical records. Lab Data Lab results reviewed: Yes I reviewed the patient's lab results. Labs: Laboratory Tests Range/Units 10/14/24 10/14/24 08:45 10:02 WBC (4.4-10.8) 10^3/uL 9.05 RBC (3.93-5.22) 10^6/uL 5.05 Hgb (11.2-15.7) g/dL 15.2 Hct (36.0-46.0) % 45.5 MCV (80-95) fL 90 MCH (27.0-33.0) pg 30.1 MCHC (32.0-36.0) % 33.4 RDW (11.7-14.6) % 13.0 Plt Count (130-400) 10^3/uL 370 MPV (8.0-11.0) fL 8.8 Immature Gran % % 0.3 Neutrophils % % 87.5 Lymphocytes % % 7.4 Monocytes % % 4.5 Eosinophils % % 0.0 Basophils % % 0.3 Nucleated RBC % (0.0-0.3) % 0.0 Absolute Neutrophils (1.2-6.7) 10^3/uL 7.91 H Absolute Lymphocytes (1.2-3.4) 10^3/uL 0.67 L Absolute Monocytes (0.1-0.8) 10^3/uL 0.41 Absolute Eosinophils (0.0-0.7) 10^3/uL 0.00 Absolute Basophils (0.0-0.2) 10^3/uL 0.03 VBG Lactate (<or=2.0) mmol/L 1.6 Sodium (136-145) mmol/L 140 Potassium (3.5-5.1) mmol/L 3.5 Chloride (98-107) mmol/L 102 Carbon Dioxide (21.0-32.0) mmol/L 29.3 Anion Gap (3-11) mmol/L 8.7 BUN (7-18) mg/dL 20 H Creatinine (0.55-1.02) mg/dL 1.3 H Est GFR (CKD-EPI 2020) (mL/min/1.73m2) 41.31 Glucose (74-106) mg/dL 128 H Calcium (8.5-10.1) mg/dL 9.4 Magnesium (1.8-2.4) mg/dL 1.8 Total Bilirubin (0.2-1.0) mg/dL 0.8 AST (15-37) U/L 44 H ALT (14-59) U/L 29 Alkaline Phosphatase (46-116) U/L 112 Creatine Kinase (26-192) U/L 1263 H Troponin I (<or=51) ng/L 18 17 Total Protein (6.4-8.2) g/dL 8.4 H Albumin (3.4-5.0) g/dL 4.3 Lipase (<78) U/L 38 Quality:SDOH Health Related Social Needs: No Data to Display PFSH All Active Problems (Updated 10/14/24 @ 10:59 by Franklin Leary MD) Hypertension (Chronic) Rhabdomyolysis (Acute) Serrated adenoma of colon (Acute) Tubular adenoma of colon (Acute) Hyperplastic colon polyp (Acute) Vitamin D deficiency (Acute) Chronic kidney disease (CKD) stage G1/A3, glomerular filtration rate (GFR) equal to or greater than 90 mL/min/1.73 square meter and albuminuria creatinine ratio greater than 300 mg/g (Acute) Heart murmur, systolic (Acute) Screening for colon cancer (Acute) Sleep apnea (Chronic) Insulin dependent diabetes mellitus (Chronic) Medical History (Updated 10/14/24 @ 10:59 by Franklin Leary MD) DJD (degenerative joint disease) Hypothyroidism associated with surgical procedure Hypomagnesemia Prepatellar bursitis Nocturia Parotid cyst Tubulovillous adenoma of colon Pneumonia Back pain 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 Gonzalez 05/27/20 The left parotid cyst seems to be significantly smaller, and was previously aspirated for thin clear liquid. Hyperlipidemia Diabetes mellitus takes Lantus. 2012 HgbA1c 6.8. 2015 HgbA1c 6.5. No end organ damage. Hypothyroidism (acquired) s/p thyroidectomy for ? thryoid CA. On thyroid replacement. Pt's Parathyroid Hormone 03/2016 = 9 (12-77) Essential hypertension Elevated lipids Pain in left hip Surgical History (Updated 02/14/22 @ 08:16 by Pauline oN RN) Trigger finger, right index finger DOS: 10/07/18 Trigger Finger release trigger finger 2013 Total replacement of hip (~12/2013) L Total Hip Arthroplasty. Thyroid ? CA. No further Rx required. Nl Ca levels. Pt. reports thyroid was removed Open Carpal Tunnel release [place] - MAC (~01/2022) Colonoscopy - IV Sedation 2011 Appendectomy 1994 History of Surgical Procedure a. Hammer toe procedure on her left foot. b. Appendectomy. c. Bilateral carpal tunnel releases, trigger releases, bilateral middle fingers. d. Colonoscopy. Family History Sister Personal history of malignant neoplasm ovarian CA. in 50's Social History Smoking/Tobacco Use Status: Never Smoking risk assessment performed?: Yes Alcohol Intake: current Alcohol Intake frequency: holidays/special occasions only Alcohol type: beer and wine Drug use: Never Substance use type: does not use Household members: children and other Details: D. lives with son and son in law. 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
--- NOTE | 2024-10-14 10:57 | HPE_ITS ---
Date of service: 10/14/24 Time of Service: 10:57 Assessment and Plan Assessment and plan (1) Meningioma: Status: Acute Assessment and plan: - Head CT after admission to the hospital showed concerns for left frontal lobe epidural hematoma - Discussion with [facility] [place]; frontal lobe area of question has surrounding calcifications while there is some surrounding edema and minimal mass effect there is no midline shift, this is most likely a meningioma especially given patient's GCS of 14 and otherwise normal exam - [facility] neurosurgery recommended MRI of the brain for further evaluation, will reach out for teleneuro consultation once results are available (2) Subdural hematoma: Status: Acute Assessment and plan: - Very small posterior subdural hematoma in the area of the patient's posterior scalp hematoma - Discussed with [facility] neurosurgery, did not have any additional recommendations regarding small subdural at this time (3) Seizure: Status: Acute Assessment and plan: - Given likely meningioma as noted above, this is likely because of patient's fall, as meningioma may have caused seizure, and subsequent mild memory loss/confusion may be secondary to postconcussive syndrome - Started 1 g Keppra IV twice daily as recommended by [facility] neurosurgery - Follow-up MRI results as noted above (4) Rhabdomyolysis: Status: Acute Assessment and plan: - Patient found down by roommate, unknown amount of time - Found to have a CK of 12,000 consistent with rhabdomyolysis - Patient is known to have CKD though creatinine appears to be at baseline at this time - Status post 1 L normal saline in the emergency department - Will continue normal saline 75 mL an hour - Follow-up a.m. CK and BMP (5) Chronic kidney disease (CKD) stage G1/A3, glomerular filtration rate (GFR) equal to or greater than 90 mL/min/1.73 square meter and albuminuria creatinine ratio greater than 300 mg/g: Status: Acute Assessment and plan: -Appears to be at baseline with creatinine ranging between 1.3 and 1.4; 1.3 on admission - Follow-up a.m. BMP (6) Insulin dependent diabetes mellitus: Status: Chronic Assessment and plan: - Continue home insulin regimen -SSI, CCD (7) Hypertension: Status: Chronic Assessment and plan: -hold home antihypertensives History of Present Illness History of Present Illness Chief Complaint: found down Narrative: 83-year-old female with a past medical history of IDDM, hypertension, hyperlipidemia presents to the emergency department after being found down. Patient does not remember circumstances leading to her falling but apparently she was found by her roommate this morning on the floor, reportedly covered in feces. She denies any headache, lightheadedness, dizziness, chest pain, shortness of breath, nausea vomiting or diarrhea. In the emergency department the patient was noted as having normal physical exam did not appear to have any signs of trauma. She was noted as being mildly hypertensive though she did not take any of her antihypertensives today. Due to lack of visible trauma or patient complaining of headache, lightheadedness dizziness nausea or vomiting, head CT was not performed but she did have a chest CT which did not show any acute findings. CBC and CMP were unremarkable however, patient was noted as having a CK of 12,000 for which she was given a 1 L normal saline bolus. At which time emergency room PA paged hospitalist for admission for patient with rhabdomyolysis. Review of Systems All systems reviewed & are unremarkable except as noted in HPI and below PFSH All Active Problems (Updated 10/14/24 @ 16:09 by Franklin Leary MD) Subdural hematoma (Acute) Seizure (Acute) Meningioma (Acute) Hypertension (Chronic) Rhabdomyolysis (Acute) Serrated adenoma of colon (Acute) Tubular adenoma of colon (Acute) Hyperplastic colon polyp (Acute) Vitamin D deficiency (Acute) Chronic kidney disease (CKD) stage G1/A3, glomerular filtration rate (GFR) equal to or greater than 90 mL/min/1.73 square meter and albuminuria creatinine ratio greater than 300 mg/g (Acute) Heart murmur, systolic (Acute) Screening for colon cancer (Acute) Sleep apnea (Chronic) Insulin dependent diabetes mellitus (Chronic) Medical History (Updated 10/14/24 @ 16:09 by Franklin Leary MD) DJD (degenerative joint disease) Hypothyroidism associated with surgical procedure Hypomagnesemia Prepatellar bursitis Nocturia Parotid cyst Tubulovillous adenoma of colon Pneumonia Back pain 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 Gonzalez 05/27/20 The left parotid cyst seems to be significantly smaller, and was previously aspirated for thin clear liquid. Hyperlipidemia Diabetes mellitus takes Lantus. 2012 HgbA1c 6.8. 2015 HgbA1c 6.5. No end organ damage. Hypothyroidism (acquired) s/p thyroidectomy for ? thryoid CA. On thyroid replacement. Pt's Parathyroid Hormone 03/2016 = 9 (12-77) Essential hypertension Elevated lipids Pain in left hip Surgical History (Updated 02/14/22 @ 08:16 by Pauline No RN) Trigger finger, right index finger DOS: 10/07/18 Trigger Finger release trigger finger 2012 Total replacement of hip (~12/2013) L Total Hip Arthroplasty. Thyroid ? CA. No further Rx required. Nl Ca levels. Pt. reports thyroid was removed Open Carpal Tunnel release hammer toe [place] Colon[place] - MAC (~01/2022) Colonoscopy - IV Sedation 2011 Appendectomy 1994 History of Surgical Procedure a. Hammer toe procedure on her left foot. b. Appendectomy. c. Bilateral carpal tunnel releases, trigger releases, bilateral middle fingers. d. Colonoscopy. Family History Sister Personal history of malignant neoplasm ovarian CA. in 50's Social History Smoking/Tobacco Use Status: Never Smoking risk assessment performed?: Yes Alcohol Intake: current Alcohol Intake frequency: holidays/special occasions only Alcohol type: beer and wine Drug use: Never Substance use type: does not use Household members: children and other Details: D. lives with son and son in law. 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/Scientologist: [employer] Do you feel safe at home: Yes Do you feel safe in your relationship?: Yes Female Reproductive History Menstrual Menopause type: natural History History 2 4 Para 3 Hx # Term Pregnancies 3 Multiple births Hx # Pregnancies Ectopic pregnancies AB induced Hx Number of Living Children 3 AB spontaneous Meds Allergies and Home Medications Allergies Allergy/AdvReac Type Severity Reaction Status Date / Time No Known Allergies Allergy Unverified 10/14/24 08:21 Home Medications ?Medication ?Instructions ?Recorded ?Confirmed ?Type amlodipine 10 mg tablet 10 mg PO DAILY 09/06/20 10/14/24 History atorvastatin 20 mg tablet 20 mg PO DAILY 09/06/20 10/14/24 History calcium carbonate (Calcium 600) 1,200 mg PO DAILY 09/06/20 10/14/24 History cholecalciferol (vitamin D3) 125 125 mcg PO DAILY 09/06/20 10/14/24 History mcg (5,000 unit) tablet (Vitamin D3) coenzyme Q10 100 mg capsule 200 mg PO DAILY 09/06/20 10/14/24 History (CoQ-10) losartan 100 mg tablet 100 mg PO DAILY 09/06/20 10/14/24 History zinc 50 mg capsule 50 mg PO DAILY 09/06/20 10/14/24 History ascorbic acid (vitamin C) 1,000 mg 1 g PO DAILY 11/17/21 10/14/24 History tablet metformin 500 mg tablet 500 mg PO BID 11/16/22 10/14/24 History canagliflozin 100 mg tablet 100 mg PO DAILY 03/08/24 10/14/24 History (Invokana) levothyroxine 100 mcg tablet 75 mcg PO DAILY 03/08/24 10/14/24 History allopurinol 200 mg tablet 200 mg PO DAILY 10/14/24 10/14/24 History dapagliflozin propanediol 5 mg 5 mg PO DAILY 10/14/24 10/14/24 History tablet (Farxiga) insulin glargine 100 unit/mL (3 28 unit subcut QAM 10/14/24 10/14/24 History mL) subcutaneous pen (Lantus Solostar U-100 Insulin) magnesium 200 mg tablet 400 mg PO DAILY 10/14/24 10/14/24 History Exam Narrative Exam Narrative: Well-appearing older female laying in bed in no acute distress, ANO x 4, only sign of confusion was that she did not did not the name of a friend who came to visit her, heart regular rate rhythm, lungs good auscultation bilaterally, abdomen soft, nontender, nondistended, moving all 4 extremities spontaneously, PERRLA, cranial nerves II through XII intact, normal smell sensation and strength in bilateral upper and lower extremities and able to follow commands Results Labs 10/14/24 08:45 10/14/24 08:45 Labs: Laboratory Results - last 24 hr 10/14/24 10/14/24 08:45 10:02 WBC 9.05 RBC 5.05 Hgb 15.2 Hct 45.5 MCV 90 MCH 30.1 MCHC 33.4 RDW 13.0 Plt Count 370 MPV 8.8 Immature Gran % 0.3 Neutrophils % 87.5 Lymphocytes % 7.4 Monocytes % 4.5 Eosinophils % 0.0 Basophils % 0.3 Nucleated RBC % 0.0 Absolute Neutrophils 7.91 H Absolute Lymphocytes 0.67 L Absolute Monocytes 0.41 Absolute Eosinophils 0.00 Absolute Basophils 0.03 VBG Lactate 1.6 Sodium 140 Potassium 3.5 Chloride 102 Carbon Dioxide 29.3 Anion Gap 8.7 BUN 20 H Creatinine 1.3 H Est GFR (CKD-EPI 2020) 41.31 Glucose 128 H Calcium 9.4 Magnesium 1.8 Total Bilirubin 0.8 AST 44 H ALT 29 Alkaline Phosphatase 112 Creatine Kinase 1263 H Troponin I 18 17 Total Protein 8.4 H Albumin 4.3 Lipase 38 Last Vital Signs Temp 98 F 10/14/24 08:21 Pulse 77 10/14/24 10:48 Resp 17 10/14/24 10:48 BP 183/127 H 10/14/24 10:48 Pulse Ox 98 10/14/24 10:20 Time Spent Time spent with Patient: >75 minutes Time was spent: preparing to see the patient(eg.review tests), obtaining and/or reviewing separately otained hiistory, ordering medications,tests, procedures, referring, communicating with other health hearing care professional, indepentently interpreting results, counseling the patient and care coordination
[2024-10-14 11:18] LABS: Bilirubin Negative (Negative); Blood Small (Negative); Clarity Clear (Clear); Glucose Negative (Negative); Ketones Negative (Negative); Leukocyte Esterase Negative (Negative); Nitrite Negative (Negative); Urobilinogen 0.2 mg/dL (Up to 0.2)
[2024-10-14 11:28] LABS: Bacteria Few HPF (Negative); C & S Indicated? No; Casts Negative LPF (Negative); Crystals Negative HPF (Negative); Epithelial Cells Moderate HPF (Negative); Mucus Trace (Negative); Other Cells Few Renal (Negative)
--- NOTE | 2024-10-14 13:37 | W.PC.ACHO ---
Registration Status: Primary Language: Preferred Language: ED Information & Data Chief Complaint AMS/LOC 10/14/24 10:45 Triage Note Patient found on the floor 10/14/24 08:15 by roommate, naked, covered in feces. Patient denies any injuries. 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 Hyperlipidemia Diabetes mellitus Hypothyroidism (acquired) Essential hypertension Elevated lipids Pain in left hip (Last Updated 02/14/22 @ 08:16 by Pauline No RN) Trigger finger, right index finger Trigger Finger release Total replacement of hip (~12/2013) Thyroid Open Carpal Tunnel release Colonoscopy - MAC (~01/2022) Colonoscopy - IV Sedation Appendectomy History of Surgical Procedure Most Recent Vital Signs Temperature 36.6 C 10/14/24 08:21 Temperature Source Oral 10/14/24 08:21 Pulse 77 10/14/24 10:48 Pulse 84 10/14/24 10:48 Respiratory Rate 17 10/14/24 10:48 Respiratory Effort Normal 10/14/24 10:02 Respiratory Depth Normal 10/14/24 10:02 Respiratory Pattern Normal 10/14/24 10:02 Blood Pressure 183/127 H 10/14/24 10:48 Blood Pressure Mean 145 10/14/24 10:48 Blood Pressure Position Sitting 10/14/24 08:21 Pulse Oximetry 98 10/14/24 10:20 Oxygen Delivery Method Room Air 10/14/24 08:21 Oxygen Flow Rate 0 10/14/24 08:21 Allergies No Known Allergies Allergy (Unverified 10/14/24 08:21) Precautions Isolation Standard precaution 10/14/24 08:21 IV IV Catheter Type [Left Peripheral IV Antecubital] IV Catheter Gauge [Left 20 Antecubital] Diagnostics 10/14/24 10/14/24 10/14/24 Range/Units 11:10 10:02 08:45 WBC 9.05 (4.4-10.8) 10^3/uL RBC 5.05 (3.93-5.22) 10^6/uL Hgb 15.2 (11.2-15.7) g/dL Hct 45.5 (36.0-46.0) % MCV 90 (80-95) fL MCH 30.1 (27.0-33.0) pg MCHC 33.4 (32.0-36.0) % RDW 13.0 (11.7-14.6) % Plt Count 370 (130-400) 10^3/uL MPV 8.8 (8.0-11.0) fL Immature Gran % 0.3 % Neutrophils % 87.5 % Lymphocytes % 7.4 % Monocytes % 4.5 % Eosinophils % 0.0 % Basophils % 0.3 % Nucleated RBC % 0.0 (0.0-0.3) % Absolute Neutrophils 7.91 H (1.2-6.7) 10^3/uL Absolute Lymphocytes 0.67 L (1.2-3.4) 10^3/uL Absolute Monocytes 0.41 (0.1-0.8) 10^3/uL Absolute Eosinophils 0.00 (0.0-0.7) 10^3/uL Absolute Basophils 0.03 (0.0-0.2) 10^3/uL VBG Lactate 1.6 (<or=2.0) mmol/L Sodium 140 (136-145) mmol/L Potassium 3.5 (3.5-5.1) mmol/L Chloride 102 (98-107) mmol/L Carbon Dioxide 29.3 (21.0-32.0) mmol/L Anion Gap 8.7 (3-11) mmol/L BUN 20 H (7-18) mg/dL Creatinine 1.3 H (0.55-1.02) mg/dL Est GFR (CKD-EPI 2020) 41.31 (mL/min/1.73m2) Glucose 128 H (74-106) mg/dL Calcium 9.4 (8.5-10.1) mg/dL Magnesium 1.8 (1.8-2.4) mg/dL Total Bilirubin 0.8 (0.2-1.0) mg/dL AST 44 H (15-37) U/L ALT 29 (14-59) U/L Alkaline Phosphatase 112 (46-116) U/L Creatine Kinase 1263 H (26-192) U/L Troponin I 17 18 (<or=51) ng/L Total Protein 8.4 H (6.4-8.2) g/dL Albumin 4.3 (3.4-5.0) g/dL Lipase 38 (<78) U/L Urine Color Yellow (Yellow) Urine Clarity Clear (Clear) Urine pH 7.0 (5-8) Ur Specific [place] 1.010 (1.005-1.025) Urine Protein 100 H (Neg-Trace) mg/dL Urine Ketones Negative (Negative) mg/dL Urine Blood Small H (Negative) Urine Nitrite Negative (Negative) Urine Bilirubin Negative (Negative) Urine Urobilinogen 0.2 (Up to 0.2) mg/dL Ur Leukocyte Esterase Negative (Negative) Urine RBC 5-10 H (0-2) HPF Urine WBC 3-5 (0-5) HPF Ur Epithelial Cells Moderate (Negative) HPF Urine Crystals Negative (Negative) HPF Urine Bacteria Few (Negative) HPF Urine Casts Negative (Negative) LPF Urine Mucus Trace (Negative) Urine Other Few Renal (Negative) Ur Culture Indicated? No Urine Glucose Negative (Negative) mg/dL Intake and Output - 24 Hour Total 10/14/24 08:03 thru 10/14/24 10:01 Intake Total 10 Balance 10 Weight 57 kg Intake: IV 10 Falls Risk Assessment History of Falls No History 10/14/24 10:03 Contributing Factors Impairments 10/14/24 10:03 Ambulatory Aids Independent 10/14/24 10:03 Tubes/Lines W/no contributing factors 10/14/24 10:03 Gait Evaluation No gait disturbance 10/14/24 10:03 Cognition Cognitive impairment 10/14/24 10:03 Fall Total Score 28 10/14/24 10:03 Level of Risk Moderate Risk 10/14/24 10:03 Problems (Last Reviewed 02/06/22 @ 07:02 by Candice Childers RN) Hypertension (Chronic) Rhabdomyolysis (Acute) Chronic kidney disease (CKD) stage G1/A3, glomerular filtration rate (GFR) equal to or greater than 90 mL/min/1.73 square meter and albuminuria creatinine ratio greater than 300 mg/g (Acute) Insulin dependent diabetes mellitus (Chronic) v v v v v v v v v Sending and/or Receiving Nurses: Please use comment section below to note any information pertinent to the patient hand-off not included above. Information / Comments: pt arrives to 228 via stretcher. VS taken, pt settled Report received from: GAVIN Briceno @[id number]
--- NOTE | 2024-10-14 13:50 | DI.CT_ITS ---
Exam(s) CT HEAD WO EXAM: CT HEAD WO CLINICAL HISTORY: acute encephalopthy. TECHNIQUE: Imaging Protocol: Axial computed tomography images with coronal and sagittal reformatted images were created and reviewed COMPARISON: No exams were available for comparison FINDINGS: There is a right posterior parietal scalp hematoma. There is no skull fracture. However, there is e xtra-axial intracranial hemorrhage along the posterior falx and tentorium. There does not appear to be intra-axial hemorrhage posteriorly. Anteriorly there is a partially calcified large left frontal mass which appears dural-based and assoc iated with significant white matter edema and exhibits significant mass effect on the frontal horn of the lateral ventricle. This mass measures 7 cm AP by 2 cm deep by 4 cm wide. Average density measu rements are 55 HU. There is associated shift of midline structures to the opposite side at the level of the falx, approximately 5-6 mm shift. There is no intraventricular blood. IMPRESSION: Right parietal scalp hematoma. Extra-axial blood posteriorly at this level along the right tentorium cerebelli. Also large area of abnormal hyperdensity in left frontal lobe which is suspicious for ep idural hematoma given its appearance and amount of mass effect. It be unlikely for this to be a an i ncidental meningioma given the amount of mass effect and in the present clinical setting of trauma. There are no skull fractures nor fluid in the paranasal sinuses. Report called by myself to the physician hospitalist 10/14/2024 at 1:50 p.m. RADIATION DOSE DELIVERED: 849.9mGy.cm Total DLP DATA REPOSITORY: All CT scans at this facility are submitted to the National Radiology Data Registry (NRDR) Dose Index Registry (DIR) with the [place] [employer] (ACR). RADIATION OPTIMIZATION: All CT scans at this facility use at least one of these dose optimization te chniques: automated exposure control; mA and/or kV adjustment per patient size (includes targeted exa ms where dose is matched to clinical indication); or iterative reconstruction.
[2024-10-14] MEDS: levETIRAcetam 1,000 MG in Normal Saline 100 ML 400 MG IVPB (15:22)
--- NOTE | 2024-10-14 15:34 | PHACLINREV_ITS ---
Pharmacy Admission Review Admission Clinical Review Admission Pharmacy Review: Rhabdomyolysis (Acute) Chronic kidney disease (CKD) stage G1/A3, glomerular filtration rate (GFR) equal to or greater than 90 mL/min/1.73 square meter and albuminuria creatinine ratio greater than 300 mg/g (Acute) No Known Allergies Allergy (Unverified 10/14/24 08:21) Resuscitation Status Full Code Height 5 ft 2 in Weight 57 kg Comments Comments/Follow Ups: Watch for addition of any QTc prolonging medications Pharmacy Admission Review Renal Dosing Renal Dosing: BUN 20 mg/dL (7-18) H 10/14/24 08:45 Creatinine 1.3 mg/dL (0.55-1.02) H 10/14/24 08:45 Medications needing adjustments: Reviewed (CrCl 29.75 mL/min ) List of meds needing interventions: Current medications are okay Anticoagulation Anticoagulation: Hgb 15.2 g/dL (11.2-15.7) 10/14/24 08:45 Hct 45.5 % (36.0-46.0) 10/14/24 08:45 Plt Count 370 10^3/uL (130-400) 10/14/24 08:45 Creatinine 1.3 mg/dL (0.55-1.02) H 10/14/24 08:45 DVT Prophylaxis: Reviewed Medications: Enoxaparin (30mg daily due to CrCl < 30) Relevant Labs Relevant Labs: Sodium 140 mmol/L (136-145) 10/14/24 08:45 Potassium 3.5 mmol/L (3.5-5.1) 10/14/24 08:45 Chloride 102 mmol/L (98-107) 10/14/24 08:45 Magnesium 1.8 mg/dL (1.8-2.4) 10/14/24 08:45 Electrolytes, C-Reactive P, ESR: Reviewed DM Control DM Control: Glucose 128 mg/dL (74-106) H 10/14/24 08:45 DM Control: Reviewed Insulin Dosing, Diabetic Medication: Has order for glargine 28 units every morning Cardiac Review Cardiac Review: Troponin I 17 ng/L (<or=51) 10/14/24 10:02 List meds needing interventions: Has orders for amlodipine 10mg daily and losartan 100mg daily QTc Review QTc: Reviewed (495 from 5/6/25) List meds needing interventions: Watch for addition of any QTc prolonging medications IV to PO Switch IV Medications: Reviewed Home Meds Home Med List reviewed: Intervened Relevent Home Meds Not ordered & why?: allopurinol (on hold), amlodipine, atorvastatin (on hold), vitamin C, calcium carbonate, Invokana, vitamin D3, CoQ10, Farxiga, magnesium, metformin and Zinc Reached out to provider regarding allopurinol and amlodipine. Per provider holding allopurinol to make sure she doesn't end up with BR[facility]TA. Order was put in for amlodipine Current Meds Current Medication Order Review: Intervened Comments: Order had been put in for atorvastatin. Reached out to provider as patient was admitted for rhabdomyolysis. Provider asked that the order be cance led. Keppra 1000mg IV x 1 for brain bleed Comments Comments/Follow Ups: Watch for addition of any QTc prolonging medications
--- NOTE | 2024-10-14 17:32 | DI.VRAD_ITS ---
PROCEDURE INFORMATION: Exam: MR Head Without Contrast Exam date and time: 10/14/2024 4:13 PM Age: 83 years old Clinical indication: Altered mental status/memory loss; Confusion or disorientation; Per radiologist - L frontal lobe bleed vs. Meningioma - see prior CT head wo from 10/14/24 [id number] TECHNIQUE: Imaging protocol: Magnetic resonance imaging of the head without contrast. COMPARISON: CT HEAD WO 10/14/2024 1:38 PM FINDINGS: Brain: There is a left frontal extra-axial T1 isointense and T2 isointense lesion containing a few scattered areas of calcification that exhibits mass effect on the left frontal lobe resulting in subjacent cerebral edema. There 4 mm rightward midline shift. Right parietal thin acute subdural hematoma extending along the right tentorium cerebelli. Age-related involutional changes and chronic microvascular ischemic disease. No acute infarct. No acute intraparenchymal hemorrhage. Basal cisterns are patent. Cerebral ventricles: Normal. No ventriculomegaly. Bones: Unremarkable. Paranasal sinuses: Normal as visualized. No acute sinusitis. Mastoid air cells: Normal as visualized. No mastoid effusion. Orbital cavities: Unremarkable. Soft tissues: Right parietal scalp hematoma. IMPRESSION: 1. There is a left frontal extra-axial T1 isointense and T2 isointense lesion containing a few scattered areas of calcification that exhibits mass effect on the left frontal lobe resulting in subjacent cerebral edema. There 4 mm rightward midline shift. This is most compatible a meningioma. 2. Right parietal thin acute subdural hematoma extending along the right tentorium cerebelli. Dictated and Authenticated by: Peng Saunders MD. Orderin Gibran Reid MD
[2024-10-15] MEDS: Normal Saline 1,000 ML 75 ML IV ×2 (01:39→15:26)
[2024-10-15 03:41] VITALS: BP 138/60; PULSE 83; RESP 19; TEMP 37; O2SAT 96
[2024-10-15] MEDS: Levothyroxine 75 MCG TAB PO (06:22)
[2024-10-15 07:03] LABS: HGB 13.3 g/dL (11.2-15.7); MCH 29.8 pg (27.0-33.0); MCHC 33.3 % (32.0-36.0); MCV 90 fL (80-95); MPV 9.1 fL (8.0-11.0); Platelet Count 340 10^3/uL (130-400); RBC 4.46 10^6/uL (3.93-5.22); RDW 13.3 % (11.7-14.6); RDW-SD 43.9 fL; WBC 7.71 10^3/uL (4.4-10.8)
[2024-10-15 07:22] LABS: Anion Gap 11.6 mmol/L (3-11); BUN 23 mg/dL (7-18); CO2 26.4 mmol/L (21.0-32.0); CREATININE 1.4 mg/dL (0.55-1.02); Calcium 8.6 mg/dL (8.5-10.1); Chloride 108 mmol/L (98-107); Glucose 110 mg/dL (74-106); Magnesium 1.8 mg/dL (1.8-2.4); Potassium 3.6 mmol/L (3.5-5.1); Sodium 146 mmol/L (136-145)
[2024-10-15 07:45] LABS: Creatine Kinase 1485 U/L (26-192)
[2024-10-15 07:59] VITALS: BP 161/74; PULSE 80; RESP 14; TEMP 36.9; O2SAT 99
[2024-10-15] MEDS: Normal Saline Flush 10 ML SYR IVP ×2 (08:31→21:00)
[2024-10-15] MEDS: Insulin Glargine 300 UNITS/3 ML PEN 28 UNITS SC (08:32)
[2024-10-15] MEDS: amLODIPine 10 MG TAB PO (08:33)
[2024-10-15] MEDS: Enoxaparin 30 MG/0.3 ML SYR SC (08:33)
[2024-10-15] MEDS: Losartan 50 MG TAB 100 MG PO (08:33)
[2024-10-15] MEDS: levETIRAcetam 500 MG TAB 1000 MG PO ×2 (08:34→21:00)
--- NOTE | 2024-10-15 09:24 | INITIAL_ITS ---
Date of service: 10/15/24 Time of Service: 09:24 Care Management Initial Assmt Initial Assessment Reason for Hospitalization: rhabdomyolysis Functional Status/Living Situation Patient Presentation: Erika was sitting up in a chair visiting with her son Magan when CM met with her. She was pleasant in manner but not very talkative. During the conversation it was apparent that she struggled with some memory issues which her son confirmed. He stated that although Erika does quite well most of the time, she definitely has some short term memory loss. This has been going on for a while he shared. Erika lives in an apartment in [facility] with her roommate Lilian, who is also elderly. She has 4 sons, none of whom live locally. Magan lives in [place] and is the closest. She has another son in [place], one in [place], [place] and the 4th is in [place]. 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 She is independent at baseline and does not receive any community services at this time. Erika was admitted following a fall at home. She was found on the floor by her roommate and it is unknown how long she had been there. It appeared she had been incontinent and it is possible she may have had a seizure. According to Magan, during her workup in the ED it was discovered that she has a frontal lobe mass which is likely a meningioma. Magan reported that he was told that may have caused the seizure and may be contributing to some of her memory and cognitive issues. Erika had a PT evaluation today. Their recommendation was for SNF for short term rehab vs Assisted Living. Magan stated that Erika really loves her apartment and likely would not want top leave it. He also acknowledged that he does not feel she is safe at home right now. Both Magan and Erika agreed to have referrals sent to [facility] and [facility] for STR. CM also contacted the [facility] and learned that they do have some openings now and others anticipated in the near future. CM printed off the application from their website and gave it to Magan. He plans to complete it as soon as possible so that option can be explored more thoroughly. Town of Residence: [facility] Resides with: Other (roommate) Significant Other/Family: Out of area (4 sons all live out of state) Natural Supports: friends Employment Status: Retired Instrumental Activities of Daily Living (ADLs): Independent Medications Medication Management: No Issues/Barriers identified Physical Functioning/Mobility Assistive Device: walker, cane Advance Directives Advance Directives: Do you have an Advance Directive: Y 05/09/21 08:11 AD On File at [facility]: N 05/09/21 08:11 Date Asked 10/14/24 10/14/24 08:24 AD Date Reviewed COLST On File at [facility] COLST Date Scanned Code Status Resuscitation Status Full Code Insurance Coverage/Financial Issues Insurance: [facility] Medicare Replacement Care Team Visit Care Team Role Provider Type Smith Judd Primary Care Provider NON-[facility] STAFF PHYSICIAN InPatient Reid Perez Other Providers OTHER GEN[facility] PHYSICIANS SOFTWARE PERFORMANCE ENGINEER Franklin Leary MD Admit Provider [facility] STAFF PHYSICIAN Attending Provider Discharge Potential Discharge Needs: PCP F/U Appt Anticipated Barriers to Discharge: None Identified Patient/Family Education Needs: Review discharge instructions, discuss Ask Me Three Transportation: Private vehicle Plan: Anticipate Erika will be discharged home with new home health services vs transfer to a SNF for rehab, when medically cleared. She will follow up with her PCP and plan of care and transport with family/friend. CM will follow and continue to assess for discharge needs. Social Determinants of Health Screening Social Determinants of health last assessed in clinic: 10/15/24 Will the Patient Participate in the Screening?: Yes Do you worry about having a steady place to live?: yes What is your living situation today?: I have housing today, but am worried about losing it Problems where you live: no known problems In the past 12 months, have you had to go without electric, gas, oil or water in your home?: no 1. Within the past 12 months, we worried whether our food would run out before we got money to buy more.: Never true 2. Within the past 12 months, the food we bought just didn't last and we didn't have money to get more.: Never true Has lack of transportation kept you from medical appointments or from doing things needed for daily living?: no Has anyone in your life made you feel unsafe or unsupported?: no How hard is it for you to pay for the very basics like food, housing, medical care, and heating? Would you say it is:: Not hard at all Do you want help finding or keeping work or a job?: I do not need or want help If for any reason you need help with day-to-day activities such as bathing, preparing meals, shopping, managing finances, etc., do you get the help you need?: I don?t need any help How often do you feel lonely or isolated from those around you?: Never Do you speak a language other than [place]ish at home?: No Does the patient want assistance with any of the above?: No Health Related Social Needs Health related social needs: housing instability, housed, with risk of homelessness (Z59.811) PFSH All Active Problems (Updated 10/14/24 @ 16:09 by Franklin Leary MD) Subdural hematoma (Acute) Seizure (Acute) Meningioma (Acute) Hypertension (Chronic) Rhabdomyolysis (Acute) Serrated adenoma of colon (Acute) Tubular adenoma of colon (Acute) Hyperplastic colon polyp (Acute) Vitamin D deficiency (Acute) Chronic kidney disease (CKD) stage G1/A3, glomerular filtration rate (GFR) equal to or greater than 90 mL/min/1.73 square meter and albuminuria creatinine ratio greater than 300 mg/g (Acute) Heart murmur, systolic (Acute) Screening for colon cancer (Acute) Sleep apnea (Chronic) Insulin dependent diabetes mellitus (Chronic) Medical History (Updated 10/14/24 @ 16:09 by Franklin Leary MD) DJD (degenerative joint disease) Hypothyroidism associated with surgical procedure Hypomagnesemia Prepatellar bursitis Nocturia Parotid cyst Tubulovillous adenoma of colon Pneumonia Back pain 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 Gonzalez 05/27/20 The left parotid cyst seems to be significantly smaller, and was previously aspirated for thin clear liquid. Hyperlipidemia Diabetes mellitus takes Lantus. 2012 HgbA1c 6.8. 2015 HgbA1c 6.5. No end organ damage. Hypothyroidism (acquired) s/p thyroidectomy for ? thryoid CA. On thyroid replacement. Pt's Parathyroid Hormone 03/2016 = 9 (12-77) Essential hypertension Elevated lipids Pain in left hip Surgical History (Updated 02/14/22 @ 08:16 by Pauline No RN) Trigger finger, right index finger DOS: 10/07/18 Trigger Finger release trigger finger 2013 Total replacement of hip (~12/2013) L Total Hip Arthroplasty. Thyroid ? CA. No further Rx required. Nl Ca levels. Pt. reports thyroid was removed Open Carpal Tunnel release hammer toe and carpal tunnel in CT Colonoscopy - MAC (~01/2022) Colonoscopy - IV Sedation 2011 Appendectomy 1994 History of Surgical Procedure a. Hammer toe procedure on her left foot. b. Appendectomy. c. Bilateral carpal tunnel releases, trigger releases, bilateral middle fingers. d. Colonoscopy. Family History Sister Personal history of malignant neoplasm ovarian CA. in 50's Social History Smoking/Tobacco Use Status: Never Smoking risk assessment performed?: Yes Alcohol Intake: current Alcohol Intake frequency: holidays/special occasions only Alcohol type: beer and wine Drug use: Never Substance use type: does not use Household members: children and other Details: D. lives with son and son in law. 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
--- NOTE | 2024-10-15 09:57 | IN_ITS ---
PT Notes Visit Reasons: Rhabdomyolysis Physical Therapy Inpatient Initial Evaluation Date: 10/15/2024 Referring Doctor: Franklin Leary MD PT Orders: PT CONSULT: Eval/Treat Precautions: Fall. Standard. Activity as tolerated. Patient Profile/Admitting Diagnosis: 83-year-old female who presented to the ED on 10/14/2024 due to generalized weakness, fall, and altered mental status initially found by roommate down on the floor. Patient is admitted for management of meningioma confirmed via MRI, rhabdomyolysis, hypomagnesemia, type II DM, and suspected seizure. MPRESSION: from head MRI on 10/14/2024 1. There is a left frontal extra-axial T1 isointense and T2 isointense lesion containing a few scattered areas of calcification that exhibits mass effect on the left frontal lobe resulting in subjacent cerebral edema. There 4 mm rightward midline shift. This is most compatible a meningioma. 2. Right parietal thin acute subdural hematoma extending along the right tentorium cerebelli. PMHX: All Active Problems (Updated 10/14/24 @ 16:09 by Franklin Leary MD) Subdural hematoma (Acute) Seizure (Acute) Meningioma (Acute) Hypertension (Chronic) Rhabdomyolysis (Acute) Serrated adenoma of colon (Acute) Tubular adenoma of colon (Acute) Hyperplastic colon polyp (Acute) Vitamin D deficiency (Acute) Chronic kidney disease (CKD) stage G1/A3, glomerular filtration rate (GFR) equal to or greater than 90 mL/min/1.73 square meter and albuminuria creatinine ratio greater than 300 mg/g (Acute) Heart murmur, systolic (Acute) Screening for colon cancer (Acute) Sleep apnea (Chronic) Insulin dependent diabetes mellitus (Chronic) Medical History (Updated 10/14/24 @ 16:09 by Franklin Leary MD) DJD (degenerative joint disease) Hypothyroidism associated with surgical procedure Hypomagnesemia Prepatellar bursitis Nocturia Parotid cyst Tubulovillous adenoma of colon Pneumonia Back pain 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 Gonzalez 05/27/20 The left parotid cyst seems to be significantly smaller, and was previously aspirated for thin clear liquid. Hyperlipidemia Diabetes mellitus takes Lantus. 2012 HgbA1c 6.8. 2015 HgbA1c 6.5. No end organ damage. Hypothyroidism (acquired) s/p thyroidectomy for ? thryoid CA. On thyroid replacement. Pt's Parathyroid Hormone 03/2016 = 9 (12-77) Essential hypertension Elevated lipids Pain in left hip Surgical History (Updated 02/14/22 @ 08:16 by Pauline No RN) Trigger finger, right index finger DOS: 10/07/18 Trigger Finger release trigger finger 2012 Total replacement of hip (~12/2013) L Total Hip Arthroplasty. Thyroid? CA. No further Rx required. Nl Ca levels. Pt. reports thyroid was removed Open Carpal Tunnel release hammer toe [place] carpal [place] Colonoscopy - MAC (~01/2022) Colonoscopy - IV Sedation 2011 Appendectomy 1994 History of Surgical Procedure a. Hammer toe procedure on her left foot. b. Appendectomy. c. Bilateral carpal tunnel releases, trigger releases, bilateral middle fingers d. Colonoscopy Social History/Home Situation: Lives in an apartment with a roommate. Independent with all aspects of ADLs prior to admission but no longer drives. Equipment Owned/DME: [facility] Subjective: Patient still feels tired, more tired after the walk. Complained of pain in her R ankle. Dnied headche, chest pain, and lightheadedness throughout session. Yosef Carrero stated that there has been beginning confusion previously. Alena said that confusion was much worse this time. Objective: General Observation: Resting on chair with yosef Carrero present in room initially. IV through R antecubital area. Mental Status: Alert and oriented as to person, place, time, and purpose. Able to pay attention, focus, and respond appropriately. Pain: None reported throughout Vital Signs: BP 146/78 mmHg, HR 85 bpm, SaO2 97% deficit ROM: Right Upper Extremity: Shoulder Flexion WFL. Shoulder abduction WFL. Elbow flexion WFL. Wrist flexion WFL. Functional opening and closing of hand WFL. Left Upper Extremity: Shoulder Flexion WFL. Shoulder abduction WFL. Elbow flexion WFL. Wrist flexion WFL. Functional opening and closing of hand WFL. Right Lower Extremity: Hip flexion WFL. Hip abduction WFL. Knee flexion WFL. Ankle dorsiflexion WFL. Ankle plantarflexion WFL. Left Lower Extremity: Hip flexion WFL. Hip abduction WFL. Knee flexion WFL. Ankle dorsiflexion WFL. Ankle plantarflexion WFL. Strength: Right Upper Extremity: Shoulder flexors 4-/5. Shoulder abductors 4-/5. Elbow flexors 4-/5. Elbow extensors 4-/5. [employer] Glazer strong. Left Upper Extremity: Shoulder flexors 4-/5. Shoulder abductors 4-/5. Elbow flexors 4-/5. Elbow extensors 4-/5. [employer] Glazer strong. Right Lower Extremity: Hip flexors 4-/5. Hip abductors 4-/5. Knee flexors 4/5. Knee extensors 4-/5. Ankle dorsiflexors 4-/5. Ankle plantarflexors 4-/5. Left Lower Extremity: Hip flexors 4-/5. Hip abductors 4-/5. Knee flexors 4/5. Knee extensors 4-/5. Ankle dorsiflexors 4-/5. Ankle plantarflexors 4-/5. Bed Mobility/Transfers: Minimal cueing provided for use of B hands as needed for support, movement sequence, AD management, and posture to reduce fall risk and minimize pain report Sit to stand with minimal assist using FWW Stand to sit with minimal assist using FWW Bed to reclining chair minimal assist using FWW Reclining chair to bed minimal assist using FWW Gait: Covered a distance of 100 feet and another 150 feet using a front-wheeled walker with minimal assist and IV pole management by PT. Mild antalgic gait seen due to pain in R foot.. Step height and length asymmetric but no loss of balance. Tess slowed. Directional changes looked unstable with cueing provided for safety. Balance: Static Sitting: Normal Dynamic Sitting: Normal Static Standing: Fair Dynamic Standing: Fair Special Tests: Mobility Limitations Standardized Measure [facility] AM-PAC 6 clicks Basic Mobility Inpatient Short Form: Raw Score: 18 [facility] Score: 47%% deficit 4-Stage balance Test: Feet together unable Semi-tandem deferred ful tnadem deferred One-legged stance deferrred Informed Consent/Education: Patient was instructed in purpose of PT consult and plan of care. Agreeable to proceed with established PT POC to achieve personal goals. Assessment: Patient demonstrated impaired safety awareness and limited ability for sound judgment at this time that although she was able to follow single-step commands and tolerated level surface ambulation, her ability to thrive at home safely is highly questionable. She would benefit from a supervised setting in a SNF vs an assisted living facility. R ankle with pain and minimal swelling which caused donning of the R shoe more challenging and her walking pattern antalgic. Patient presents with clinical signs and symptoms consistent with current/admitting diagnoses that have resulted to mobility limitations, gait instability, generalized weakness, and overall ADL decline as demonstrated by the following impairment level findings: 1. Decreased strength to B UE/LE major muscle groups 2. Impaired sitting/standing balance 3. Impaired activity tolerance 4. Pain in R foot 5. Impaired cognition Impairments are contributing to the following functional limitations: 1. Decline in bed mobility skills 2. Decline in transfer skills 3. Difficulty with ambulation without assistive device and physical assistance 4. Increased completion time for mobility ADL performance 5. Increased risk for falls 6. Difficulty with managing steps alone safely Patient is assessed as a 65172 moderate complexity based on the following: History: 83-year-old female with past medical history as indicated above Examination: Demonstrable impairment in strength, balance, and mobility level with underlying impairments and functional limitations as exhibited above as well as deficit score of 47% utilizing the [facility] Mobility Inpatient Short Form Presentation: Evolving Decision Makin moderate complexity Goals: Goals X1 week 1. Supine-Sit independent 2. Sit-Supine independent 3. Sit-Stand independent 4. Stand-Sit independent with SPC 5. Bed-Chair independent with SPC 6. Chair-Bed independent with SPC 7. Independent gait on level surface with use of with SPC for at least 300 feet without report of pain nor dyspnea 8. Good static and dynamic standing balance/tolerance Plan of Care/Treatment Plan: 1-2x/day, 7 days/week x 1 week. Plan of care has been reviewed with the EXHIBITION SPECIALIST providing the service under Physical Therapy direction. Initiate Physical Therapy intervention for pain management as needed, strengthening, bed mobility, transfers, gait, stairs, balance training, and use of assistive device. DISCHARGE RECOMMENDATIONS: [] Home with no services [] [] Home with services [specify] [] Home with outpatient PT [] [] SNF for continued rehabilitation [] [] [facility] [] [] SNF versus LTC based on ability to participate and progress [] [X] Short-term SNF vs [facility]PC TREATMENT CODE/TIME: 98951 x 20 minutes for 1 unit, 80845 x 27 minutes for 2 units (9:57-10:44). Thank you for the opportunity to participate in the care of this patient. Marianela Saldaña PT, DPT, CLT [facility], [place]
--- NOTE | 2024-10-15 10:59 | PGE_ITS ---
Date of Service Date of service: 10/15/24 Time of Service: 10:59 Assessment and Plan Assessment and plan (1) Meningioma: Status: Acute Assessment and plan: - Head CT after admission to the hospital showed concerns for left frontal lobe epidural hematoma - Discussion with [facility] neurosurgery; frontal lobe area of question has surrounding calcifications while there is some surrounding edema and minimal mass effect there is no midline shift, this is most likely a meningioma especially given patient's GCS of 14 and otherwise normal exam, though patient does continue to display some short and long-term memory loss which is different from her baseline - [facility] neurosurgery recommended MRI which confirms presence of meningioma - [facility] neurosurgery will make outpatient appointment for follow-up with the patient (2) Subdural hematoma: Status: Acute Assessment and plan: - Very small posterior subdural hematoma in the area of the patient's posterior scalp hematoma - Discussed with [facility] neurosurgery, did not have any additional recommendations regarding small subdural at this time (3) Seizure: Status: Acute Assessment and plan: - Given likely meningioma as noted above, this is likely because of patient's fall, as meningioma may have caused seizure, and subsequent mild memory loss/confusion may be secondary to postconcussive syndrome - Started 1 g Keppra IV twice daily as recommended by [facility] neurosurgery -MRI results as noted above (4) Rhabdomyolysis: Status: Acute Assessment and plan: - Patient found down by roommate, unknown amount of time - Found to have a CK of 12,000 consistent with rhabdomyolysis - Patient is known to have CKD though creatinine appears to be at baseline at this time - Status post 1 L normal saline in the emergency department - Will continue normal saline 75 mL an hour - Follow-up a.m. CK and BMP (5) Chronic kidney disease (CKD) stage G1/A3, glomerular filtration rate (GFR) equal to or greater than 90 mL/min/1.73 square meter and albuminuria creatinine ratio greater than 300 mg/g: Status: Acute Assessment and plan: -Appears to be at baseline with creatinine ranging between 1.3 and 1.4; 1.3 on admission - Follow-up a.m. BMP (6) Insulin dependent diabetes mellitus: Status: Chronic Assessment and plan: - Continue home insulin regimen -SSI, CCD (7) Hypertension: Status: Chronic Assessment and plan: -hold home antihypertensives Subjective Subjective Interval history since last seen: Patient states that she is doing well today though continues to appear more confused than baseline. Discussed plan with patient's son who understands recommendation for subacute rehab placement at discharge. Exam Narrative Exam Narrative: Well-appearing older female laying in bed in no acute distress, ANO x 4, though continues to have signs of some intermittent short-term and long-term memory loss which is different from her baseline, heart regular rate rhythm, lungs good auscultation bilaterally, abdomen soft, nontender, nondistended, moving all 4 extremities spontaneously, PERRLA, cranial nerves II through XII intact, normal smell sensation and strength in bilateral upper and lower extremities and able to follow commands Objective Last Vital Signs Temp 98.4 F 10/15/24 07:59 Pulse 80 10/15/24 07:59 Resp 14 10/15/24 07:59 BP 161/74 H 10/15/24 07:59 Pulse Ox 99 10/15/24 07:59 Laboratory Results - last 24 hr 10/14/24 10/15/24 11:10 06:30 WBC 7.71 RBC 4.46 Hgb 13.3 Hct 40.0 MCV 90 MCH 29.8 MCHC 33.3 RDW 13.3 Plt Count 340 MPV 9.1 Sodium 146 H Potassium 3.6 Chloride 108 H Carbon Dioxide 26.4 Anion Gap 11.6 H BUN 23 H Creatinine 1.4 H Est GFR (CKD-EPI 2020) 37.80 Glucose 110 H Calcium 8.6 Magnesium 1.8 Creatine Kinase 1485 H Urine Color Yellow Urine Clarity Clear Urine pH 7.0 Ur Specific [place] 1.010 Urine Protein 100 H Urine Ketones Negative Urine Blood Small H Urine Nitrite Negative Urine Bilirubin Negative Urine Urobilinogen 0.2 Ur Leukocyte Esterase Negative Urine RBC 5-10 H Urine WBC 3-5 Ur Epithelial Cells Moderate Urine Crystals Negative Urine Bacteria Few Urine Casts Negative Urine Mucus Trace Urine Other Few Renal Ur Culture Indicated? No Urine Glucose Negative Time Spent with Patient Time Spent with Patient: >50 minutes Time was spent: preparing to see the patient(eg.review tests), obtaining and/or reviewing separately otained hiistory, ordering medications,tests, procedures, referring, communicating with other health nursing care partner, indepentently interpreting results, counseling the patient and care coordination
[2024-10-15 11:44] VITALS: BP 143/70; PULSE 90; RESP 14; TEMP 36.9; O2SAT 95
[2024-10-15 15:15] VITALS: BP 123/59; PULSE 87; RESP 15; TEMP 37; O2SAT 98
--- NOTE | 2024-10-15 17:10 | CHAPLAIN ---
Eileen was sitting up in the chair when I visited. Her son was with her. He said she remains confused. She was pleasant and engaged in a conversation. Eileen is [employer] and Fr. Santos from [place] visited this afternoon.
[2024-10-15 20:05] VITALS: BP 162/73; PULSE 93; RESP 18; TEMP 36.3; O2SAT 94
[2024-10-15 23:13] VITALS: BP 146/83; PULSE 95; RESP 18; TEMP 37; O2SAT 96
[2024-10-16] VITALS (8 sets, daily range): BP systolic 147–169; BP diastolic 69–79; PULSE 84–111; RESP 16–24; TEMP 36.1–39.1; O2SAT 95–98
--- NOTE | 2024-10-16 | DI.CT_ITS ---
Exam(s) CT LOWER EXTREMITY RT WO EXAM: CT LOWER EXTREMITY RT WO CLINICAL HISTORY: ? fx posterior malleolus posterior process ezequiel. TECHNIQUE: Imaging Protocol: Axial computed tomography images with coronal and sagittal reformatted images were created and reviewed. CONTRAST MATERIAL: Noncontrast COMPARISON: CR XR KNEE RT 3V AP,LAT,JOS from 10/29/2023 CR XR ANKLE RT COMPLETE from 10/16/2024 FINDINGS: Bones: There are multiple calcifications noted between the posterior malleolus and talus. No discret e fracture is identified. Finding is likely represent chondrocalcinosis. There is a tiny sliver of bone which appears to the fractured from the posterior process of the talus as seen on plain films. There is a tiny bony fragment at the inferolateral border of the talus which could represent a small fracture fragment versus ligamentous calcification. Prominent heel spurs. No lytic or sclerotic lesions are identified. Joints: Mild tibiotalar and fibulotalar joint space narrowing. A joint effusion is seen. There are multifocal areas of amorphous calcifications within the joint spaces, greatest between the posterior lateral tibiotalar joint and tibial talar joint. The findings are consistent with chondrocalcinosis . Chondrocalcinosis also noted in the knee. Soft Tissues: Diffuse edema, greatest around the malleoli. Vascular calcifications. Mild calcifica tions seen within the tibialis posterior and peroneal tendons. IMPRESSION: tiny fracture fragment at the posterior process of the talus. No definite posterior malleolar fracture is identified. There are multiple jet adjacent calcifications which likely represent chondrocalcinosis. Fractures of the adjacent talus and posterior malleolus are not entirely excluded. Chondrocalcinosis noted at the other locations the ankle as well as in the knee. RADIATION DOSE DELIVERED: Total DLP DATA REPOSITORY: All CT scans at this facility are submitted to the National Radiology Data Registry (NRDR) Dose Index Registry (DIR) with the [employer] (A[employer]). RADIATION OPTIMIZATION: All CT scans at this facility use at least one of these dose optimization te chniques: automated exposure control; mA and/or kV adjustment per patient size (includes targeted exa ms where dose is matched to clinical indication); or iterative reconstruction.
[2024-10-16] MEDS: Levothyroxine 75 MCG TAB PO (05:44)
[2024-10-16] MEDS: Losartan 50 MG TAB 100 MG PO (08:30)
[2024-10-16] MEDS: Insulin Glargine 300 UNITS/3 ML PEN 28 UNITS SC (08:30)
[2024-10-16] MEDS: amLODIPine 10 MG TAB PO (08:30)
[2024-10-16] MEDS: levETIRAcetam 500 MG TAB 1000 MG PO ×2 (08:30→19:33)
[2024-10-16] MEDS: Normal Saline Flush 10 ML SYR IVP ×2 (08:31→19:33)
[2024-10-16] MEDS: Enoxaparin 30 MG/0.3 ML SYR SC (08:32)
[2024-10-16] MEDS: Normal Saline 1,000 ML 75 ML IV (09:23)
--- NOTE | 2024-10-16 09:41 | PDOC.CMPRO ---
Date of service: 10/16/24 Time of Service: 09:41 Care Management Progress Note Progress Note Text Progress Note Text: Erika was sitting up in a chair visiting with her son Magan when CM met with her. She appeared to be in good spirits and engaged well with CM. Referrals were sent to [facility] and [facility] yesterday for short term rehab. No determination has been received from the [facility] however a tentative bed offer was received from [facility], pending insurance authorization. They did have a question about further investigations and possible treatment for the newly found meningioma. CM discussed this with Magan who stated that he is interested in having the initial appointment with Neurosurgery at [facility], however any decisions regarding additional testing or treatment will be postponed until after discharge from rehab. CM also assisted Magan with the completion of an application for [facility] for possible post-rehab placement. Discharge Potential Discharge Needs: Other (possibly SNF) Anticipated Barriers to Discharge: None Identified Patient/Family Education Needs: Review discharge instructions, discuss Ask Me Three Transportation: Other (to be determined by disposition) Plan: Erika was admitted with rhabdomyolysis and AMS. She may benefit from short term rehab in a SNF before returning home or transitioning to a different level of care such as assisted living. Referrals were sent to [facility] and [facility] at her son Magan's request. CM will follow and continue to support discharge planning. Social Determinants of Health Screening Social Determinants of health last assessed in clinic: 10/16/24 Will the Patient Participate in the Screening?: Yes Do you worry about having a steady place to live?: yes What is your living situation today?: I have housing today, but am worried about losing it Problems where you live: no known problems In the past 12 months, have you had to go without electric, gas, oil or water in your home?: no 1. Within the past 12 months, we worried whether our food would run out before we got money to buy more.: Never true 2. Within the past 12 months, the food we bought just didn't last and we didn't have money to get more.: Never true Has lack of transportation kept you from medical appointments or from doing things needed for daily living?: no Has anyone in your life made you feel unsafe or unsupported?: no How hard is it for you to pay for the very basics like food, housing, medical care, and heating? Would you say it is:: Not hard at all Do you want help finding or keeping work or a job?: I do not need or want help If for any reason you need help with day-to-day activities such as bathing, preparing meals, shopping, managing finances, etc., do you get the help you need?: I don?t need any help How often do you feel lonely or isolated from those around you?: Never Do you speak a language other than Bulgarian at home?: No Does the patient want assistance with any of the above?: No Health Related Social Needs Health related social needs: housing instability, housed, with risk of homelessness (Z59.011)
--- NOTE | 2024-10-16 11:15 | PT.INTREAT ---
PT Notes Visit Reasons: Rhabdomyolysis Physical Therapy Inpatient Treatment Note Date: 10/16/2024 Precautions: Fall. Standard. Minimize weight bearing on R foot during essential transfers only until otherwise cleared by hospitalist. Subjective: Complained when her R ankle was touched for examination today. Feels that her ankle hurts. Okay to move from edge of bed to the chair for right now. Objective: General Observation: Resting in bed, partially asleep, answered when name was called Mental Status: ERRATUM: patient was disoriented as to place, date, and time as of day of evaluation: she thought that it was still August 17, 1979 and believed that she was in [place]. Pain: Pain in R foot as above Vital Signs: Closely monitored by nursing staff Bed Mobility/Transfers: Minimal cueing provided for use of B hands as needed for support, movement sequence, AD management, and posture to reduce fall risk and minimize pain report Sit to stand with minimal assist using FWW Stand to sit with minimal assist using FWW Bed to reclining chair minimal assist using FWW Reclining chair to bed minimal assist using FWW Gait: Deferred any further walking today until examination and testing is done on R foot to rule out fracture. Balance: Static Sitting: Normal Dynamic Sitting: Normal Static Standing: Fair Dynamic Standing: Fair Assessment: Patient with point tenderness in malleolar zone and posterior ankle mortise upon palpation and so further walking activity was deferred and hospitalist was immediately updated. Patient was assisted to the bedside chair in preparation for lunch with instruction not to put much weight on the R side. Patient demonstrated impaired safety awareness and limited ability for sound judgment at this time that although she was able to follow single-step commands and tolerated level surface ambulation, her ability to thrive at home safely is highly questionable. She would benefit from a supervised setting in a SNF vs an assisted living facility. Plan of Care/Treatment Plan: 1-2x/day, 7 days/week x 1 week. Plan of care has been reviewed with the DROP PRESS HAND providing the service under Physical Therapy direction. Initiate Physical Therapy intervention for pain management as needed, strengthening, bed mobility, transfers, gait, stairs, balance training, and use of assistive device. DISCHARGE RECOMMENDATIONS: [] Home with no services [] [] Home with services [specify] [] Home with outpatient PT [] [] SNF for continued rehabilitation [] [] [facility] [] [] SNF versus LTC based on ability to participate and progress [] [X] Short-term SNF vs SENIOR CARE TREATMENT CODE/TIME: 74291 x 18 minutes for 1 units (11:15-12:03).
--- NOTE | 2024-10-16 11:57 | PGE_ITS ---
Date of Service Date of service: 10/16/24 Time of Service: 11:57 Assessment and Plan Assessment and plan (1) Meningioma: Status: Acute Assessment and plan: - Head CT after admission to the hospital showed concerns for left frontal lobe epidural hematoma - Discussion with [facility] [place]; frontal lobe area of question has surrounding calcifications while there is some surrounding edema and minimal mass effect there is no midline shift, this is most likely a meningioma especially given patient's GCS of 14 and otherwise normal exam, though patient does continue to display some short and long-term memory loss which is different from her baseline - [facility] [place] recommended MRI which confirms presence of meningioma - [facility] [place] will make outpatient appointment for follow-up with the patient (2) Subdural hematoma: Status: Acute Assessment and plan: - Very small posterior subdural hematoma in the area of the patient's posterior scalp hematoma - Discussed with [facility] [place], did not have any additional recommendations regarding small subdural at this time (3) Seizure: Status: Acute Assessment and plan: - Given likely meningioma as noted above, this is likely because of patient's fall, as meningioma may have caused seizure, and subsequent mild memory loss/confusion may be secondary to postconcussive syndrome - Started 1 g Keppra IV twice daily as recommended by [facility] [place] -MRI results as noted above (4) Rhabdomyolysis: Status: Acute Assessment and plan: - Patient found down by roommate, unknown amount of time - Found to have a CK of 12,000 consistent with rhabdomyolysis - Patient is known to have CKD though creatinine appears to be at baseline at this time - Status post 1 L normal saline in the emergency department - Will continue normal saline 75 mL an hour - Follow-up a.m. CK and BMP (5) Chronic kidney disease (CKD) stage G1/A3, glomerular filtration rate (GFR) equal to or greater than 90 mL/min/1.73 square meter and albuminuria creatinine ratio greater than 300 mg/g: Status: Acute Assessment and plan: -Appears to be at baseline with creatinine ranging between 1.3 and 1.4; 1.3 on admission - Follow-up a.m. BMP (6) Insulin dependent diabetes mellitus: Status: Chronic Assessment and plan: - Continue home insulin regimen -SSI, CCD (7) Hypertension: Status: Chronic Assessment and plan: -hold home antihypertensives Subjective Subjective Interval history since last seen: Patient states that she is doing well today and understands that we are investigating her right ankle pain. Objective Last Vital Signs Temp 97.2 F L 10/16/24 07:21 Pulse 87 10/16/24 07:21 Resp 16 10/16/24 07:21 BP 157/74 H 10/16/24 07:21 Pulse Ox 96 10/16/24 07:21 Time Spent with Patient Time Spent with Patient: >50 minutes Time was spent: preparing to see the patient(eg.review tests), obtaining and/or reviewing separately otained hiistory, ordering medications,tests, procedures, referring, communicating with other health vocational childcare teacher, indepentently interpreting results, counseling the patient and care coordination
--- NOTE | 2024-10-16 12:27 | DI.RAD_ITS ---
Exam(s) XR ANKLE RT COMPLETE EXAM: XR ANKLE RT COMPLETE CLINICAL HISTORY: right ankle swelling/pain. TECHNIQUE: 2D digital imaging was performed. COMPARISON: No exams were available for comparison FINDINGS: 3 views On the lateral view there is suggestion of a possible subtle nondisplaced fracture of the posterior m alleolus as well as a possible subtle fracture of the posterior talar process medial and lateral mall eoli. Tack. There is no widening the ankle mortise. Talar dome appears unremarkable. There is a moderate size inferior calcaneal spur. There is also an enthesophyte at the Achilles inse rtion site on the posterior calcaneus. IMPRESSION: Possible subtle fracture of posterior malleolus and posterior process of the talus. Recommend follow -up CT scan DATA REPOSITORY: RADIATION DOSE DELIVERED:
[2024-10-16] MEDS: Acetaminophen 325 MG TAB PO (19:32)
[2024-10-16] MEDS: Docusate Sodium 100 MG CAP PO (19:33)
--- NOTE | 2024-10-17 | DI.RAD_ITS ---
Exam(s) XR ANKLE LT COMPLETE EXAM: XR ANKLE LT COMPLETE CLINICAL HISTORY: left ankle swelling, pain TECHNIQUE: 2D digital imaging was performed. Three views. COMPARISON: No exams were available for comparison FINDINGS: BONES: No acute fracture is present. There is a small sliver of bone at the posterior process of the calcaneus, identical to the contralateral ankle therefore not likely to represent a fracture. No christal ny destructive lesion is seen. Heel spurs. Calcification in the plantar fascia. JOINTS:The ankle mortise is normally aligned. No significant joint space narrowing. Calcifications a re noted on the lateral view at the posterior tibiotalar joint which could represent chondrocalcinosi s as was seen in the contralateral ankle on the prior CT. SOFT TISSUE: Swelling around the ankle and foot. Vascular calcifications. IMPRESSION: Soft tissue swelling. No acute bony abnormality. DATA REPOSITORY: RADIATION DOSE DELIVERED:
[2024-10-17] MEDS: Normal Saline 1,000 ML 75 ML IV (02:49)
[2024-10-17 02:56] VITALS: BP 173/79; PULSE 92; RESP 18; TEMP 36.9; O2SAT 97
[2024-10-17] MEDS: Levothyroxine 75 MCG TAB PO (05:44)
[2024-10-17 07:36] VITALS: BP 159/65; PULSE 80; RESP 16; TEMP 36.7; O2SAT 95
[2024-10-17] MEDS: levETIRAcetam 500 MG TAB 1000 MG PO ×2 (08:17→19:59)
[2024-10-17] MEDS: Losartan 50 MG TAB 100 MG PO (08:17)
[2024-10-17] MEDS: Enoxaparin 30 MG/0.3 ML SYR SC (08:17)
[2024-10-17] MEDS: amLODIPine 10 MG TAB PO (08:18)
--- NOTE | 2024-10-17 08:45 | PDOC.CMPRO ---
Date of service: 10/17/24 Time of Service: 08:45 Care Management Progress Note Progress Note Text Progress Note Text: Jami Cheek was sitting up in bed when CM met with her. Her son Magan was present and joined din the conversation. Erika has a tentative bed offer at [facility] and is waiting for the insurance authorization. CM has reached out to the Freight Claim Investigator several times today but no definitive answer has been received. The facility is exploring the possibility of a weekend (Sunday) admission if the PA is approved and sent later in the day. Clinically, Erika seems to be doing better. She was found to have a small fracture on her right foot/heel and is now wearing a CAM boot and can bear weight as tolerated. She remains oriented only to self and Magan confirms this is different than her baseline. Hemodynamically, she is stable and will be ready for discharge should a bed offer be received. Discharge Potential Discharge Needs: Other (hopefully Erika will be able to transfer to a SNF for short term rehab) Anticipated Barriers to Discharge: Bed availability Patient/Family Education Needs: Review discharge instructions, discuss Ask Me Three Transportation: RCT Plan: Erika will likely transfer to a SNF for short term rehab prior to returning home. Referrals were sent and a tentative bed offer, pending insurance authorization, was received from [facility]. She will follow up with the facility providers and plan of care and transport either with her son or via RCT. CM will follow and continue to support discharge planning. Social Determinants of Health Screening Social Determinants of health last assessed in clinic: 10/17/24 Will the Patient Participate in the Screening?: Yes Do you worry about having a steady place to live?: yes What is your living situation today?: I have housing today, but am worried about losing it Problems where you live: no known problems In the past 12 months, have you had to go without electric, gas, oil or water in your home?: no 1. Within the past 12 months, we worried whether our food would run out before we got money to buy more.: Never true 2. Within the past 12 months, the food we bought just didn't last and we didn't have money to get more.: Never true Has lack of transportation kept you from medical appointments or from doing things needed for daily living?: no Has anyone in your life made you feel unsafe or unsupported?: no How hard is it for you to pay for the very basics like food, housing, medical care, and heating? Would you say it is:: Not hard at all Do you want help finding or keeping work or a job?: I do not need or want help If for any reason you need help with day-to-day activities such as bathing, preparing meals, shopping, managing finances, etc., do you get the help you need?: I don?t need any help How often do you feel lonely or isolated from those around you?: Never Do you speak a language other than Yakut at home?: No Does the patient want assistance with any of the above?: No Health Related Social Needs Health related social needs: housing instability, housed, with risk of homelessness (Z59.631)
[2024-10-17] MEDS: Insulin Glargine 300 UNITS/3 ML PEN 28 UNITS SC (09:03)
--- NOTE | 2024-10-17 10:00 | PT.INTREAT ---
PT Notes Visit Reasons: Rhabdomyolysis Physical Therapy Inpatient Treatment Note Date: 10/17/2024 Precautions: Fall. Standard. WBAT with right CAM BOOT Subjective: Pt states she is feeling better but her ankle still hurts. Objective: General Observation: presented awake and alert seated in chair with BLE elevated. Son present. Mental Status: Alert oriented to person. Remains disoriented to place and time. Pain: B ankles Medium Vital Signs: Closely monitored by nursing staff [id number]: Orthotic fitting: Pt assessed and fitted with right Air MaxTrax 2.0 boot size Medium. Pt initial education for donning and adjustment to pump air to provide support and how to release air to remove as needed. Pt and son will benefit from further training with boot to ensure proper application. Bed Mobility/Transfers: continuous cueing provided for use of B hands as needed for support, movement sequence, AD management, and posture to reduce fall risk and minimize pain report Sit to stand with minimal assist using FWW x 3 trials Stand to sit with minimal assist using FWW x 3 trials surface to surface minimal assist using FWW x2 trials Gait: Facilitation of ambulation with FWW with Right CAM BOOT WBAT. Min A intermittent instability d/t rocker bottom of boot. pt requires assistance for FWW management to keep FWW further away from her body to provide wider MARGRET. Balance: Static Sitting: Normal Dynamic Sitting: Normal Static Standing: Fair Dynamic Standing: Fair- Assessment: Upon review of RLE CT performed on 10/16/24 results as follows: IMPRESSION: tiny fracture fragment at the posterior process of the talus. No definite posterior malleolar fracture is identified. There are multiple jet adjacent calcifications which likely represent chondrocalcinosis. Fractures of the adjacent talus and posterior malleolus are not entirely excluded. Chondrocalcinosis noted at the other locations the ankle as well as in the knee. ----DR Leary notified PT of consultation with Ortho who is recommending RLE WBAT with BOOT and Ortho follow up. Patient continues with point tenderness in malleolar zone and posterior Right ankle mortise upon palpation. Pt reported reduction in pain and tenderness after fitting for Maxtrax2.0 air boot. The rocker bottom increased instability during standing tasks with intermittent posterior LOB. Pt noted pain in left ankle as well while ambulating however no swelling noted and full ROM present. Pt able to follow instructions however poor recall within session of safe hand placement and sequencing with FWW during ambulation and transfers surface to surfaces. Patient demonstrated impaired safety awareness and limited ability for sound judgment at this time her ability to thrive at home safely is highly questionable. She would continue to benefit from a supervised setting in a SNF vs an assisted living facility. Plan of Care/Treatment Plan: 1-2x/day, 7 days/week x 1 week. Plan of care has been reviewed with the CUSTOMER SUCCESS MANAGER providing the service under Physical Therapy direction. Initiate Physical Therapy intervention for pain management as needed, strengthening, bed mobility, transfers, gait, stairs, balance training, and use of assistive device. DISCHARGE RECOMMENDATIONS: [] Home with no services [] [] Home with services [specify] [] Home with outpatient PT [] [] SNF for continued rehabilitation [] [] Lead Embedded Software Engineer Care [] [] SNF versus LTC based on ability to participate and progress [] [X] Short-term SNF vs [facility] T[facility]ATMENT CODE/TIME: 85604, 06347/ [id number]
[2024-10-17 11:03] LABS: HCT 37.7 % (36.0-46.0); HGB 12.5 g/dL (11.2-15.7); MCH 29.8 pg (27.0-33.0); MCHC 33.2 % (32.0-36.0); MCV 90 fL (80-95); Platelet Count 318 10^3/uL (130-400); RDW 13.4 % (11.7-14.6); RDW-SD 44.3 fL; WBC 9.24 10^3/uL (4.4-10.8)
[2024-10-17 11:24] LABS: Anion Gap 9.3 mmol/L (3-11); BUN 16 mg/dL (7-18); CO2 24.7 mmol/L (21.0-32.0); CREATININE 1.1 mg/dL (0.55-1.02); Calcium 8.3 mg/dL (8.5-10.1); Chloride 104 mmol/L (98-107); Estimated GFR 50.48 (mL/min/1.73m2); Glucose 172 mg/dL (74-106); Potassium 3.4 mmol/L (3.5-5.1); Sodium 138 mmol/L (136-145)
[2024-10-17 11:44] VITALS: BP 145/70; PULSE 96; RESP 16; TEMP 37.4; O2SAT 97
--- NOTE | 2024-10-17 14:43 | PTTR_ITS ---
PT Notes Visit Reasons: Rhabdomyolysis Physical Therapy Inpatient Treatment Note Date: 10/17/2024 Precautions: Fall. Standard. Per Dr. Leary as of 10/17/2024: WBAT on the R LE with fracture boot/CAM boot on R and post-op shoe on the L foot. Fracture boot on R and post- op shoe on L when OOB. Subjective: New onset pain in L foot as well the R foot at rest and with weight bearing, somewhat alleviated by using post op shoe on the L. Needed to lie down in bed after a short walk and seated exercise with PT. Objective: General Observation: Resting on chair. Son Magan present in room throughout session. L foot now also swollen with patient unable to weak slip on shoe today. Mental Status: Oriented only as to person. remains disoriented as to date, time, and place. Pain: Pain in feet as above Vital Signs: Closely monitored by nursing staff Bed Mobility/Transfers: Minimal cueing provided for use of B hands as needed for support, movement sequence, AD management, and posture to reduce fall risk and minimize pain report Sit to stand with minimal assist using FWW Stand to sit with minimal assist using FWW Bed to reclining chair minimal assist using FWW Reclining chair to bed minimal assist using FWW Gait: Tolerated short distance ambulation of about 50 feet using FWW with step-to gait pattern using fracture boot on R and post op shoe on the L side with report of not only pain in the R but also in the L foot. Pain in L foot minimized by use of post op shoe. Balance: Static Sitting: Normal Dynamic Sitting: Normal Static Standing: Fair Dynamic Standing: Fair Assessment: New onset L ankle pain and swelling noted with pain alleviated using post op shoe on the L. Post op shoe on L side originally was used to equalize leg length variance resulting from use of thick-soled CAM boot on the R but has also helped with pain report in L foot. Strongly recommending use of B foot devices when patient is OOB to ensure optimal stability, pain relief, and safety of all transfer nd ambulation tasks. Nurses Ervin and Mo were updated of new symptoms, WB and footwear recommendations. Plan of Care/Treatment Plan: 1-2x/day, 7 days/week x 1 week. Plan of care has been reviewed with the AUTO SERVICE ADVISOR providing the service under Physical Therapy direction. Initiate Physical Therapy intervention for pain management as needed, strengthening, bed mobility, transfers, gait, stairs, balance training, and use of assistive device. THERA EX: Instructions given for seated exercises below before assisting patient to lie down in bed: Seated marches x 10 LAQ x 10 Seated clam shell x 10 DISCHARGE RECOMMENDATIONS: [] Home with no services [] [] Home with services [specify] [] Home with outpatient PT [] [] SNF for continued rehabilitation [] [] [facility] [] [] SNF versus LTC based on ability to participate and progress [] [X] Short-term SNF vs [facility] T[facility]AT[facility] CODE/TIME: 49310 x 44 minutes for 3 units (13:26-14:21).
--- NOTE | 2024-10-17 16:10 | W.PM.PROGNOT ---
Date of Service Date of service: 10/17/24 Time of Service: 16:10 Assessment and Plan Assessment and plan (1) Meningioma: Status: Acute Assessment and plan: - Head CT after admission to the hospital showed concerns for left frontal lobe epidural hematoma - Discussion with [facility] neurosurgery; frontal lobe area of question has surrounding calcifications while there is some surrounding edema and minimal mass effect there is no midline shift, this is most likely a meningioma especially given patient's GCS of 14 and otherwise normal exam, though patient does continue to display some short and long-term memory loss which is different from her baseline - [facility] neurosurgery recommended MRI which confirms presence of meningioma - [facility] neurosurgery will make outpatient appointment for follow-up with the patient -patient accepted to [facility] tomorrow, Wednesday 10/18 (2) Subdural hematoma: Status: Acute Assessment and plan: - Very small posterior subdural hematoma in the area of the patient's posterior scalp hematoma - Discussed with [facility] neurosurgery, did not have any additional recommendations regarding small subdural at this time (3) Seizure: Status: Acute Assessment and plan: - Given likely meningioma as noted above, this is likely because of patient's fall, as meningioma may have caused seizure, and subsequent mild memory loss/confusion may be secondary to postconcussive syndrome - Started 1 g Keppra IV twice daily as recommended by [facility] neurosurgery -MRI results as noted above (4) Rhabdomyolysis: Status: Acute Assessment and plan: - Patient found down by roommate, unknown amount of time - Found to have a CK of 12,000 consistent with rhabdomyolysis - Patient is known to have CKD though creatinine appears to be at baseline at this time - Status post 1 L normal saline in the emergency department - Will continue normal saline 75 mL an hour - Follow-up a.m. CK and BMP (5) Chronic kidney disease (CKD) stage G1/A3, glomerular filtration rate (GFR) equal to or greater than 90 mL/min/1.73 square meter and albuminuria creatinine ratio greater than 300 mg/g: Status: Acute Assessment and plan: -Appears to be at baseline with creatinine ranging between 1.3 and 1.4; 1.3 on admission - Follow-up a.m. BMP (6) Insulin dependent diabetes mellitus: Status: Chronic Assessment and plan: - Continue home insulin regimen -SSI, CCD (7) Hypertension: Status: Chronic Assessment and plan: -hold home antihypertensives (8) Fracture of posterior process of right talus: Status: Acute Assessment and plan: -patiebt begin to complain or worsening pain with ambulation -xray inconclusive, CT showed small right poterior talus fracture and extensive chondrocalcinosis -discussed with Ortho; non-operative, cam walking boot for comfort Subjective Subjective Interval history since last seen: Patient states that she is doing well and has no complaints or concerns at this time. Exam Narrative Exam Narrative: Well-appearing older female laying in bed in no acute distress, ANO x 4, though continues to have signs of some intermittent short-term and long-term memory loss which is different from her baseline, heart regular rate rhythm, lungs good auscultation bilaterally, abdomen soft, nontender, nondistended, moving all 4 extremities spontaneously, PERRLA, cranial nerves II through XII intact, normal smell sensation and strength in bilateral upper and lower extremities and able to follow commands Objective Last Vital Signs Temp 99.3 F 10/17/24 11:44 Pulse 96 H 10/17/24 11:44 Resp 16 10/17/24 11:44 BP 145/70 H 10/17/24 11:44 Pulse Ox 97 10/17/24 11:44 Laboratory Results - last 24 hr 10/17/24 10:55 WBC 9.24 RBC 4.20 Hgb 12.5 Hct 37.7 MCV 90 MCH 29.8 MCHC 33.2 RDW 13.4 Plt Count 318 MPV 9.0 Sodium 138 Potassium 3.4 L Chloride 104 Carbon Dioxide 24.7 Anion Gap 9.3 BUN 16 Creatinine 1.1 H Est GFR (CKD-EPI 2020) 50.48 Glucose 172 H Calcium 8.3 L Time Spent with Patient Time Spent with Patient: >50 minutes Time was spent: preparing to see the patient(eg.review tests), obtaining and/or reviewing separately otained hiistory, ordering medications,tests, procedures, referring, communicating with other health insurance healthcare representative, indepentently interpreting results, counseling the patient and care coordination
--- NOTE | 2024-10-17 16:58 | NUR.NOTE ---
patient Axox3 this shift, pleasantly confused, still cannot recall fall event. Patient has bruising to R neck and top of head. Had R ankle swelling this AM and was fitted for ortho boot due to talar fx. Patient now with new swelling to L ankle/foot and new pain with manipulation. Pt reported pain with ambulation. Swelling also noted by PT. MD Leary made aware and plan for xray imaging. Patient uses FWW and mod 1 assist to ambulate. Voiding, no BM this shift, VSS, denies pain when not ambulating. Wearing boot when ambulating. Patient has family in room, chair alarm on, call martinez in reach, waiting for dinner. Pending xray of L foot. Patient to go to [facility] and rehab tmrw. Nursing Note:
[2024-10-17 17:01] VITALS: BP 159/71; PULSE 75; RESP 18; TEMP 36.9; O2SAT 94
[2024-10-17] MEDS: Normal Saline Flush 10 ML SYR IVP (19:59)
[2024-10-17] MEDS: Acetaminophen 325 MG TAB PO (19:59)
[2024-10-17 23:13] VITALS: BP 123/61; PULSE 89; RESP 20; TEMP 37.1; O2SAT 94
[2024-10-18 04:07] VITALS: BP 161/81; PULSE 103; RESP 18; TEMP 36.9; O2SAT 96
[2024-10-18] MEDS: Levothyroxine 75 MCG TAB PO (05:25)
[2024-10-18 07:40] VITALS: BP 144/70; PULSE 82; RESP 16; TEMP 36.6; O2SAT 97
[2024-10-18] MEDS: Insulin Glargine 300 UNITS/3 ML PEN 28 UNITS SC (07:57)
--- NOTE | 2024-10-18 07:57 | DSE_ITS ---
Date of service: 10/18/24 Time of Service: 07:58 DS: Diagnosis Discharge Diagnosis (1) Meningioma: Status: Acute (2) Subdural hematoma: Status: Acute (3) Seizure: Status: Acute (4) Rhabdomyolysis: Status: Acute (5) Chronic kidney disease (CKD) stage G1/A3, glomerular filtration rate (GFR) equal to or greater than 90 mL/min/1.73 square meter and albuminuria creatinine ratio greater than 300 mg/g: Status: Acute (6) Insulin dependent diabetes mellitus: Status: Chronic (7) Hypertension: Status: Chronic (8) Fracture of posterior process of right talus: Status: Acute Discharge Plan Disposition Patient Disposition: Long-Term Facility(SNF) Condition: Good Discharge Details Reason For Visit: Rhabdomyolysis Admit Date/Time: 10/14/24 10:53 Admit Provider: Franklin Leary Attending Provider: Franklin Leary Primary Care Provider: Smith Judd Hospital Course Hospital Course: Patient initially presented after being found down at home. She initially did not show any signs of trauma though it was unknown why she had fallen. She was initially admitted for rhabdomyolysis shortly after being admitted patient showed signs of some memory loss which prompted head CT and ultimately an MRI that showed very small posterior subdural hematoma but large right frontal lobe meningioma with surrounding edema. Discussion was had with [facility] neurosurgery and thought is that patient may have had a seizure leading to the fall likely secondary to meningioma. Patient was started on 1000 mg twice daily of Keppra and did not have any additional signs of seizure. Additionally, patient was experiencing pain in her right ankle and ultimately CT showed very small posterior talus fracture and significant costochondritis which orthopedic surgery recommended placing a walking boot on. Ultimately, given the patient was medically stable it was determined that she was stable for discharge to subacute rehab, and with close follow-up to [facility] neurosurgery services. Home Meds and New Rx's Prescriptions: New levetiracetam 500 mg Tablet 1,000 mg PO BID Qty: 90 0RF Continued metformin 500 mg tablet 500 mg PO BID levothyroxine 100 mcg tablet 75 mcg PO DAILY allopurinol 200 mg tablet 200 mg PO DAILY dapagliflozin propanediol [Farxiga] 5 mg tablet 5 mg PO DAILY magnesium 200 mg tablet 400 mg PO DAILY insulin glargine [Lantus Solostar U-100 Insulin] 100 unit/mL (3 mL) insulin pen 28 unit subcut QAM atorvastatin 20 mg tablet 20 mg PO DAILY amlodipine 10 mg tablet 10 mg PO DAILY Patient Comments: pt unsure if she still takes losartan 100 mg tablet 100 mg PO DAILY coenzyme Q10 [CoQ-10] 100 mg Capsule 200 mg PO DAILY zinc 50 mg Capsule 50 mg PO DAILY cholecalciferol (vitamin D3) [Vitamin D3] 125 mcg (5,000 unit) Tablet 125 mcg PO DAILY Discontinued ascorbic acid (vitamin C) 1,000 mg tablet 1 g PO DAILY Invokana 100 mg tablet 100 mg PO DAILY calcium carbonate [Calcium 600] 600 mg calcium (1,500 mg) Tablet 1,200 mg PO DAILY Discharge Instructions Activity:: Activity as Tolerated Equipment/Supplies:: No Equipment Needed Diet:: As Tolerated Discharge Orders Discharge Orders: Discharge Order (Routine); Ordered 10/18/24 Ordered By: Franklin Leary DS: Summary Time Spent with Patient providing and/or coordinating discharge services: Greater than 30 minutes Status at Discharge Functional status at discharge: independent ambulation Overall status at discharge: patient is back to baseline Mental Status: mental status grossly normal Speech and Movement: speech and movement normal Mood: congruent mood Affect: normal affect Quality:SDOH Health Related Social Needs: Health related social needs housing instability, house d, with risk of homelessness (Z59.811) Exam Narrative Exam Narrative: Well-appearing older female laying in bed in no acute distress, ANO x 4, though continues to have signs of some intermittent short-term and long-term memory loss which is different from her baseline, heart regular rate rhythm, lungs good auscultation bilaterally, abdomen soft, nontender, nondistended, moving all 4 extremities spontaneously, PERRLA, cranial nerves II through XII intact, normal smell sensation and strength in bilateral upper and lower extremities and able to follow commands Psych Mental Status: mental status grossly normal Speech and Movement: speech and movement normal Mood: congruent mood Affect: normal affect DS: Data Vitals/I&O Vitals and I&O: Vital Signs Temperature 97.9 F 10/18/24 07:40 Temperature Source Temporal Artery Scan 10/18/24 07:40 Pulse 82 10/18/24 07:40 Pulse Rhythm Regular 10/14/24 12:00 Pulse 84 10/14/24 10:48 Respiratory Rate 16 10/18/24 07:40 Respiratory Effort Normal 10/14/24 12:00 Respiratory Depth Normal 10/14/24 12:00 Respiratory Pattern Normal 10/14/24 12:00 Blood Pressure 144/70 H 10/18/24 07:40 Blood Pressure Mean 94 10/18/24 07:40 Blood Pressure Position Sitting 10/14/24 08:21 Pulse Oximetry 97 10/18/24 07:40 Oxygen Delivery Method Room Air 10/18/24 07:40 Oxygen Flow Rate 0 10/18/24 07:40 Pain Level 5 10/18/24 07:40 Comment RN notified of bp 10/18/24 07:40 Intake & Output 10/17/24 10/18/24 10/18/24 17:59 05:59 17:59 Intake Total 1227.5 / 1227.5 Output Total 400 / 400 800 / 1200 Balance 827.5 / 827.5 -800 / 27.5 Intake: IV 667.5 / 667.5 Oral 560 / 560 Output: Urine 400 / 400 800 / 1200 Other: Urine Color Yellow Yellow Urine Appearance Clear Cloudy Urine Odor None Normal Comment x1 in toilet unmeasured amount in toilet Data Completed and Pending Labs on day of discharge: Labs from last 24 hours 10/17/24 10:55: WBC 9.24, RBC 4.20, Hgb 12.5, Hct 37.7, MCV 90, MCH 29.8, MCHC 33.2, RDW 13.4, Plt Count 318, MPV 9.0, Sodium 138, Potassium 3.4 L, Chloride 104, Carbon Dioxide 24.7, Anion Gap 9.3, BUN 16, Creatinine 1.1 H, Est GFR (CKD- EPI 2020) 50.48, Glucose 172 H, Calcium 8.3 L 10/17/24 06:40 Blood Blood Culture - Pending 10/17/24 02:35 Urine - Voided Urine Culture - Pending Preliminary micro results at discharge 10/17/24 00:36 Blood Blood Culture - Preliminary NO GROWTH 24 HOURS 10/17/24 06:40 Blood Blood Culture - Pending 10/17/24 02:35 Urine - Voided Urine Culture - Pending [facility] All Active Problems (Updated 10/17/24 @ 16:11 by Franklin Leary MD) Fracture of posterior process of right talus (Acute) Subdural hematoma (Acute) Seizure (Acute) Meningioma (Acute) Hypertension (Chronic) Rhabdomyolysis (Acute) Serrated adenoma of colon (Acute) Tubular adenoma of colon (Acute) Hyperplastic colon polyp (Acute) Vitamin D deficiency (Acute) Chronic kidney disease (CKD) stage G1/A3, glomerular filtration rate (GFR) equal to or greater than 90 mL/min/1.73 square meter and albuminuria creatinine ratio greater than 300 mg/g (Acute) Heart murmur, systolic (Acute) Screening for colon cancer (Acute) Sleep apnea (Chronic) Insulin dependent diabetes mellitus (Chronic) Medical History (Updated 10/17/24 @ 16:11 by Franklin Leary MD) DJD (degenerative joint disease) Hypothyroidism associated with surgical procedure Hypomagnesemia Prepatellar bursitis Nocturia Parotid cyst Tubulovillous adenoma of colon Pneumonia Back pain 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 Gonzalez 05/27/20 The left parotid cyst seems to be significantly smaller, and was previously aspirated for thin clear liquid. Hyperlipidemia Diabetes mellitus takes Lantus. 2012 HgbA1c 6.8. 2015 HgbA1c 6.5. No end organ damage. Hypothyroidism (acquired) s/p thyroidectomy for ? thryoid CA. On thyroid replacement. Pt's Parathyroid Hormone 03/2016 = 9 (12-77) Essential hypertension Elevated lipids Pain in left hip Surgical History (Updated 02/14/22 @ 08:16 by Pauline No RN) Trigger finger, right index finger DOS: 10/07/18 Trigger Finger release trigger finger 2012 Total replacement of hip (~12/2013) L Total Hip Arthroplasty. Thyroid ? CA. No further Rx required. Nl Ca levels. Pt. reports thyroid was removed Open Carpal Tunnel release hammer toe [place] carpal [place] Colonoscopy - MAC (~01/2022) Colonoscopy - IV Sedation 2011 Appendectomy 1994 History of Surgical Procedure a. Hammer toe procedure on her left foot. b. Appendectomy. c. Bilateral carpal tunnel releases, trigger releases, bilateral middle fingers. d. Colonoscopy. Family History Sister Personal history of malignant neoplasm ovarian CA. in 50's Social History Smoking/Tobacco Use Status: Never Smoking risk assessment performed?: Yes Alcohol Intake: current Alcohol Intake frequency: holidays/special occasions only Alcohol type: beer and wine Drug use: Never Substance use type: does not use Household members: children and other Details: D. lives with son and son in law. 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 Shana/Anabaptism: Druze Do you feel safe at home: Yes Do you feel safe in your relationship?: Yes Female Reproductive History Menstrual Menopause type: natural History History 4 Para 3 Hx # Term Pregnancies 3 Multiple births Hx # Pregnancies Ectopic pregnancies AB induced Hx Number of Living Children 3 AB spontaneous Time Spent with Patient Time Spent with Patient: <45 minutes Time was spent: preparing to see the patient(eg.review tests), obtaining and/or reviewing separately otained hiistory, ordering medications,tests, procedures, referring, communicating with other health managed care liaison, indepentently interpreting results, counseling the patient and care coordination
[2024-10-18] MEDS: Enoxaparin 40 MG/0.4 ML SYR SC (07:58)
[2024-10-18] MEDS: Normal Saline Flush 10 ML SYR IVP (07:58)
[2024-10-18] MEDS: Losartan 50 MG TAB 100 MG PO (08:01)
[2024-10-18] MEDS: Acetaminophen 325 MG TAB PO (08:02)
[2024-10-18] MEDS: Docusate Sodium 100 MG CAP PO (08:02)
[2024-10-18] MEDS: levETIRAcetam 500 MG TAB 1000 MG PO (08:02)
[2024-10-18] MEDS: amLODIPine 10 MG TAB PO (08:02)
--- NOTE | 2024-10-18 09:33 | NUR.NOTE ---
[patient AxOX2 this AM which is consistent with admission cognitive status, patient uses FWW and 1 min to mod assist for ambulation. R foot in walking boot for talar fx, L foot in post op shoe for balance/height. Patient tolerating PO diet, no BM since 10/15 given colace this AM, urinating, reports pain to foot and head this AM s/p fall, given tylenol with resolve. Sitting in chair with alarm on, PIV removed for d/c to [facility] and rehab, dressed and bathed this AM, son will bring her, pending update on time from Case Management. Call light in reach. Nursing Note:
--- NOTE | 2024-10-18 10:35 | NUR.NOTE ---
report called to Darrin Bravo RN at [facility]. Patient wheeled down by [employer]IDENCE HALL DIRECTOR to POV, son Magan will take patient, all belongings with patient, PIV out. Pt reports no pain at discharge. Nursing Note:
== END 2024-10-18 10:26 | disposition skilled nursing facility (03) | DRG 83 ==
LOC: ER 10:55 → MS 11:48
PROVIDERS: Admitting Provider Family Medicine; Emergency Provider Physician Assistant; PCP Student in an Organized Health Care Education/Training Program; Responsible Provider Family Medicine; Visit Provider Family Medicine
DX: S06.5XAA Traumatic subdural hemorrhage with loss of consciousness status unknown, initial encounter; M62.82 Rhabdomyolysis; D32.0 Benign neoplasm of cerebral meninges; N18.1 Chronic kidney disease, stage 1; E11.22 Type 2 diabetes mellitus with diabetic chronic kidney disease; R41.0 Disorientation, unspecified; I12.9 Hypertensive chronic kidney disease with stage 1 through stage 4 chronic kidney disease, or unspecified chronic kidney disease; Z79.4 Long term (current) use of insulin; S92.131A Displaced fracture of posterior process of right talus, initial encounter for closed fracture; W19.XXXA Unspecified fall, initial encounter; E78.5 Hyperlipidemia, unspecified; E55.9 Vitamin D deficiency, unspecified; R01.1 Cardiac murmur, unspecified; G47.30 Sleep apnea, unspecified; E89.0 Postprocedural hypothyroidism; H90.3 Sensorineural hearing loss, bilateral; R56.9 Unspecified convulsions; M11.271 Other chondrocalcinosis, right ankle and foot
CPT/HCPCS: 00123; 36415; 80048; 80053; 82550; 83690; 85027; 87040; 87077; 93005; 96360; 97162; 97530; 97763; 99285; J1650; 70450; 70551; 73610; 73700; 81003; 81015; 83605; 83735; 84484; 85025; 87086; 87186; 93010; 99223; 99233; 99239; J1815; J1953

== ENCOUNTER 2024-11-08 08:45 | Inpatient (IN) | payer MEDICARE, SELFPAY ==
[2024-11-08] VITALS (59 sets, daily range): BP systolic 81–115; BP diastolic 29–87; PULSE 68–99; RESP 9–35; TEMP 36.1–37.1; O2SAT 69–99
--- NOTE | 2024-11-08 08:45 | RT.EKG_ITS ---
APPROVED REPORT Exam: Resting ECG Reason for Exam: Hypotension Patient Location: E HR:95 bpm ECG Measurements Heart Rate 95 AXIS MO 202 P 54 QRSd 94 QRS 39 QT 349 T -2 QTc 438 Conclusion Sinus rhythm, rate 95 No interval abnormalities Q waves lead III, aVF, V1-3, unchanged from priors No STEMI
--- NOTE | 2024-11-08 08:56 | W.ED.GENAD ---
Discharge Plan Discharge Details Chief Complaint: RashLesion Primary Care Provider: Smith Judd ED Provider: [place] Laurent Home Meds and New Rx's Prescriptions: No Action metformin 500 mg tablet 500 mg PO BID levothyroxine 100 mcg tablet 75 mcg PO DAILY allopurinol 200 mg tablet 200 mg PO DAILY dapagliflozin propanediol [Farxiga] 5 mg tablet 5 mg PO DAILY magnesium 200 mg tablet 400 mg PO DAILY levetiracetam 500 mg Tablet 1,000 mg PO BID Qty: 90 0RF atorvastatin 20 mg tablet 20 mg PO DAILY amlodipine 10 mg tablet 10 mg PO DAILY Patient Comments: pt unsure if she still takes losartan 100 mg tablet 100 mg PO DAILY coenzyme Q10 [CoQ-10] 100 mg Capsule 200 mg PO DAILY zinc 50 mg Capsule 50 mg PO DAILY cholecalciferol (vitamin D3) [Vitamin D3] 125 mcg (5,000 unit) Tablet 125 mcg PO DAILY mirtazapine 7.5 mg tablet 7.5 mg PO QHS HPI General Mode of arrival: EMS. Date/Time Provider Initiated Documentation: 11/08/24 08:47. Limitations to Documentation: no limitations. Information obtained by: patient, EMS, RN notes reviewed and old records reviewed. HPI Narrative: 83-year-old female with a past medical history of diabetes, chronic kidney disease, hypothyroidism, hyperlipidemia, subdural hematoma and possible seizure history who was recently admitted for rhabdomyolysis beginning of October and subsequently found to have a subdural hematoma and suspected seizure presents to the ER with a chief complaint of 3 days of decreasing PO intake, increasing confusion and hypotension. She is from [facility] and rehab. No reported falls. Unknown if she did take her medications this morning. Also of note is she does have a macular papular rash noted to her bilateral arms neck chest which is new and started out the size of a quarter. Patient denies any pruritus. She denies any nausea vomiting diarrhea or headache. She is ANO x 3 upon arrival. Blood pressure upon arrival is 88/48. Related Data Home Medications ?Medication ?Instructions ?Recorded ?Confirmed amlodipine 10 mg tablet 10 mg PO DAILY 09/06/20 11/08/24 atorvastatin 20 mg tablet 20 mg PO DAILY 09/06/20 11/08/24 cholecalciferol (vitamin D3) 125 125 mcg PO DAILY 09/06/20 11/08/24 mcg (5,000 unit) tablet (Vitamin D3) coenzyme Q10 100 mg capsule 200 mg PO DAILY 09/06/20 11/08/24 (CoQ-10) losartan 100 mg tablet 100 mg PO DAILY 09/06/20 11/08/24 zinc 50 mg capsule 50 mg PO DAILY 09/06/20 11/08/24 metformin 500 mg tablet 500 mg PO BID 11/16/22 11/08/24 levothyroxine 100 mcg tablet 75 mcg PO DAILY 03/08/24 11/08/24 allopurinol 200 mg tablet 200 mg PO DAILY 10/14/24 11/08/24 dapagliflozin propanediol 5 mg 5 mg PO DAILY 10/14/24 11/08/24 tablet (Farxiga) magnesium 200 mg tablet 400 mg PO DAILY 10/14/24 11/08/24 levetiracetam 500 mg tablet 1,000 mg (2 x 500 mg) PO BID #90 10/18/24 11/08/24 tabs mirtazapine 7.5 mg tablet 7.5 mg PO QHS 11/08/24 11/08/24 Previous Rx's ?Medication ?Instructions ?Recorded levetiracetam 500 mg tablet 1,000 mg (2 x 500 mg) PO BID #90 10/18/24 tabs Allergies Allergy/AdvReac Type Severity Reaction Status Date / Time No Known Allergies Allergy Unverified 11/08/24 09:08 General JUSTIN: 2 Review of Systems All systems reviewed & are unremarkable except as noted in HPI and below Constitutional Constitutional: Reports as per HPI and Reports poor appetite Cardiovascular Cardiovascular: Reports as per HPI, Denies chest pain, Reports lightheadedness and Denies dyspnea Respiratory Respiratory: Denies dyspnea Gastrointestinal Gastrointestinal: Denies abdominal pain, Denies nausea and Denies vomiting Neurologic Neurologic: Reports as per HPI and Reports confusion Psychiatric Psychiatric: Reports confusion Exam Narrative Exam Narrative: Constitutional: Alert and oriented x3. Appears stated age. Thin body habitus. Head: Normocephalic, no trauma. Eyes: Pupils PERRL, Red reflex noted, EOM's intact. Eyelids symmetrical without lesions, discharge, or swelling. ENT: Bilateral TM's WNL, External ear normal to inspection, no mastoid TTP, swelling, or erythema, Nasal turbinates WNL, no nasal discharge. Normal dentition, Posterior pharynx WNL, no exudate. Chest: RRR, Normal S1, S2, distal pulses intact. Hypotensive upon arrival. Resp: Lungs clear to auscultation bilaterally, no wheezes, rales, or rhonchi. Abdomen: Soft, non-distended, Normoactive bowel sounds all 4 quads. Musculoskeletal: Unable to assess gait, moves all 4 extremities without difficulty. Skin: Maculopapular red rash to upper arms chest and anterior neck no drainage or surrounding induration, capillary refill less than 2 sec. Neurologic: Cranial nerves II-XII intact. Alert and oriented x 3. Motor: No deficits noted. Sensory: Intact bilaterally all 4 extremities. Patient does ask repetitive questions. No focal neurodeficits noted. Hematologic/Lymphatic: No ecchymosis, no lymphadenopathy. Course Lab/Test Results Lab/Test Results: 11/08/24 08:54 Blood Blood Culture - Pending 11/08/24 08:54 Blood Blood Culture - Pending Medical Decision Making 83-year-old female with a past medical history of diabetes, chronic kidney disease, hypothyroidism, hyperlipidemia, subdural hematoma and possible seizure history who was recently admitted for rhabdomyolysis beginning of October and subsequently found to have a subdural hematoma and suspected seizure presents to the ER with a chief complaint of 3 days of decreasing PO intake, increasing confusion and hypotension. She is from [facility] and rehab. No reported falls. Unknown if she did take her medications this morning. Also of note is she does have a macular papular rash noted to her bilateral arms neck chest which is new and started out the size of a quarter. Patient denies any pruritus. She denies any nausea vomiting diarrhea or headache. She is ANO x 3 upon arrival. Blood pressure upon arrival is 88/48. Workup ordered including CBC CMP troponins, EKG lactate blood cultures and urinalysis. Differential diagnose includes but not limited to dehydration, sepsis, GI bleed, electrolyte imbalance, anaphylaxis,Seizure, CVA, drug eruption No leukocytosis, platelets 519, lactate 2.0 sodium 133 potassium critically high at 6.4, BUN critically high at 89 creatinine 4.1 which her last creatinine was 1.1 GFR is 10 glucose 281 magnesium 2.6 AST 38 ALT 59, alk phos 581 lipase 87. LR 500 cc bolus ordered, 12-1/2 of Benadryl and 80 of Solu-Medrol. Duarte ordered and placed by staff air defense officer, 30 cc of cloudy urine output. Patient getting a full liter of LR at this time. Will recheck BMP after bolus. Urinalysis shows greater than 50 WBCs and large leukocytes. 1 g of ceftriaxone IV piggyback ordered. Informed by ED staff that patient has had an episode of diarrhea which is very liquidy. C. difficile and stool studies ordered. 1107: Spoke with Sagrario with hospitalist team discussed patient case in details she verbalized understanding is in agreement for admission. Medical Records Medical records reviewed: Yes I reviewed the patient's medical records. Imaging Data Radiologic Study: Imaging: X-Ray Radiologist's impression: Exam: XR Chest Exam date and time: 11/08/2024 9:21 AM Age: 83 years old Clinical indication: Other: Hypotension TECHNIQUE: Imaging protocol: Radiologic exam of the chest. Views: 1 view. COMPARISON: 1. CT CHEST PE CTA 09/06/2020 10:27 AM 2. CR XR CHEST 2V PA LATERAL 09/06/2020 9:03 AM FINDINGS: Lungs: Clear. No consolidation or pulmonary edema. Pulmonary vasculature is normal in caliber. Pleural spaces: No pleural effusion or pneumothorax. Heart/Mediastinum: Heart size and cardiomediastinal contours are normal. There is atherosclerotic mural calcifications throughout the thoracic aorta. Bones/joints: Degenerative changes. No acute osseous abnormality. IMPRESSION: No active disease in the chest. Thank you for allowing us to participate in the care of your patient. Dictated and Authenticated by: Gaby Edmond MD Radiologic Study #2: Imaging: CT Scan Radiologist's impression: IMPRESSION: 1. Small chronic right temporo-occipital subdural hematoma, diminished in density since 10/14/2024. No acute intracranial hemorrhage. 2. Left frontal lobe meningioma with surrounding edema, regional mass effect and 5 mm of localized rightward midline shift, not significantly changed since 10/14/2024. Thank you for allowing us to participate in the care of your patient. Dictated and Authenticated by: Gaby Edmond MD Lab Data Lab results reviewed: Yes I reviewed the patient's lab results. Labs: 11/08/24 09:48 Urine - Reflex from Ua Urine Culture - Pending 11/08/24 08:54 Blood Blood Culture - Pending 11/08/24 08:54 Blood Blood Culture - Pending Laboratory Tests Range/Units 11/08/24 11/08/24 08:55 09:48 WBC (4.4-10.8) 10^3/uL 8.92 RBC (3.93-5.22) 10^6/uL 4.58 Hgb (11.2-15.7) g/dL 13.3 Hct (36.0-46.0) % 42.7 MCV (80-95) fL 93 MCH (27.0-33.0) pg 29.0 MCHC (32.0-36.0) % 31.1 L RDW (11.7-14.6) % 14.6 Plt Count (130-400) 10^3/uL 519 H MPV (8.0-11.0) fL 9.1 Immature Gran % % 1.7 Neutrophils % % 83.9 Lymphocytes % % 6.5 Monocytes % % 2.5 Eosinophils % % 4.8 Basophils % % 0.6 Nucleated RBC % (0.0-0.3) % 0.0 Absolute Neutrophils (1.2-6.7) 10^3/uL 7.49 H Absolute Lymphocytes (1.2-3.4) 10^3/uL 0.58 L Absolute Monocytes (0.1-0.8) 10^3/uL 0.22 Absolute Eosinophils (0.0-0.7) 10^3/uL 0.43 Absolute Basophils (0.0-0.2) 10^3/uL 0.05 PT (9.1-11.1) sec 10.7 INR (0.9-1.1) 1.1 APTT (20.6-30.2) sec 27.9 VBG Lactate (<or=2.0) mmol/L 2.0 Sodium (136-145) mmol/L 133 L Potassium (3.5-5.1) mmol/L 6.4 H* Chloride (98-107) mmol/L 100 Carbon Dioxide (21.0-32.0) mmol/L 18.9 L Anion Gap (3-11) mmol/L 14.1 H BUN (7-18) mg/dL 89 H* Creatinine (0.55-1.02) mg/dL 4.1 H* Est GFR (CKD-EPI 2020) (mL/min/1.73m2) 10.41 Glucose (74-106) mg/dL 281 H Calcium (8.5-10.1) mg/dL 9.7 Magnesium (1.8-2.4) mg/dL 2.6 H Total Bilirubin (0.2-1.0) mg/dL 0.5 AST (15-37) U/L 38 H ALT (14-59) U/L 59 Alkaline Phosphatase (46-116) U/L 581 H Troponin I (<or=51) ng/L 5 Total Protein (6.4-8.2) g/dL 7.6 Albumin (3.4-5.0) g/dL 2.7 L Lipase (<78) U/L 87 H Urine Color (Yellow) Yellow Urine Clarity (Clear) Cloudy Urine pH (5-8) 5.5 Ur Specific Orient (1.005-1.025) 1.015 Urine Protein (Neg-Trace) mg/dL 30 H Urine Ketones (Negative) mg/dL Negative Urine Blood (Negative) Moderate H Urine Nitrite (Negative) Negative Urine Bilirubin (Negative) Negative Urine Urobilinogen (Up to 0.2) mg/dL 0.2 Ur Leukocyte Esterase (Negative) Large H Urine RBC Not Applicable Urine WBC (0-5) HPF >50 H Ur Epithelial Cells Not Applicable Urine Crystals Not Applicable Urine Bacteria Not Applicable Urine Mucus Not Applicable Ur Culture Indicated? Yes Urine Glucose (Negative) mg/dL 250 H Quality:SDOH Health Related Social Needs: Health related social needs housing instability, housed, with risk of homelessness (Z59.811) PFSH All Active Problems (Updated 11/08/24 @ 11:32 by Sagrario Garvey NP) Rash (Acute) Urinary tract infection (Acute) Fyrhd-ij-fosxnwf kidney injury (Acute) Fracture of posterior process of right talus (Acute) Subdural hematoma (Acute) Meningioma (Acute) Hypertension (Chronic) Serrated adenoma of colon (Acute) Tubular adenoma of colon (Acute) Hyperplastic colon polyp (Acute) Vitamin D deficiency (Acute) Chronic kidney disease (CKD) stage G1/A3, glomerular filtration rate (GFR) equal to or greater than 90 mL/min/1.73 square meter and albuminuria creatinine ratio greater than 300 mg/g (Acute) Heart murmur, systolic (Acute) Screening for colon cancer (Acute) Sleep apnea (Chronic) Insulin dependent diabetes mellitus (Chronic) Medical History DJD (degenerative joint disease) Hypothyroidism associated with surgical procedure Hypomagnesemia Prepatellar bursitis Nocturia Parotid cyst Tubulovillous adenoma of colon Pneumonia Back pain 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 Gonzalez 05/27/20 The left parotid cyst seems to be significantly smaller, and was previously aspirated for thin clear liquid. Hyperlipidemia Diabetes mellitus takes Lantus. 2012 HgbA1c 6.8. 2015 HgbA1c 6.5. No end organ damage. Hypothyroidism (acquired) s/p thyroidectomy for ? thryoid CA. On thyroid replacement. Pt's Parathyroid Hormone 03/2016 = 9 (12-77) Essential hypertension Elevated lipids Pain in left hip Surgical History Trigger finger, right index finger DOS: 10/07/18 Trigger Finger release trigger finger 2012 Total replacement of hip (~12/2013) L Total Hip Arthroplasty. Thyroid ? CA. No further Rx required. Nl Ca levels. Pt. reports thyroid was removed Open Carpal Tunnel release hammer toe and carpal tunnel in [place] Colonoscopy - MAC (~01/2022) Colonoscopy - IV Sedation 2011 Appendectomy 1994 History of Surgical Procedure a. Hammer toe procedure on her left foot. b. Appendectomy. c. Bilateral carpal tunnel releases, trigger releases, bilateral middle fingers. d. Colonoscopy. Family History Sister Personal history of malignant neoplasm ovarian CA. in 50's Social History Smoking/Tobacco Use Status: Never Smoking risk assessment performed?: Yes Alcohol Intake: current Alcohol Intake frequency: holidays/special occasions only Alcohol type: beer and wine Drug use: Never Substance use type: does not use Household members: children and other Details: D. lives with son and son in law. 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
--- NOTE | 2024-11-08 09:01 | DI.RAD_ITS ---
Exam(s) XR CHEST 1V IN DI DEPT EXAM: XR CHEST 1V IN DI DEPT CLINICAL HISTORY: Hypotension. TECHNIQUE: 2D digital imaging was performed. COMPARISON: CR XR CHEST 2V PA LATERAL from 09/06/[address] HEAD WO from 11/08/2024 FINDINGS: Single AP portable view. Heart size is upper normal. The mediastinum is not widened. Right lung is clear. There are increased lung markings in the left lower lobe retrocardiac region ma y represent infiltrate. No pleural effusions. No pulmonary edema. IMPRESSION: Suspicious for left lower lobe infiltrate. Virtual radiology preliminary report reviewed Final report called by myself to [facility] floor 11/08/2024 at 3:18 p.m. DATA REPOSITORY: RADIATION DOSE DELIVERED:
[2024-11-08 09:06] LABS: Abs Immature Grans 0.15 10^3/uL (0.0-0.06); Absolute Basophil Count 0.05 10^3/uL (0.0-0.2); Absolute Eosinophil Count 0.43 10^3/uL (0.0-0.7); Absolute Lymphocyte Count 0.58 10^3/uL (1.2-3.4); Absolute Monocyte Count 0.22 10^3/uL (0.1-0.8); Absolute Neutrophil Count 7.49 10^3/uL (1.2-6.7); Basophils % 0.6 %; Eosinophils % 4.8 %; HCT 42.7 % (36.0-46.0); HGB 13.3 g/dL (11.2-15.7); Immature Grans % 1.7 %; Lymphocytes % 6.5 %; MCHC 31.1 % (32.0-36.0); MCV 93 fL (80-95); MPV 9.1 fL (8.0-11.0); Monocytes % 2.5 %; Neutrophils % 83.9 %; Platelet Count 519 10^3/uL (130-400); RBC 4.58 10^6/uL (3.93-5.22); RDW 14.6 % (11.7-14.6); RDW-SD 49.6 fL; WBC 8.92 10^3/uL (4.4-10.8)
[2024-11-08 09:17] LABS: INR 1.1 (0.9-1.1); PTT Activated 27.9 sec (20.6-30.2); Prothrombin Time 10.7 sec (9.1-11.1)
[2024-11-08 09:22] LABS: ALT 59 U/L (14-59); AST 38 U/L (15-37); Albumin 2.7 g/dL (3.4-5.0); Alkaline Phosphatase 581 U/L (46-116); Anion Gap 14.1 mmol/L (3-11); Bilirubin, Total 0.5 mg/dL (0.2-1.0); CO2 18.9 mmol/L (21.0-32.0); Calcium 9.7 mg/dL (8.5-10.1); Chloride 100 mmol/L (98-107); Estimated GFR 10.41 (mL/min/1.73m2); Glucose 281 mg/dL (74-106); Lipase 87 U/L (<78); Magnesium 2.6 mg/dL (1.8-2.4); Sodium 133 mmol/L (136-145); Total Protein 7.6 g/dL (6.4-8.2); Troponin I 5 ng/L (<or=51)
[2024-11-08 09:24] LABS: BUN 89 mg/dL (7-18); CREATININE 4.1 mg/dL (0.55-1.02)
[2024-11-08 09:25] LABS: Potassium 6.4 mmol/L (3.5-5.1)
--- NOTE | 2024-11-08 09:38 | DI.CT_ITS ---
Exam(s) CT HEAD WO EXAM: CT HEAD WO CLINICAL HISTORY: Confusion, Hx meningioma. TECHNIQUE: Imaging Protocol: Axial computed tomography images with coronal and sagittal reformatted images were created and reviewed COMPARISON: CT CT HEAD WO from 10/14/2024 FINDINGS: There are no skull fractures. There is no fluid in the visualized paranasal sinuses. The previously described subdural hematoma over the right temporal occipital region (which was acute on 10/14/2024) now exhibits decreased density with no evidence of acute hemorrhagic component therein nor elsewhere in the brain. Maximum thickness is 6 mm. Also again noted is a prominent dense partially calcified dural-based extra-axial mass in the left fr ontal region appears unchanged from 10/14/2024 and again the exhibits some surrounding edema and mass effect with 5 mm of local shift of midline structures towards the opposite-right side in the frontal region, unchanged. This is probably a meningioma. There are no new findings in the cerebellar hemispheres nor within the velia, midbrain, and thalami. IMPRESSION: 1. Compared to the prior CT scan of 10/14/2024 the right temporal occipital subdural hematoma is pres ently more hypodense-dimension density and with no evidence of acute hemorrhage therein nor elsewhere in the brain. 2. Left frontal region meningioma with surrounding brain edema again noted and with approximately 5 m m localized shift of midline structures towards the opposite-right side, also unchanged from 10/15/19 25 Preliminary virtual Radiology report was reviewed RADIATION DOSE DELIVERED: 879.96mGy.cm Total DLP DATA REPOSITORY: All CT scans at this facility are submitted to the National Radiology Data Registry (NRDR) Dose Index Registry (DIR) with the [employer] ([employer]). RADIATION OPTIMIZATION: All CT scans at this facility use at least one of these dose optimization te chniques: automated exposure control; mA and/or kV adjustment per patient size (includes targeted exa ms where dose is matched to clinical indication); or iterative reconstruction.
--- NOTE | 2024-11-08 09:44 | DI.VRAD_ITS ---
PROCEDURE INFORMATION: Exam: XR Chest Exam date and time: 11/08/2024 9:21 AM Age: 83 years old Clinical indication: Other: Hypotension TECHNIQUE: Imaging protocol: Radiologic exam of the chest. Views: 1 view. COMPARISON: 1. CT CHEST PE CTA 09/06/2020 10:27 AM 2. CR XR CHEST 2V PA LATERAL 09/06/2020 9:03 AM FINDINGS: Lungs: Clear. No consolidation or pulmonary edema. Pulmonary vasculature is normal in caliber. Pleural spaces: No pleural effusion or pneumothorax. Heart/Mediastinum: Heart size and cardiomediastinal contours are normal. There is atherosclerotic mural calcifications throughout the thoracic aorta. Bones/joints: Degenerative changes. No acute osseous abnormality. IMPRESSION: No active disease in the chest. Dictated and Authenticated by: Gaby Edmond MD. Orderin Mehran Hough MD
--- NOTE | 2024-11-08 09:55 | DI.VRAD_ITS ---
PROCEDURE INFORMATION: Exam: CT Head Without Contrast Exam date and time: 11/08/2024 9:32 AM Age: 83 years old Clinical indication: Altered mental status/memory loss; Confusion or disorientation; Confusion/hx of meningioma TECHNIQUE: Imaging protocol: Computed tomography of the head without contrast. Radiation optimization: All CT scans at this facility use at least one of these dose optimization techniques: automated exposure control; mA and/or kV adjustment per patient size (includes targeted exams where dose is matched to clinical indication); or iterative reconstruction. COMPARISON: 1. MR BRAIN WO 10/14/2024 4:[address] HEAD WO 10/14/2024 1:38 PM FINDINGS: Brain: Again seen is a mildly hyperattenuating dural-based extra-axial mass in the left frontal region which measures 2.4 cm CC x 6.9 cm AP x 4.5 cm TRV, not significantly changed since 10/14/2024 (within the limits of slight differences in head positioning). There is persistent perilesional edema with local mass effect and 5 mm of local rightward midline shift in the frontal region, not significantly changed. There is no acute intracranial hemorrhage. There is a right temporo-occipital extra-axial hypoattenuating collection which measures up to 4 mm in thickness consistent with a small chronic subdural hematoma, where acute hemorrhage was present on the 10/14/2024 study. There is no evidence of acute territorial infarct. Sulcal prominence is consistent with age-related cerebral volume loss. Cerebral ventricles: Diffuse mild ventricular prominence consistent with age-related cerebral volume loss. There is continued mass effect on the anterior horn of the left lateral ventricle. The size and configuration of the ventricular system is stable. Paranasal sinuses: Visualized paranasal sinuses are clear. Mastoid air cells: The mastoid air cells are clear bilaterally. Bones: Unremarkable. Soft tissues: Extracranial soft tissues are unremarkable. IMPRESSION: 1. Small chronic right temporo-occipital subdural hematoma, diminished in density since 10/14/2024. No acute intracranial hemorrhage. 2. Left frontal lobe meningioma with surrounding edema, regional mass effect and 5 mm of localized rightward midline shift, not significantly changed since 10/14/2024. Dictated and Authenticated by: Gaby Edmond MD. Orderin Mehran Hough MD
[2024-11-08 10:12] LABS: Bilirubin Negative (Negative); Blood Moderate (Negative); Clarity Cloudy (Clear); Glucose 250 mg/dL (Negative); Ketones Negative (Negative); Leukocyte Esterase Large (Negative); Nitrite Negative (Negative); Specific Gravity 1.015 (1.005-1.025); Urobilinogen 0.2 mg/dL (Up to 0.2); pH 5.5 (5-8)
[2024-11-08 10:25] LABS: C & S Indicated? Yes; WBC >50 HPF (0-5)
[2024-11-08] MEDS: cefTRIAXone 1 GM/50 ML BAG IVPB (10:48)
[2024-11-08] MEDS: methylPREDNISolone SUCC 125 MG VIAL 80 MG IVP (10:49)
[2024-11-08] MEDS: diphenhydrAMINE 50 MG/ML VIAL 12.5 MG IVP (10:49)
[2024-11-08] MEDS: Famotidine 20 MG/2 ML VIAL IVP (10:49)
[2024-11-08] MEDS: Lactated Ringers 500 ML 1000 ML IV (10:55)
[2024-11-08 11:06] LABS: Calcium 9.2 mg/dL (8.5-10.1); Chloride 103 mmol/L (98-107); Estimated GFR 12.17 (mL/min/1.73m2); Glucose 186 mg/dL (74-106); Potassium 5.5 mmol/L (3.5-5.1); Sodium 133 mmol/L (136-145)
[2024-11-08 11:08] LABS: BUN 88 mg/dL (7-18); CREATININE 3.6 mg/dL (0.55-1.02)
[2024-11-08 11:11] LABS: Troponin I 6 ng/L (<or=51)
--- NOTE | 2024-11-08 11:28 | HPE_ITS ---
Date of service: 11/08/24 Time of Service: 11:28 Assessment and Plan Assessment and plan (1) Uqalo-ow-vjekhop kidney injury: Status: Acute Assessment and plan: in setting of poor po intake last 3 days, already improved after IV resuscitation continue IV hydration Monitor intake and output closely. Duarte catheter was placed in the emergency department Avoid nephrotoxic drugs, metformin and losartan placed on hold Renally dose meds as needed Follow labs closely (2) Hyperkalemia: Status: Acute Assessment and plan: In the setting of BRITAT Improved after IV hydration bolus, continue IV hydration No dynamic EKG changes Continue to monitor and consider Lokelma if remains elevated (3) Urinary tract infection: Status: Acute Assessment and plan: ceftriaxone day 1 while awaiting urine cultures (4) Rash: Status: Acute Assessment and plan: given steroids, famotidine and benadryl in the ED Keppra new med? monitor for now, (5) Left lower lobe pneumonia: Status: Acute Assessment and plan: Left lower lobe pneumonia found on chest x-ray. Day 1 of 5 ceftriaxone doxycycline (6) Subdural hematoma: Status: Acute Assessment and plan: CT on admission: Small chronic right temporo-occipital subdural hematoma, diminished in density since 10/14/2024. No acute intracranial hemorrhage. (7) Hypertension: Status: Chronic Assessment and plan: hold ARB in setting of BRITTA (8) Insulin dependent diabetes mellitus: Status: Chronic Assessment and plan: diabetic diet sliding scale coverage ac/hs metformin on hold in setting of BRITTA (9) Meningioma: Status: Acute Assessment and plan: - previous MRI confirms presence of meningioma -outpatient [facility] [place] neurosurgery appointment planned (10) Seizure: Status: Resolved Assessment and plan: no new seizure activity -continue1 g Keppra twice daily as recommended by [facility] [place] neurosurgery awaiting outpatient neurology appointment (11) Fracture of posterior process of right talus: Status: Acute Assessment and plan: prior CT showed small right poterior talus fracture and extensive chondrocalcinosis -was with Ortho; non-operative, cam walking boot for comfort History of Present Illness Narrative: This is an 83-year-old female patient transported from [facility] and rehab for evaluation of increased confusion poor oral intake over the past 3 days. She was admitted here after suffering a fall with subdural hematoma and rhabdo. Once stabilized she was discharged back to [facility] rehab but has been declining there. Also noted to have bilateral upper extremity red macular rash which has been worsening. She has had no fever no chills. Noted to be hypotensive with a systolic in the 80s. Notable labs show acute kidney injury with a creatinine of 4.1 and a potassium of 6.4. She was given a liter of lactated Ringer's. She was also experiencing diarrhea and was found to have a urinary tract infection. Duarte catheter was placed in the emergency department for accurate FANNY. She has produced approximately 150 cc of urine while being monitored in the emergency department Review of Systems All systems reviewed & are unremarkable except as noted in HPI and below PFSH All Active Problems (Updated 11/08/24 @ 17:17 by Sagrario Garvey NP) Left lower lobe pneumonia (Acute) Hyperkalemia (Acute) Acute UTI (Acute) Acute dehydration (Acute) Acute kidney injury (Acute) Rash (Acute) Urinary tract infection (Acute) Vsjan-[id number] kidney injury (Acute) Fracture of posterior process of right talus (Acute) Subdural hematoma (Acute) Meningioma (Acute) Hypertension (Chronic) Serrated adenoma of colon (Acute) Tubular adenoma of colon (Acute) Hyperplastic colon polyp (Acute) Vitamin D deficiency (Acute) Chronic kidney disease (CKD) stage G1/A3, glomerular filtration rate (GFR) equal to or greater than 90 mL/min/1.73 square meter and albuminuria creatinine ratio greater than 300 mg/g (Acute) Heart murmur, systolic (Acute) Screening for colon cancer (Acute) Sleep apnea (Chronic) Insulin dependent diabetes mellitus (Chronic) Medical History DJD (degenerative joint disease) Hypothyroidism associated with surgical procedure Hypomagnesemia Prepatellar bursitis Nocturia Parotid cyst Tubulovillous adenoma of colon Pneumonia Back pain 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 Gonzalez 05/27/20 The left parotid cyst seems to be significantly smaller, and was previously aspirated for thin clear liquid. Hyperlipidemia Diabetes mellitus takes Lantus. 2012 HgbA1c 6.8. 2015 HgbA1c 6.5. No end organ damage. Hypothyroidism (acquired) s/p thyroidectomy for ? thryoid CA. On thyroid replacement. Pt's Parathyroid Hormone 03/2016 = 9 (12-77) Essential hypertension Elevated lipids Pain in left hip Surgical History Trigger finger, right index finger DOS: 10/07/18 Trigger Finger release trigger finger 2012 Total replacement of hip (~12/2013) L Total Hip Arthroplasty. Thyroid ? CA. No further Rx required. Nl Ca levels. Pt. reports thyroid was removed Open Carpal Tunnel release hammer toe and carpal tunnel in [place] Colonoscopy - MAC (~01/2022) Colonoscopy - IV Sedation 2011 Appendectomy 1994 History of Surgical Procedure a. Hammer toe procedure on her left foot. b. Appendectomy. c. Bilateral carpal tunnel releases, trigger releases, bilateral middle fingers. d. Colonoscopy. Family History Sister Personal history of malignant neoplasm ovarian CA. in 50's Social History Smoking/Tobacco Use Status: Never Smoking risk assessment performed?: Yes Alcohol Intake: current Alcohol Intake frequency: holidays/special occasions only Alcohol type: beer and wine Drug use: Never Substance use type: does not use Household members: children and other Details: D. lives with son and son in law. 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 Shana/Restorationism: Episcopal Do you feel safe at home: Yes Do you feel safe in your relationship?: Yes Female Reproductive History Menstrual Menopause type: natural History History 2 4 Para 3 Hx # Term Pregnancies 3 Multiple births Hx # Pregnancies Ectopic pregnancies AB induced Hx Number of Living Children 3 AB spontaneous Meds Allergies and Home Medications Allergies Allergy/AdvReac Type Severity Reaction Status Date / Time No Known Allergies Allergy Unverified 11/08/24 09:08 Home Medications ?Medication ?Instructions ?Recorded ?Confirmed ?Type amlodipine 10 mg tablet 10 mg PO DAILY 09/06/20 11/08/24 History atorvastatin 20 mg tablet 20 mg PO DAILY 09/06/20 11/08/24 History cholecalciferol (vitamin D3) 125 125 mcg PO DAILY 09/06/20 11/08/24 History mcg (5,000 unit) tablet (Vitamin D3) coenzyme Q10 100 mg capsule 200 mg PO DAILY 09/06/20 11/08/24 History (CoQ-10) losartan 100 mg tablet 100 mg PO DAILY 09/06/20 11/08/24 History zinc 50 mg capsule 50 mg PO DAILY 09/06/20 11/08/24 History metformin 500 mg tablet 500 mg PO BID 11/16/22 11/08/24 History levothyroxine 100 mcg tablet 75 mcg PO DAILY 03/08/24 11/08/24 History allopurinol 200 mg tablet 200 mg PO DAILY 10/14/24 11/08/24 History dapagliflozin propanediol 5 mg 5 mg PO DAILY 10/14/24 11/08/24 History tablet (Farxiga) magnesium 200 mg tablet 400 mg PO DAILY 10/14/24 11/08/24 History levetiracetam 500 mg tablet 1,000 mg (2 x 500 mg) PO BID #90 10/18/24 11/08/24 Rx tabs mirtazapine 7.5 mg tablet 7.5 mg PO QHS 11/08/24 11/08/24 History Exam Const General: cooperative and no acute distress HENAL Head: normocephalic and atraumatic Mouth: moist mucous membranes Eyes Sclera: normal sclerae Resp Auscultation: clear to auscultation bilaterally Cardio Rate: regular rate Rhythm: regular rhythm Heart Sounds: murmur systolic II/ Neuro General: patient alert, patient awake and tone normal Extrem General: no edema Results Labs 11/08/24 08:55 11/08/24 10:27 Labs: Laboratory Results - last 24 hr 11/08/24 11/08/24 11/08/24 08:55 09:48 10:27 WBC 8.92 RBC 4.58 Hgb 13.3 Hct 42.7 MCV 93 MCH 29.0 MCHC 31.1 L RDW 14.6 Plt Count 519 H MPV 9.1 Immature Gran % 1.7 Neutrophils % 83.9 Lymphocytes % 6.5 Monocytes % 2.5 Eosinophils % 4.8 Basophils % 0.6 Nucleated RBC % 0.0 Absolute Neutrophils 7.49 H Absolute Lymphocytes 0.58 L Absolute Monocytes 0.22 Absolute Eosinophils 0.43 Absolute Basophils 0.05 PT 10.7 INR 1.1 APTT 27.9 VBG Lactate 2.0 Sodium 133 L 133 L Potassium 6.4 H* 5.5 H Chloride 100 103 Carbon Dioxide 18.9 L 18.0 L Anion Gap 14.1 H 12.0 H BUN 89 H* 88 H* Creatinine 4.1 H* 3.6 H* Est GFR (CKD-EPI 2020) 10.41 12.17 Glucose 281 H 186 H Calcium 9.7 9.2 Magnesium 2.6 H Total Bilirubin 0.5 AST 38 H ALT 59 Alkaline Phosphatase 581 H Troponin I 5 Total Protein 7.6 Albumin 2.7 L Lipase 87 H Urine Color Yellow Urine Clarity Cloudy Urine pH 5.5 Ur Specific [place] 1.015 Urine Protein 30 H Urine Ketones Negative Urine Blood Moderate H Urine Nitrite Negative Urine Bilirubin Negative Urine Urobilinogen 0.2 Ur Leukocyte Esterase Large H Urine RBC Not Applicable Urine WBC >50 H Ur Epithelial Cells Not Applicable Urine Crystals Not Applicable Urine Bacteria Not Applicable Urine Mucus Not Applicable Ur Culture Indicated? Yes Urine Glucose 250 H 11/08/24 10:42 WBC RBC Hgb Hct MCV MCH MCHC RDW Plt Count MPV Immature Gran % Neutrophils % Lymphocytes % Monocytes % Eosinophils % Basophils % Nucleated RBC % Absolute Neutrophils Absolute Lymphocytes Absolute Monocytes Absolute Eosinophils Absolute Basophils PT INR APTT VBG Lactate Sodium Potassium Chloride Carbon Dioxide Anion Gap BUN Creatinine Est GFR (CKD-EPI 2020) Glucose Calcium Magnesium Total Bilirubin AST ALT Alkaline Phosphatase Troponin I 6 Total Protein Albumin Lipase Urine Color Urine Clarity Urine pH Ur Specific [place] Urine Protein Urine Ketones Urine Blood Urine Nitrite Urine Bilirubin Urine Urobilinogen Ur Leukocyte Esterase Urine RBC Urine WBC Ur Epithelial Cells Urine Crystals Urine Bacteria Urine Mucus Ur Culture Indicated? Urine Glucose Last Vital Signs Temp 37.1 C 11/08/24 09:02 Pulse 89 11/08/24 10:31 Resp 17 11/08/24 10:40 BP 115/87 11/08/24 10:31 Pulse Ox 96 11/08/24 10:11 Time Spent Time spent with Patient: 55-74 minutes Time was spent: preparing to see the patient(eg.review tests), obtaining and/or reviewing separately otained hiistory, ordering medications,tests, procedures, indepentently interpreting results and counseling the patient
[2024-11-08 12:52] LABS: Troponin I 7 ng/L (<or=51)
[2024-11-08] MEDS: Lactated Ringers 1,000 ML 200 ML IV (14:06)
--- NOTE | 2024-11-08 14:14 | W.PC.ACHO ---
Registration Status: Primary Language: Preferred Language: ED Information & Data Chief Complaint RashLesion 11/08/24 09:05 Triage Note pt BIBA from [facility] for 11/08/24 09:02 lethargy/spreading full body rash ongoing for a few days /decreased PO intake and increased confusion, hx of dementia, DM2 on Metformin, BG on arrival 325, afebrile with BP in 80's rechecked 2 times, IV/labs on arrival. 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 left parotid gland Hyperlipidemia Diabetes mellitus Hypothyroidism (acquired) Essential hypertension Elevated lipids Pain in left hip (Last Reviewed 11/08/24 @ 08:59 by France Laurent NP) Trigger finger, right index finger Trigger Finger release Total replacement of hip (~12/2013) Thyroid Open Carpal Tunnel release Colonoscopy - MAC (~01/2022) Colonoscopy - IV Sedation Appendectomy History of Surgical Procedure Most Recent Vital Signs Temperature 37.1 C 11/08/24 09:02 Temperature Source Oral 11/08/24 09:02 Pulse 81 11/08/24 13:50 Pulse 82 11/08/24 13:50 Respiratory Rate 17 11/08/24 13:50 Blood Pressure 110/47 L 11/08/24 13:46 Blood Pressure Mean 68 11/08/24 13:46 Blood Pressure Position Supine 11/08/24 09:02 Pulse Oximetry 98 11/08/24 13:50 Oxygen Delivery Method Room Air 11/08/24 09:02 Oxygen Flow Rate 0 11/08/24 09:02 Pain Level 0 11/08/24 09:02 Allergies No Known Allergies Allergy (Unverified 11/08/24 09:08) Precautions Isolation Standard precaution 11/08/24 09:05 Active Medications Generic Name Dose Route Start Last Admin Trade Name Freq PRN Reason Stop Dose Admin Ringer's Solution 1,000 mls @ 200 mls/hr 11/08/24 11:01 11/08/24 14:06 IV 11/08/24 16:00 200 mls/hr INFUSION STA Administration IV IV Catheter Type [Right Peripheral IV Forearm] IV Catheter Type [Left Peripheral IV Antecubital] IV Catheter Gauge [Right 20 Forearm] IV Catheter Gauge [Left 18 Antecubital] Diagnostics 11/08/24 11/08/24 11/08/24 Range/Units 14:02 12:29 10:42 WBC (4.4-10.8) 10^3/uL RBC (3.93-5.22) 10^6/uL Hgb (11.2-15.7) g/dL Hct (36.0-46.0) % MCV (80-95) fL MCH (27.0-33.0) pg MCHC (32.0-36.0) % RDW (11.7-14.6) % Plt Count (130-400) 10^3/uL MPV (8.0-11.0) fL Immature Gran % % Neutrophils % % Lymphocytes % % Monocytes % % Eosinophils % % Basophils % % Nucleated RBC % (0.0-0.3) % Absolute Neutrophils (1.2-6.7) 10^3/uL Absolute Lymphocytes (1.2-3.4) 10^3/uL Absolute Monocytes (0.1-0.8) 10^3/uL Absolute Eosinophils (0.0-0.7) 10^3/uL Absolute Basophils (0.0-0.2) 10^3/uL PT (9.1-11.1) sec INR (0.9-1.1) APTT (20.6-30.2) sec VBG Lactate (<or=2.0) mmol/L Sodium (136-145) mmol/L Potassium (3.5-5.1) mmol/L Chloride (98-107) mmol/L Carbon Dioxide (21.0-32.0) mmol/L Anion Gap (3-11) mmol/L BUN (7-18) mg/dL Creatinine (0.55-1.02) mg/dL Est GFR (CKD-EPI 2020) (mL/min/1.73m2) Glucose (74-106) mg/dL Calcium (8.5-10.1) mg/dL Magnesium (1.8-2.4) mg/dL Total Bilirubin (0.2-1.0) mg/dL AST (15-37) U/L ALT (14-59) U/L Alkaline Phosphatase (46-116) U/L Troponin I 7 6 (<or=51) ng/L Total Protein (6.4-8.2) g/dL Albumin (3.4-5.0) g/dL Lipase (<78) U/L Urine Color (Yellow) Urine Clarity (Clear) Urine pH (5-8) Ur Specific [place] (1.005-1.025) Urine Protein (Neg-Trace) mg/dL Urine Ketones (Negative) mg/dL Urine Blood (Negative) Urine Nitrite (Negative) Urine Bilirubin (Negative) Urine Urobilinogen (Up to 0.2) mg/dL Ur Leukocyte Esterase (Negative) Urine RBC Urine WBC (0-5) HPF Ur Epithelial Cells Urine Crystals Urine Bacteria Urine Mucus Ur Culture Indicated? Urine Glucose (Negative) mg/dL MRSA (TEM-PCR) Pending 11/08/24 11/08/24 11/08/24 Range/Units 10:27 09:48 08:55 WBC 8.92 (4.4-10.8) 10^3/uL RBC 4.58 (3.93-5.22) 10^6/uL Hgb 13.3 (11.2-15.7) g/dL Hct 42.7 (36.0-46.0) % MCV 93 (80-95) fL MCH 29.0 (27.0-33.0) pg MCHC 31.1 L (32.0-36.0) % RDW 14.6 (11.7-14.6) % Plt Count 519 H (130-400) 10^3/uL MPV 9.1 (8.0-11.0) fL Immature Gran % 1.7 % Neutrophils % 83.9 % Lymphocytes % 6.5 % Monocytes % 2.5 % Eosinophils % 4.8 % Basophils % 0.6 % Nucleated RBC % 0.0 (0.0-0.3) % Absolute Neutrophils 7.49 H (1.2-6.7) 10^3/uL Absolute Lymphocytes 0.58 L (1.2-3.4) 10^3/uL Absolute Monocytes 0.22 (0.1-0.8) 10^3/uL Absolute Eosinophils 0.43 (0.0-0.7) 10^3/uL Absolute Basophils 0.05 (0.0-0.2) 10^3/uL PT 10.7 (9.1-11.1) sec INR 1.1 (0.9-1.1) APTT 27.9 (20.6-30.2) sec VBG Lactate 2.0 (<or=2.0) mmol/L Sodium 133 L 133 L (136-145) mmol/L Potassium 5.5 H 6.4 H* (3.5-5.1) mmol/L Chloride 103 100 (98-107) mmol/L Carbon Dioxide 18.0 L 18.9 L (21.0-32.0) mmol/L Anion Gap 12.0 H 14.1 H (3-11) mmol/L BUN 88 H* 89 H* (7-18) mg/dL Creatinine 3.6 H* 4.1 H* (0.55-1.02) mg/dL Est GFR (CKD-EPI 2020) 12.17 10.41 (mL/min/1.73m2) Glucose 186 H 281 H (74-106) mg/dL Calcium 9.2 9.7 (8.5-10.1) mg/dL Magnesium 2.6 H (1.8-2.4) mg/dL Total Bilirubin 0.5 (0.2-1.0) mg/dL AST 38 H (15-37) U/L ALT 59 (14-59) U/L Alkaline Phosphatase 581 H (46-116) U/L Troponin I 5 (<or=51) ng/L Total Protein 7.6 (6.4-8.2) g/dL Albumin 2.7 L (3.4-5.0) g/dL Lipase 87 H (<78) U/L Urine Color Yellow (Yellow) Urine Clarity Cloudy (Clear) Urine pH 5.5 (5-8) Ur Specific [place] 1.015 (1.005-1.025) Urine Protein 30 H (Neg-Trace) mg/dL Urine Ketones Negative (Negative) mg/dL Urine Blood Moderate H (Negative) Urine Nitrite Negative (Negative) Urine Bilirubin Negative (Negative) Urine Urobilinogen 0.2 (Up to 0.2) mg/dL Ur Leukocyte Esterase Large H (Negative) Urine RBC Not Applicable Urine WBC >50 H (0-5) HPF Ur Epithelial Cells Not Applicable Urine Crystals Not Applicable Urine Bacteria Not Applicable Urine Mucus Not Applicable Ur Culture Indicated? Yes Urine Glucose 250 H (Negative) mg/dL MRSA (TEM-PCR) 11/08/24 10:42 Blood Culture - Pending Blood 11/08/24 09:48 Urine Culture - Pending Urine - Reflex from Ua 11/08/24 08:54 Blood Culture - Pending Blood Intake and Output - 24 Hour Total 11/08/24 08:41 thru 11/08/24 12:52 Intake Total 1050 Output Total 30 Balance 1020 Weight 53.8 kg Intake: IV 1050 Output: Urine 30 Other: Urine Color Yellow Urine Appearance Cloudy Urinary Catheter Urinary Catheter Date of 11/08/24 Insertion [Urethral ([place])] Time of insertion [Urethral ( 09:50 Duarte)] Falls Risk Assessment History of Falls Previous History 11/08/24 09:05 Contributing Factors Confusion,Unstable, 11/08/24 09:05 Impairments,Incontinence, Medications Ambulatory Aids Uses ambulatory device + 11/08/24 09:05 Tubes/Lines None 11/08/24 09:05 Gait Evaluation W/no contributing factors 11/08/24 09:05 Fall Total Score 70 11/08/24 09:05 Level of Risk High Risk 11/08/24 09:05 Problems (Last Reviewed 11/08/24 @ 08:59 by France Laurent NP) Acute UTI (Acute) Acute dehydration (Acute) Acute kidney injury (Acute) Rash (Acute) Urinary tract infection (Acute) Tvmsk-[id number]-uvgjnpo kidney injury (Acute) Fracture of posterior process of right talus (Acute) Subdural hematoma (Acute) Meningioma (Acute) Hypertension (Chronic) Insulin dependent diabetes mellitus (Chronic) v v v v v v v v v Sending and/or Receiving Nurses: Please use comment section below to note any information pertinent to the patient hand-off not included above. Information / Comments: PT transfers from Ed to rm [id number] Report received from: Karin Daniel RN
[2024-11-08 15:24] LABS: MRSA PCR Negative (Negative)
[2024-11-08] MEDS: DOXYCYCLINE 100 MG in Normal Saline 100 ML IVPB (18:00)
[2024-11-08] MEDS: Atorvastatin 20 MG TAB PO (20:05)
[2024-11-08] MEDS: Mirtazapine 15 MG TAB 7.5 MG PO (20:06)
[2024-11-08] MEDS: Normal Saline Flush 10 ML SYR IVP (20:07)
[2024-11-08] MEDS: levETIRAcetam 500 MG TAB 1000 MG PO (20:08)
[2024-11-08] MEDS: Lactated Ringers 1,000 ML 150 ML IV (21:01)
[2024-11-08] MEDS: Enoxaparin 30 MG/0.3 ML SYR SC (21:28)
[2024-11-09] MEDS: Lactated Ringers 1,000 ML 150 ML IV (04:11)
[2024-11-09] MEDS: Levothyroxine 75 MCG TAB PO (05:24)
[2024-11-09] MEDS: DOXYCYCLINE 100 MG in Normal Saline 100 ML IVPB ×2 (05:25→17:32)
[2024-11-09 07:52] VITALS: BP 121/67; PULSE 73; RESP 18; TEMP 36.5; O2SAT 98
[2024-11-09] MEDS: cefTRIAXone 1 GM/50 ML BAG IVPB (08:22)
[2024-11-09] MEDS: levETIRAcetam 500 MG TAB 1000 MG PO ×2 (08:23→20:21)
[2024-11-09] MEDS: Insulin Aspart 300 UNITS/3 ML PEN SC ×3 (08:23→17:09)
[2024-11-09] MEDS: Normal Saline Flush 10 ML SYR IVP ×3 (08:24→20:21)
--- NOTE | 2024-11-09 08:29 | IN_ITS ---
PT Notes Visit Reasons: BRITTA, hyperkalemia, UTI Physical Therapy Inpatient Initial Evaluation Date: 11/09/2024 Referring Doctor: Sagrario Garvey NP PT Orders: PT CONSULT: PT Evaluation and treatment Precautions:CAM boot right, ambulate with assist, standard, Duarte, MENTASTA bilateral Per Dr. Leary as of 10/17/2024: WBAT on the R LE with fracture boot/CAM boot on R and post-op shoe on the L foot. Patient Profile/Admitting Diagnosis: Patient is 83-year-old female presented to ED from [facility] with altered mental status patient diagnosed with UTI, left lower lobe pneumonia acute kidney injury. Patient with recent hospitalization on 10/14/2024 for SDH right temporal occipital and fracture of posterior process of right talus. At that time patient was placed in a cam boot with nonoperative management of fracture. PMHX: Left lower lobe pneumonia (Acute) Hyperkalemia (Acute) Acute UTI (Acute) Acute dehydration (Acute) Acute kidney injury (Acute) Rash (Acute) Urinary tract infection (Acute) Oevso-kc-hoianlf kidney injury (Acute) Fracture of posterior process of right talus (Acute) Subdural hematoma (Acute) Meningioma (Acute) Hypertension (Chronic) Serrated adenoma of colon (Acute) Tubular adenoma of colon (Acute) Hyperplastic colon polyp (Acute) Vitamin D deficiency (Acute) Chronic kidney disease (CKD) stage G1/A3, glomerular filtration rate (GFR) equal to or greater than 90 mL/min/1.73 square meter and albuminuria creatinine ratio greater than 300 mg/g (Acute) Heart murmur, systolic (Acute) Screening for colon cancer (Acute) Sleep apnea (Chronic) Insulin dependent diabetes mellitus (Chronic) Medical History DJD (degenerative joint disease) Hypothyroidism associated with surgical procedure Hypomagnesemia Prepatellar bursitis Nocturia Parotid cyst Tubulovillous adenoma of colon Pneumonia Back pain 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 Gonzalez 05/27/20 The left parotid cyst seems to be significantly smaller, and was previously aspirated for thin clear liquid.Hyperlipidemia Diabetes mellitus takes Lantus. 2012 HgbA1c 6.8. 2015 HgbA1c 6.5. No end organ damage.Hypothyroidism (acquired) s/p thyroidectomy for ? thryoid CA. On thyroid replacement. Pt's Parathyroid Hormone 03/2016 = 9 (12-77)Essential hypertension Elevated lipids Pain in left hip Surgical History Trigger finger, right index finger DOS: 10/07/18Trigger Finger release trigger finger 2013Total replacement of hip (~12/2013) L Total Hip Arthroplasty.Thyroid ? CA. No further Rx required. Nl Ca levels. Pt. reports thyroid was removedOpen Carpal Tunnel release hammer toe and carpal tunnel in [place] (~[place]) Colonoscopy - IV Sedation 2012Appendectomy 1995History of Surgical Procedure a. Hammer toe procedure on her left foot. b. Appendectomy. c. Bilateral carpal tunnel releases, trigger releases, bilateral middle fingers. d. Colonoscopy. Social History/Home Situation: Patient recent at SNF for short-term rehab status post hospitalization 10/14/2024. Per care management patient may be discharged home with family to live in [place]. Patient requires assistance for ADLs and supervision for mobility with FWW Equipment Owned/DME: FWW,CAM boot right lower extremity Subjective: Patient reports she is very tired and wants to take a nap Objective: [] General Observation: Female presented semireclined IV infusing in left upper extremity Duarte catheter in place Mental Status: Alert and oriented to person and family. Pleasantly confused agreeable to participate Pain: Denied ROM: [] Right Upper Extremity: WFL Left Upper Extremity: WFL Right Lower Extremity: WFL dorsiflexion to neutral Left Lower Extremity: WNL Strength: [] Right Upper Extremity: 5/5 Left Upper Extremity: 5/5 Right Lower Extremity: Grossly 4/5 except right ankle no resistance applied 3/5 Left Lower Extremity: Grossly 4/5 Sensation: Intact to light touch Bed Mobility/Transfers: [] Supine to sit contact-guard assist Sit to stand min assist Stand to sit min assist Bed to chair step turn with FWW and protective weightbearing min assist Gait: Not assessed at this time secondary to right CAM boot not present Balance: [] Static Sitting: Normal Dynamic Sitting: Good Static Standing: Fair with FWW Dynamic Standing: Fair minus with FWW due to protective weightbearing Special Tests: [] Mobility Limitations Standardized Measure [] [facility] AM-PAC 6 clicks Basic Mobility Inpatient Short Form: [] Raw Score: 20 CMS Score: 35.83% Informed Consent/Education: Patient instructed in purpose of PT consult. Assessment: Patient is 83-year-old female presenting with fatigue. Patient with recent right posterior talus fracture on 10/14/2024 and was placed in a CAM boot with nonoperative intervention. Patient has not seen Ortho since fracture however presented to the ED without CAM boot from SNF. Patient reports no pain in right ankle. Patient performed protective weightbearing transfer with FWW step turn only to chair. Family was requested to bring CAM boot and Ortho consult requested question follow-up need regarding right talus fracture. Patient's cognitive impairment limits her ability to provide accurate information. Patient will need gait assessment once weightbearing status and use of cam boot is clarified with Ortho/MD. Patient presents with clinical signs and symptoms consistent with current/admitting diagnoses that have resulted to mobility limitations, gait instability, generalized weakness, and impairment of motor control as demonstrated by the following impairment level findings: 1. Decreased strength to BUE/BLE major muscle groups 2. Impaired standing balance 3. Limitation of joint range of motion in right ankle 4. Impaired functional activity tolerance 5. Impaired cognition/short-term memory Impairments are contributing to the following functional limitations: 1. Inability to safely ambulate without assistive device 2. Increase completion time for mobility ADL performance 3. Increased fall risk 4. Decline in transfers 5. Inability to perform stairs safely without assistance 6. Decline in bed mobility Patient is assessed as a low complexity based on the following: History: 83-year-old female with impairment level findings, functional limitations, and past medical history as indicated above Examination: Demonstrable impairment in strength, balance, and mobility level with underlying impairments and functional limitations as documented above Presentation: Stable Decision Making: Low Goals: 1. Supervision bed mobility 2. Supervision transfers with least restrictive device cues for hand placement 3. Supervised ambulation with least restrictive device greater than 150 feet 4. Supervision 4 stairs with rail Plan of Care/Treatment Plan: 1-2x/day, 7 days/week x 1 week. Plan of care has been reviewed with the [employer] providing the service under Physical Therapy direction. Initiate Physical Therapy intervention for strengthening, bed mobility, transfers, gait, stairs, balance training, use of assistive device. DISCHARGE RECOMMENDATIONS: Return to SNF versus home with family and HH PT TREATMENT CODE/TIME: 42626/[id number] Thank you for the opportunity to participate in the care of this patient. Flaca Shah, PT [facility]
--- NOTE | 2024-11-09 09:08 | INITIAL_ITS ---
Date of service: 11/09/24 Time of Service: 17:52 Care Management Initial Assmt Initial Assessment Reason for Hospitalization: BRITTA, hyperkalemia, UTI Functional Status/Living Situation Patient Presentation: Erika was lying in bed when CM arrived. In her room visiting was her son, and 2 sisters. Erika was discharged from [facility] to [facility] for STR on 10/18/24. She presented to the ED on 11/08/24 to be evaluated for chief complaint of 3 days of decreasing PO intake, increasing confusion and hypotension. Per Magan, Erika was not receiving proper care at [facility]; he reports that she had lost 12-14 lbs and was actively dying. Magan has pulled her out of the rehab and she will not be returning due to concerns of neglect cause by [facility]. CM listened to pt concerns and provided ombudsman and reporting resources. CM provided information to coordinate a PCP transfer, and joined a provider/family meeting regarding discharge plan. Magan has coordinated with Erika a move to [place], [place]; He was requesting clearance for his mom to fly; provider aware. CM will follow. Town of Residence: [facility] Resides with: Other ([facility] ) Significant Other/Family: Out of area (4 sons all live out of state) Caregiver/Guardian: [facility] Natural Supports: Friends Employment Status: Retired Instrumental Activities of Daily Living (ADLs): Requires support Medications Medication Management: No Issues/Barriers identified Physical Functioning/Mobility Assistive Device: FWW, Cane Advance Directives Advance Directives: Do you have an Advance Directive: Y 05/09/21 08:11 AD On File at [facility]: N 05/09/21 08:11 Date Asked 10/14/24 10/14/24 08:24 AD Date Reviewed COLST On File at [facility] COLST Date Scanned Code Status Resuscitation Status Full Code Portal Pt does not currently have a portal and education provided: Yes Insurance Coverage/Financial Issues Insurance: AARP/UN.HL Mcr Replacement Care Team Visit Care Team Role Provider Type Smith Judd Primary Care Provider NON-[facility] STAFF PHYSICIAN María Elena Alexis RDN, CDCES Other Providers CENTRAL OFFICE INSPECTOR Asif Perez Other Providers OTHER Rashel Castle RDN Other Providers CENTRAL OFFICE INSPECTOR France Laurent NP Emergency Provider NURSE PRACTITIONER Mathew Fuentes MD Admit Provider MD RASCON STAFF PHYSICIAN Attending Provider Discharge Potential Discharge Needs: PCP F/U Appt Anticipated Barriers to Discharge: Medical Status Patient/Family Education Needs: Review discharge instructions, discuss Ask Me Three Transportation: Private vehicle Plan: Anticipate Erika will be discharged to a home in [place], [place] with her sisters, when medically ready. Magan is coordinating airline arrangements and hoping to have her there by . Son is working to establish care with a new medical team in [place]. CM referred him to medical records and educated on the portal, he is aware he will need to obtain a release of records and consent form for a new PCP when found. It is recommended that she continue per her plan of care and transport with family. CM will follow and continue to assess for discharge needs Social Determinants of Health Screening Social Determinants of health last assessed in clinic: 11/09/24 Will the Patient Participate in the Screening?: Yes Do you worry about having a steady place to live?: no Problems where you live: no known problems In the past 12 months, have you had to go without electric, gas, oil or water in your home?: no 1. Within the past 12 months, we worried whether our food would run out before we got money to buy more.: Never true 2. Within the past 12 months, the food we bought just didn't last and we didn't have money to get more.: Never true Has lack of transportation kept you from medical appointments or from doing things needed for daily living?: no Has anyone in your life made you feel unsafe or unsupported?: no How hard is it for you to pay for the very basics like food, housing, medical care, and heating? Would you say it is:: Not hard at all Do you want help finding or keeping work or a job?: I do not need or want help If for any reason you need help with day-to-day activities such as bathing, preparing meals, shopping, managing finances, etc., do you get the help you need?: I don?t need any help How often do you feel lonely or isolated from those around you?: Never Do you speak a language other than Hong Konger at home?: No Does the patient want assistance with any of the above?: No PFSH All Active Problems (Updated 11/09/24 @ 15:42 by Sagrario Garvey NP) Discharge planning issues (Acute) Left lower lobe pneumonia (Acute) Hyperkalemia (Acute) Acute UTI (Acute) Acute dehydration (Acute) Acute kidney injury (Acute) Rash (Acute) Urinary tract infection (Acute) Gvqcj-yk-bhtlrgh kidney injury (Acute) Fracture of posterior process of right talus (Acute) Subdural hematoma (Acute) Meningioma (Acute) Hypertension (Chronic) Serrated adenoma of colon (Acute) Tubular adenoma of colon (Acute) Hyperplastic colon polyp (Acute) Vitamin D deficiency (Acute) Chronic kidney disease (CKD) stage G1/A3, glomerular filtration rate (GFR) equal to or greater than 90 mL/min/1.73 square meter and albuminuria creatinine ratio greater than 300 mg/g (Acute) Heart murmur, systolic (Acute) Screening for colon cancer (Acute) Sleep apnea (Chronic) Insulin dependent diabetes mellitus (Chronic) Medical History DJD (degenerative joint disease) Hypothyroidism associated with surgical procedure Hypomagnesemia Prepatellar bursitis Nocturia Parotid cyst Tubulovillous adenoma of colon Pneumonia Back pain 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 Gonzalez 05/27/20 The left parotid cyst seems to be significantly smaller, and was previously aspirated for thin clear liquid. Hyperlipidemia Diabetes mellitus takes Lantus. 2012 HgbA1c 6.8. 2015 HgbA1c 6.5. No end organ damage. Hypothyroidism (acquired) s/p thyroidectomy for ? thryoid CA. On thyroid replacement. Pt's Parathyroid Hormone 03/2016 = 9 (12-77) Essential hypertension Elevated lipids Pain in left hip Surgical History Trigger finger, right index finger DOS: 10/07/18 Trigger Finger release trigger finger 2012 Total replacement of hip (~12/2013) L Total Hip Arthroplasty. Thyroid ? CA. No further Rx required. Nl Ca levels. Pt. reports thyroid was removed Open Carpal Tunnel release hammer toe [place]pal [place] Colonoscopy - MAC (~01/2022) Colonoscopy - IV Sedation 2011 Appendectomy 1994 History of Surgical Procedure a. Hammer toe procedure on her left foot. b. Appendectomy. c. Bilateral carpal tunnel releases, trigger releases, bilateral middle fingers. d. Colonoscopy. Family History Sister Personal history of malignant neoplasm ovarian CA. in 50's Social History Smoking/Tobacco Use Status: Never Smoking risk assessment performed?: Yes Alcohol Intake: current Alcohol Intake frequency: holidays/special occasions only Alcohol type: beer and wine Drug use: Never Substance use type: does not use Household members: children and other Details: D. lives with son and son in law. 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: No Had an appointment Been Scheduled?: No Describe barriers for scheduling or getting an appointment: [facility] Speicalist Appointments Have you seen any other specialist since your 1st Admission?: No I. Interview patient and/or Family Difficulty reaching your doctor or getting an office appt?: No Have you had trouble purchasing/ or taking medication?: No Have you had trouble with getting meals at home?: No Did you feel ready for discharge when you left the last time: Yes Were services received that you thought were set up on disch: Yes What services were received?: SNF Did you call your physician beore you came to the ED?: No Did your physician tell you to come in?: No How do you think you became sick enough to come back?: [facility] was neglecting my mom and causing her to actively If the patient came from Ext. Facility Call the Facility to discuss the patient's admission: Brought in by EMS from [facility] for lethagry /spreading full body rash ongoing for a few days/decreased PO intake and increase confusion. ED visits How many ED visits in the past 12 months: 3 Assessment for Readmission Summary of readmission circumstances, based upon interviews: It seems Erika was failing to thrive at [facility]. She was not eating so she had lost weight, and became dehydrated.
[2024-11-09 11:35] LABS: Hemoglobin A1C 7.5 % (<5.7)
[2024-11-09 12:02] LABS: Abs Immature Grans 0.11 10^3/uL (0.0-0.06); Absolute Basophil Count 0.04 10^3/uL (0.0-0.2); Absolute Eosinophil Count 0.12 10^3/uL (0.0-0.7); Absolute Lymphocyte Count 0.88 10^3/uL (1.2-3.4); Absolute Monocyte Count 0.31 10^3/uL (0.1-0.8); Basophils % 0.6 %; Eosinophils % 1.7 %; HCT 35.4 % (36.0-46.0); HGB 11.3 g/dL (11.2-15.7); Immature Grans % 1.5 %; Lymphocytes % 12.1 %; MCH 29.4 pg (27.0-33.0); MCHC 31.9 % (32.0-36.0); MCV 92 fL (80-95); Monocytes % 4.3 %; Neutrophils % 79.8 %; Platelet Count 512 10^3/uL (130-400); RBC 3.84 10^6/uL (3.93-5.22); RDW 14.5 % (11.7-14.6); RDW-SD 48.5 fL; WBC 7.26 10^3/uL (4.4-10.8)
[2024-11-09 12:09] LABS: Anion Gap 14.1 mmol/L (3-11); BUN 71 mg/dL (7-18); CO2 21.9 mmol/L (21.0-32.0); CREATININE 2.6 mg/dL (0.55-1.02); Calcium 9.5 mg/dL (8.5-10.1); Chloride 107 mmol/L (98-107); Estimated GFR 17.98 (mL/min/1.73m2); Glucose 159 mg/dL (74-106); Potassium 5.4 mmol/L (3.5-5.1); Sodium 143 mmol/L (136-145)
--- NOTE | 2024-11-09 14:07 | W.PM.PROGNOT ---
Date of Service Date of service: 11/09/24 Time of Service: 14:13 Assessment and Plan Assessment and plan (1) Vcrkx-uf-hegqcbo kidney injury: Status: Acute Assessment and plan: Continues to improve with IV hydration Monitor intake and output closely. Duarte catheter was placed in the emergency department Avoid nephrotoxic drugs, metformin and losartan remain on hold Renally dose meds as needed Follow labs closely (2) Hyperkalemia: Status: Acute Assessment and plan: In the setting of BRITTA Improved after IV hydration bolus, but remains at 5.4 today No dynamic EKG changes Will give 1 dose of Lokelma (3) Urinary tract infection: Status: Acute Assessment and plan: ceftriaxone day 2 while awaiting urine cultures (4) Rash: Status: Acute Assessment and plan: given steroids, famotidine and benadryl in the ED Keppra new med? monitor for now, (5) Left lower lobe pneumonia: Status: Acute Assessment and plan: Left lower lobe pneumonia found on chest x-ray. Day 2 of 5 ceftriaxone doxycycline No oxygen requirements no cough or fever (6) Subdural hematoma: Status: Acute Assessment and plan: CT on admission: Small chronic right temporo-occipital subdural hematoma, diminished in density since 10/14/2024. No acute intracranial hemorrhage. (7) Hypertension: Status: Chronic Assessment and plan: Continue to hold ARB in setting of BRITTA (8) Insulin dependent diabetes mellitus: Status: Chronic Assessment and plan: diabetic diet sliding scale coverage ac/hs metformin on hold in setting of BRITTA Hemoglobin A1c 7.5 (9) Meningioma: Status: Acute Assessment and plan: - previous MRI confirms presence of meningioma -outpatient [facility] neurosurgery appointment planned (10) Seizure: Status: Resolved Assessment and plan: no new seizure activity -continue1 g Keppra twice daily as recommended by [facility] neurosurgery awaiting outpatient neurology appointment (11) Fracture of posterior process of right talus: Status: Acute Assessment and plan: prior CT showed small right poterior talus fracture and extensive chondrocalcinosis -was with Ortho; non-operative, cam walking boot for comfort (12) Discharge planning issues: Status: Acute Assessment and plan: Plan is to discharge home with family If remains improving and remain medically stable plan to down step antibiotics to oral based on cultures. If taking good oral intake, stop IV fluids tomorrow and recheck labs Sunday morning. Anticipate a discharge to home Sunday or Sunday if she remains medically stable Case management following for discharge planning Physical therapy consultation placed Discussed with Dr. Fuentes Subjective Subjective Patient reports: no new complaints, feels better, tolerating liquids well and afebrile; denies shortness of breath Interval history since last seen: Patient is returning to her baseline now responding appropriately and interactive. Has been up out of bed. Is taking some oral intake Exam Const General: cooperative, comfortable and no acute distress Nutritional Appearance: average body habitus Orientation: alert, awake and oriented to person [facility] Head: normal to inspection, normocephalic and atraumatic Mouth: moist mucous membranes Eyes General: appearance normal, both eyes and all related structures Sclera: normal sclerae Chest Chest: normal inspection of the chest Resp Auscultation: clear to auscultation bilaterally and diminished lung sounds bilaterally in the lower lung maria Cardio Rate: regular rate Rhythm: regular rhythm GI Inspection: normal to inspection Neuro General: patient alert, patient awake and tone normal Extrem General: normal to inspection, full ROM and no edema Objective Last Vital Signs Temp 36.5 C 11/09/24 07:52 Pulse 73 11/09/24 07:52 Resp 18 11/09/24 07:52 BP 121/67 11/09/24 07:52 Pulse Ox 98 11/09/24 07:52 Laboratory Results - last 24 hr 11/08/24 11/08/24 11/09/24 08:55 14:02 11:51 WBC 7.26 RBC 3.84 L Hgb 11.3 D Hct 35.4 L MCV 92 MCH 29.4 MCHC 31.9 L RDW 14.5 Plt Count 512 H MPV 9.0 Immature Gran % 1.5 Neutrophils % 79.8 Lymphocytes % 12.1 Monocytes % 4.3 Eosinophils % 1.7 Basophils % 0.6 Nucleated RBC % 0.0 Absolute Neutrophils 5.80 Absolute Lymphocytes 0.88 L Absolute Monocytes 0.31 Absolute Eosinophils 0.12 Absolute Basophils 0.04 Sodium 143 D Potassium 5.4 H Chloride 107 Carbon Dioxide 21.9 Anion Gap 14.1 H BUN 71 H Creatinine 2.6 H D Est GFR (CKD-EPI 2020) 17.98 Glucose 159 H Hemoglobin A1c 7.5 H Calcium 9.5 MRSA (TEM-PCR) Negative Time Spent with Patient Time Spent with Patient: 35-49 minutes Time was spent: preparing to see the patient(eg.review tests), obtaining and/or reviewing separately otained hiistory, ordering medications,tests, procedures, indepentently interpreting results, counseling the patient and care coordination
[2024-11-09] MEDS: Sodium Zirconium Cyclosilicate 10 GM PKT PO ×2 (15:39→22:19)
[2024-11-09 16:14] LABS: Lab Add On Test DONE
[2024-11-09 16:38] LABS: Hemoglobin A1C 7.5 % (<5.7)
[2024-11-09 19:37] VITALS: BP 122/49; PULSE 91; RESP 18; TEMP 37; O2SAT 99
[2024-11-09] MEDS: Mirtazapine 15 MG TAB 7.5 MG PO (20:20)
[2024-11-09] MEDS: Enoxaparin 30 MG/0.3 ML SYR SC (20:20)
[2024-11-09] MEDS: Atorvastatin 20 MG TAB PO (20:21)
[2024-11-10] MEDS: Levothyroxine 75 MCG TAB PO (05:48)
[2024-11-10] MEDS: DOXYCYCLINE 100 MG in Normal Saline 100 ML 50 MG IVPB (05:50)
[2024-11-10 07:30] VITALS: BP 125/63; PULSE 88; RESP 18; TEMP 37.2; O2SAT 97
[2024-11-10 07:33] LABS: Abs Immature Grans 0.06 10^3/uL (0.0-0.06); Absolute Basophil Count 0.07 10^3/uL (0.0-0.2); Absolute Eosinophil Count 0.65 10^3/uL (0.0-0.7); Absolute Lymphocyte Count 0.74 10^3/uL (1.2-3.4); Absolute Monocyte Count 0.33 10^3/uL (0.1-0.8); Absolute Neutrophil Count 6.98 10^3/uL (1.2-6.7); Basophils % 0.8 %; Eosinophils % 7.4 %; HCT 35.8 % (36.0-46.0); HGB 11.4 g/dL (11.2-15.7); Immature Grans % 0.7 %; Lymphocytes % 8.4 %; MCH 29.3 pg (27.0-33.0); MCHC 31.8 % (32.0-36.0); MCV 92 fL (80-95); MPV 9.4 fL (8.0-11.0); Monocytes % 3.7 %; Platelet Count 450 10^3/uL (130-400); RBC 3.89 10^6/uL (3.93-5.22); RDW 14.4 % (11.7-14.6); RDW-SD 48.4 fL; WBC 8.83 10^3/uL (4.4-10.8)
[2024-11-10 07:48] LABS: Anion Gap 11.8 mmol/L (3-11); BUN 56 mg/dL (7-18); CO2 23.2 mmol/L (21.0-32.0); CREATININE 2.1 mg/dL (0.55-1.02); Calcium 9.5 mg/dL (8.5-10.1); Chloride 112 mmol/L (98-107); Estimated GFR 23.23 (mL/min/1.73m2); Glucose 156 mg/dL (74-106); Potassium 4.6 mmol/L (3.5-5.1); Sodium 147 mmol/L (136-145)
[2024-11-10] MEDS: Insulin Aspart 300 UNITS/3 ML PEN SC ×3 (08:34→17:08)
[2024-11-10] MEDS: levETIRAcetam 500 MG TAB 1000 MG PO ×2 (08:35→19:59)
[2024-11-10] MEDS: Normal Saline Flush 10 ML SYR IVP ×4 (08:35→20:00)
--- NOTE | 2024-11-10 10:06 | PDOC.CMPRO ---
Date of service: 11/10/24 Time of Service: 10:06 Care Management Progress Note Progress Note Text Progress Note Text: Erika was sitting in her chair when CM arrived. She stated that she is feeling better and that her family had just stepped out. Erika states that she is excited to move with her sisters, but is nervous regarding walking during the transport. Erika said she will use an airport WC, to get her travel needs met. CM explained she can use a hospital WC to get to the door, Erika was appreciative of this plan. CM will continue to follow. Discharge Potential Discharge Needs: PCP F/U Appt Anticipated Barriers to Discharge: Medical Status Patient/Family Education Needs: Review discharge instructions, discuss Ask Me Three Transportation: Private vehicle (Family) Plan: Anticipate Erika will be discharged to the [facility], [place] with family prior to a home in [place], [place] with her sisters, when medically ready. Magan is coordinating airline arrangements and hoping to have her there by . Yosef is working to establish care with a new medical team in [place]. CM referred him to medical records and educated on the portal, he is aware he will need to obtain a release of records and consent form for a new PCP when found. It is recommended that she continue per her plan of care and transport with family. CM will follow and continue to assess for discharge needs Social Determinants of Health Screening Social Determinants of health last assessed in clinic: 11/10/24 Will the Patient Participate in the Screening?: Yes Do you worry about having a steady place to live?: no Problems where you live: no known problems In the past 12 months, have you had to go without electric, gas, oil or water in your home?: no 1. Within the past 12 months, we worried whether our food would run out before we got money to buy more.: Never true 2. Within the past 12 months, the food we bought just didn't last and we didn't have money to get more.: Never true Has lack of transportation kept you from medical appointments or from doing things needed for daily living?: no Has anyone in your life made you feel unsafe or unsupported?: no How hard is it for you to pay for the very basics like food, housing, medical care, and heating? Would you say it is:: Not hard at all Do you want help finding or keeping work or a job?: I do not need or want help If for any reason you need help with day-to-day activities such as bathing, preparing meals, shopping, managing finances, etc., do you get the help you need?: I don?t need any help How often do you feel lonely or isolated from those around you?: Never Do you speak a language other than Cuban at home?: No Does the patient want assistance with any of the above?: No
--- NOTE | 2024-11-10 10:20 | PT.INTREAT ---
PT Notes Visit Reasons: BRITTA, hyperkalemia, UTI Physical Therapy Inpatient Treatment Note Date: 11/10/2024 Precautions: Fall. Standard. Per Dr. Leary as of 10/17/2024: WBAT on the R LE with fracture boot/CAM boot on R and post-op shoe on the L foot when OOB. Subjective: Was so sleepy in the morning but was able to complete walking activity slowly. No report of pain in either foot. Objective: General Observation: Resting on chair. Alena Anh was present during morning session and was glad to help with wheelchair follow. Sister tori present in room for the afternoon session Mental Status: Oriented only as to person. Remains disoriented as to date, time, and place. Pain: None reportted Vital Signs: Closely monitored by nursing staff Bed Mobility/Transfers: Minimal cueing provided for use of B hands as needed for support, movement sequence, AD management, and posture to reduce fall risk and minimize pain report Sit to stand with contact guard assist assist using FWW Stand to sit with contact guard assist assist using FWW Bed to reclining chair contact guard assist assist using FWW Reclining chair to bed contact guard assist assist using FWW Gait: Tolerated short distance ambulation of about 150 feet + 100 feet using FWW with step-to gait pattern using fracture boot on R and post op shoe on the L side with no report of pain. moderate verbal cueing to widen base a little bit to avoid hitting front edge of post op shoe agabist back side pf fracture boot with each advancement of L foot. No SOB. 1 seated rest with vital signs BP 107/62 mmHg, SaO2 91% on RA, and HR 61 bpm. Balance: Static Sitting: Normal Dynamic Sitting: Normal Static Standing: Fair Dynamic Standing: Fair THERA EX: In the afternoon, completed standing lvel exercises with minimal cueing for correct execution and safety: Bilateral partial knee bends x 10 Back kicks x 10 Side kicks x 10 Chair push ups x 10 Assessment: Safely guided patient through today's activities for correct techniques, movement execution, and overall safety. She will continue to require HH PT and close supervision due to impaired cognitive status at home. Sister Tori said that patient will be living with their other sister in [place] and patient will be cared for by patient's sons and her sisters there. Patient is in agreement of going to [place] so she can be closely watched by the whole family as she recovers fully. Patient remaisn to need PT to follow up on status of weight bearing related to er posterior talus fracture on the R. Plan of Care/Treatment Plan: 1-2x/day, 7 days/week x 1 week. Plan of care has been reviewed with the DRUM CARRIER providing the service under Physical Therapy direction. Initiate Physical Therapy intervention for pain management as needed, strengthening, bed mobility, transfers, gait, stairs, balance training, and use of assistive device. DISCHARGE RECOMMENDATIONS: [] Home with no services [] [X] Home with services. Patient will benefit from home health PT services in order to progress mobility level using least restrictive assistive ambulatory device, assess home safety, identify additional equipment needs, and establish a functional maintenance program that will increase ability of patient to remain at home. [] Home with outpatient PT [] [] SNF for continued rehabilitation [] [] Skilled Nursing Care [] [] SNF versus LTC based on ability to participate and progress [] TREATMENT CODE/TIME: Session 1-- 50806 x 33 minutes for 2 units (10:20-10:53). Session 2--93456 x 13 minutes for 1 unit, 52317 x 15 minutes for 2 units (15:38-16:06).
[2024-11-10] MEDS: cefTRIAXone 1 GM/50 ML BAG IVPB (11:00)
--- NOTE | 2024-11-10 11:52 | PHA.REVIEW2 ---
Pharmacy Admission Review Admission Clinical Review Admission Pharmacy Review: Discharge planning issues (Acute) Left lower lobe pneumonia (Acute) Hyperkalemia (Acute) Acute UTI (Acute) Acute dehydration (Acute) Acute kidney injury (Acute) Rash (Acute) Urinary tract infection (Acute) Oxdbm-oj-qjgzdnx kidney injury (Acute) Fracture of posterior process of right talus (Acute) Subdural hematoma (Acute) Meningioma (Acute) No Known Allergies Allergy (Unverified 11/08/24 09:08) Resuscitation Status Full Code Height 5 ft 8 in Weight 51.982 kg Pharmacy Admission Review Renal Dosing Renal Dosing: BUN 56 mg/dL (7-18) H 11/10/24 06:10 Creatinine 2.1 mg/dL (0.55-1.02) H 11/10/24 06:10 Medications needing adjustments: Reviewed List of meds needing interventions: CEFPODOXIME-ADJUSTED TO Q24H FOR CRCL=17 Anticoagulation Anticoagulation: Hgb 11.4 g/dL (11.2-15.7) 11/10/24 06:10 Hct 35.8 % (36.0-46.0) L 11/10/24 06:10 Plt Count 450 10^3/uL (130-400) H 11/10/24 06:10 INR 1.1 (0.9-1.1) 11/08/24 08:55 Creatinine 2.1 mg/dL (0.55-1.02) H 11/10/24 06:10 DVT Prophylaxis: Reviewed Medications: Enoxaparin (RENALLY ADJUSTED) Opiate Usage Evaluate Pain Scale/Pains Meds: N/A Relevant Labs Relevant Labs: Sodium 147 mmol/L (136-145) H 11/10/24 06:10 Potassium 4.6 mmol/L (3.5-5.1) 11/10/24 06:10 Chloride 112 mmol/L (98-107) H 11/10/24 06:10 Magnesium 2.6 mg/dL (1.8-2.4) H 11/08/24 08:55 Electrolytes, C-Reactive P, ESR: Reviewed DM Control DM Control: Reviewed Insulin Dosing, Diabetic Medication: ON INSULIN SLIDING SCALE COVERAGE Cardiac Review Cardiac Review: Troponin I 7 ng/L (<or=51) 11/08/24 12:29 BP, HR, EF%: Reviewed QTc Review QTc: Reviewed List meds needing interventions: [id number] IV to PO Switch IV Medications: Reviewed (ANTIBIOTICS SWITCHED TO PO) Home Meds Home Med List reviewed: Reviewed Relevent Home Meds Not ordered & why?: LOSARTAN, NORVASC, METFORMIN ALL HELD IN SETTING OF BRITTA Current Meds Current Medication Order Review: Reviewed Pharmacy Antibiotic Review Pharmacy Antibiotic Activity: IV to PO (ON CEFTRIAXONE/DOXYCYCLINE FOR UTI & PNA-SWITCHED TO PO 11/10)
--- NOTE | 2024-11-10 12:40 | W.PM.PROGNOT ---
Date of Service Date of service: 11/10/24 Time of Service: 12:40 Assessment and Plan Assessment and plan (1) Uuprx-wq-befrgha kidney injury: Status: Acute Assessment and plan: Creatinine improved to 2.1 today Monitor intake and output closely. Duarte catheter discontinued Avoid nephrotoxic drugs, metformin and losartan remain on hold Renally dose meds as needed Follow labs closely (2) Hyperkalemia: Status: Acute Assessment and plan: 4.6 today Follow labs (3) Urinary tract infection: Status: Acute Assessment and plan: Changed to IV cefpodoxime (4) Rash: Status: Acute (5) Left lower lobe pneumonia: Status: Acute Assessment and plan: Left lower lobe pneumonia found on chest x-ray. changed to cefpodoxime and doxycycline oral in prepartation for discharge tomorrow No oxygen requirements no cough or fever (6) Subdural hematoma: Status: Acute Assessment and plan: CT on admission: Small chronic right temporo-occipital subdural hematoma, diminished in density since 10/14/2024. No acute intracranial hemorrhage. (7) Hypertension: Status: Chronic Assessment and plan: Continue to hold ARB in setting of BRITTA (8) Insulin dependent diabetes mellitus: Status: Chronic Assessment and plan: diabetic diet sliding scale coverage ac/hs metformin on hold in setting of BRITTA Hemoglobin A1c 7.5 (9) Meningioma: Status: Acute Assessment and plan: - previous MRI confirms presence of meningioma -outpatient [facility] neurosurgery appointment planned (10) Seizure: Status: Resolved Assessment and plan: no new seizure activity -continue1 g Keppra twice daily as recommended by [facility] neurosurgery awaiting outpatient neurology appointment (11) Fracture of posterior process of right talus: Status: Acute Assessment and plan: prior CT showed small right poterior talus fracture and extensive chondrocalcinosis -was with Ortho; non-operative, cam walking boot for comfort (12) Discharge planning issues: Status: Acute Assessment and plan: Plan is to discharge home with family Started oral abx; dc'd IV abx Case management following for discharge planning Physical therapy consultation placed Discussed with Dr. Fuentes Subjective Subjective Patient reports: no new complaints, feels better, tolerating liquids well, tolerating a regular diet, voiding w/o difficulty (foely catheter removed. ) and afebrile; denies diarrhea or vomiting Exam Const General: cooperative, comfortable and no acute distress Nutritional Appearance: average body habitus Orientation: alert, awake and oriented to person [facility] Head: normal to inspection, normocephalic and atraumatic Mouth: moist mucous membranes Eyes General: appearance normal, both eyes and all related structures Sclera: normal sclerae Chest Chest: normal inspection of the chest Resp Auscultation: clear to auscultation bilaterally and diminished lung sounds bilaterally in the lower lung maria Cardio Rate: regular rate Rhythm: regular rhythm GI Inspection: normal to inspection Neuro General: patient alert, patient awake and tone normal Extrem General: normal to inspection, full ROM and no edema Objective Last Vital Signs Temp 37.2 C 11/10/24 07:30 Pulse 88 11/10/24 07:30 Resp 18 11/10/24 07:30 BP 125/63 11/10/24 07:30 Pulse Ox 97 11/10/24 07:30 Laboratory Results - last 24 hr 11/09/24 11/09/24 11/10/24 11:51 16:10 06:10 WBC 8.83 RBC 3.89 L Hgb 11.4 Hct 35.8 L MCV 92 MCH 29.3 MCHC 31.8 L RDW 14.4 Plt Count 450 H MPV 9.4 Immature Gran % 0.7 Neutrophils % 79.0 Lymphocytes % 8.4 Monocytes % 3.7 Eosinophils % 7.4 Basophils % 0.8 Nucleated RBC % 0.0 Absolute Neutrophils 6.98 H Absolute Lymphocytes 0.74 L Absolute Monocytes 0.33 Absolute Eosinophils 0.65 Absolute Basophils 0.07 Sodium 147 H Potassium 4.6 Chloride 112 H Carbon Dioxide 23.2 Anion Gap 11.8 H BUN 56 H Creatinine 2.1 H Est GFR (CKD-EPI 2020) 23.23 Glucose 156 H Hemoglobin A1c 7.5 H Calcium 9.5 Add-On Test Request DONE Time Spent with Patient Time Spent with Patient: 25-34 minutes Time was spent: preparing to see the patient(eg.review tests), ordering medications,tests, procedures, referring, communicating with other health personal carer, indepentently interpreting results, counseling the patient and care coordination
[2024-11-10] MEDS: diphenhydrAMINE 25 MG CAP PO (16:29)
[2024-11-10 19:15] VITALS: BP 120/60; PULSE 95; RESP 20; TEMP 36.8; O2SAT 96
[2024-11-10] MEDS: Atorvastatin 20 MG TAB PO (19:59)
[2024-11-10] MEDS: Doxycycline Hyclate 100 MG CAP PO (19:59)
[2024-11-10] MEDS: Mirtazapine 15 MG TAB 7.5 MG PO (19:59)
[2024-11-10] MEDS: Enoxaparin 30 MG/0.3 ML SYR SC (21:10)
[2024-11-11] MEDS: Levothyroxine 75 MCG TAB PO (05:37)
[2024-11-11 06:38] LABS: Abs Immature Grans 0.07 10^3/uL (0.0-0.06); Absolute Basophil Count 0.06 10^3/uL (0.0-0.2); Absolute Eosinophil Count 0.91 10^3/uL (0.0-0.7); Absolute Lymphocyte Count 0.87 10^3/uL (1.2-3.4); Absolute Monocyte Count 0.29 10^3/uL (0.1-0.8); Absolute Neutrophil Count 5.38 10^3/uL (1.2-6.7); Basophils % 0.8 %; HCT 37.1 % (36.0-46.0); HGB 11.6 g/dL (11.2-15.7); Immature Grans % 0.9 %; Lymphocytes % 11.5 %; MCH 28.7 pg (27.0-33.0); MCHC 31.3 % (32.0-36.0); MCV 92 fL (80-95); MPV 9.2 fL (8.0-11.0); Monocytes % 3.8 %; Platelet Count 425 10^3/uL (130-400); RBC 4.04 10^6/uL (3.93-5.22); RDW 14.5 % (11.7-14.6); RDW-SD 48.3 fL; WBC 7.58 10^3/uL (4.4-10.8)
[2024-11-11 07:00] LABS: Anion Gap 10.6 mmol/L (3-11); BUN 44 mg/dL (7-18); CO2 24.4 mmol/L (21.0-32.0); CREATININE 1.7 mg/dL (0.55-1.02); Calcium 9.6 mg/dL (8.5-10.1); Chloride 109 mmol/L (98-107); Estimated GFR 29.94 (mL/min/1.73m2); Glucose 147 mg/dL (74-106); Magnesium 1.5 mg/dL (1.8-2.4); Potassium 4.3 mmol/L (3.5-5.1); Sodium 144 mmol/L (136-145)
[2024-11-11 08:10] VITALS: BP 130/67; PULSE 87; RESP 18; TEMP 36.5; O2SAT 99
[2024-11-11] MEDS: Doxycycline Hyclate 100 MG CAP PO (08:26)
[2024-11-11] MEDS: Cefpodoxime 200 MG TAB PO (08:27)
[2024-11-11] MEDS: levETIRAcetam 500 MG TAB 1000 MG PO (08:27)
[2024-11-11] MEDS: Normal Saline Flush 10 ML SYR IVP (08:27)
--- NOTE | 2024-11-11 08:39 | DM INPTCON_ITS ---
Date of service: 11/11/24 Time of Service: 08:39 Diabetes Inpatient Consult Reason for Visit: Received consult request for diabetes mgt/education DESCRIPTION/ASSESSMENT: Pt known to me from admission earlier this month. She was readmitted after becoming more lethargic and increase in confusion. Being treated for UTI, Ctzqe-ql-yeprect kidney injury, hyperkalemia, rash, LLL PNA. Hx of HTN, DMII. [facility]. Glucose managed with metformin at home - currently on hold. A1C on 11/09 was 7.5%. Mag lab low today at 1.5. GFR at 30 today. Fating glucose at 147 and 132 at breakfast. Glucose readings have been under 180 fasting and preprandial a majority of her current admission (did get a dose of steroids 11/08 which created a transient spike). Pt with a hx of vitamin D deficiency - has supplement on home med list. Mirtazapine ordered 7.5mg HS. Visited with Erika and family multiple times this admission, checking in on menus and trying to offer selections she might take well. Her current BMI is 17.4 however this is computed with a height of 68 - a stated height, when hx shows 62 and is more a realistic height - this correlates to BMI of 20.8 (low normal). Her weight history demonstrates ~5kg weight loss since discharge earlier this month on 10/14. Per weight history, UBW baseline has consistently been around 57kg over the last 5 years. She is currently 52kg on standing scale documented yesterday. She has experienced ~9% loss in body weight in < 1month. Albumin lab low 2.7 on 11/08and total protein labl wnl on same date. Kitchen staff offers protein/kcal ONS - seems to take small amounts of house- made whey protein smoothies. She doesn't care for much on the menu. Declined Nutrition focused physical exam, however visual observation of moderate temporal scooping. Nutrition Dx: moderate malnutrition E44.0 related to inadequate oral intake in the setting of uodsf-cl-bvkhluz disease or injury (BRITTA) as evidenced by pt meeting <75% of EER for >7 days (few bites at meals per interview and declining interest in eating) with resulting 9% loss of body weight over the last 4 weeks and increased need for assistance with ADL's. Estimated energy needs: 1124kcals (REEx1.2AF) - suggest goal of at least 1300 kcals for weight recovery. 62-77g protein (1.2-1.5g/kg). and 1124mL fluid INTERVENTION: Recommend: Vitamin D lab/continued supplementation if necessary. Replace magnesium. Continue sliding scale glucose corrections at meals. Kitchen will continue to offer higher kcal/protein options from the menu and a variety of ONS choices to support her intake. Would consider ordering liquid protein concentrate TID, however doubtful patient will take this. Consider prealbumin lab to better assess protein status, along with CRP to better interpret protein markers accurately. PLAN: will monitor intake, weight, nutrition-related labs. Time Spent in Nutritional Counseling and Treatment: 15 min
[2024-11-11] MEDS: Magnesium Chloride 64 MG TABCR PO (09:25)
--- NOTE | 2024-11-11 09:48 | PDOC.CMPRO ---
Date of service: 11/11/24 Time of Service: 09:48 Care Management Progress Note Discharge Potential Discharge Needs: PCP F/U Appt Anticipated Barriers to Discharge: None Identified Patient/Family Education Needs: Review discharge instructions, discuss Ask Me Three Transportation: Private vehicle Plan: Anticipate Jami Cheek will be discharged home when medically cleared. She was admitted from [facility] however her family does not wish for her to return. Erika will follow up with her community providers and plan of care and transport via private vehicle with her son. There is a tentative plan for Erika to move to [place] to live with her sisters after discharge. CM will follow and continue to assess for discharge needs. Social Determinants of Health Screening Social Determinants of health last assessed in clinic: 11/10/24 Will the Patient Participate in the Screening?: Yes Do you worry about having a steady place to live?: no Problems where you live: no known problems In the past 12 months, have you had to go without electric, gas, oil or water in your home?: no Has lack of transportation kept you from medical appointments or from doing things needed for daily living?: no Has anyone in your life made you feel unsafe or unsupported?: no How hard is it for you to pay for the very basics like food, housing, medical care, and heating? Would you say it is:: Not hard at all Do you want help finding or keeping work or a job?: I do not need or want help If for any reason you need help with day-to-day activities such as bathing, preparing meals, shopping, managing finances, etc., do you get the help you need?: I don?t need any help How often do you feel lonely or isolated from those around you?: Never Do you speak a language other than Nigerian at home?: No Does the patient want assistance with any of the above?: No
--- NOTE | 2024-11-11 10:08 | PT.INTREAT ---
PT Notes Visit Reasons: BRITTA, hyperkalemia, UTI Physical Therapy Inpatient Treatment Note Date: 11/11/2024 Precautions: Fall. Standard. CAM boot for comfort during ambulation activity. Subjective: Agreeable to today's session. Son Arben present throughout activity. Complained of discomfort on front of leg and ankle during walking that subsided with rest and removal of the boot. Son said that patient will have HH PT in [place] to contiue strengthening and mobility training at her sister's house. Objective: General Observation: Resting on chair. Son Arben was present and was okay to do wheelchair follow during ambulation activity. Mental Status: Oriented only as to person. Remains disoriented as to date, time, and place. Pain:As above Vital Signs: Closely monitored by nursing staff Bed Mobility/Transfers: Minimal cueing provided for use of B hands as needed for support, movement sequence, AD management, and posture to reduce fall risk and minimize pain report Sit to stand with contact guard assist assist using FWW Stand to sit with stand by assist assist using FWW Bed to reclining chair stand by assist assist using FWW Reclining chair to bed stand by assist assist using FWW Gait: Tolerated short distance ambulation of about 150 feet + 150 feet using FWW with step-to gait pattern using fracture boot on R and post op shoe on the L side with report ofmild discomfort in front of R leg and ankle. Moderate verbal cueing to widen base a little bit to avoid hitting front edge of post op shoe agabist back side pf fracture boot with each advancement of L foot. No SOB. 1 seated rest with vital signs. Balance: Static Sitting: Normal Dynamic Sitting: Normal Static Standing: Fair Dynamic Standing: Fair THERA EX: Chair push ups x 5 Assessment: Safely guided patient through today's activities for correct techniques, movement execution, and overall safety. She will continue to require HH PT and close supervision due to impaired cognitive status at home. Sister Tori said that patient will be living with their other sister in [place] and patient will be cared for by patient's sons and her sisters there. Patient is in agreement of going to [place] so she can be closely watched by the whole family as she recovers fully. Patient remaisn to need HH PT to follow up on status of weight bearing related to er posterior talus fracture on the R. Plan of Care/Treatment Plan: 1-2x/day, 7 days/week x 1 week. Plan of care has been reviewed with the CHEMICAL ETCH OPERATOR providing the service under Physical Therapy direction. Initiate Physical Therapy intervention for pain management as needed, strengthening, bed mobility, transfers, gait, stairs, balance training, and use of assistive device. DISCHARGE RECOMMENDATIONS: [] Home with no services [] [X] Home with services. Patient will benefit from home health PT services in order to progress mobility level using least restrictive assistive ambulatory device, assess home safety, identify additional equipment needs, and establish a functional maintenance program that will increase ability of patient to remain at home. [] Home with outpatient PT [] [] SNF for continued rehabilitation [] [] Retirement Care [] [] SNF versus LTC based on ability to participate and progress [] TREATMENT CODE/TIME: 25833 x 46 minutes for 3 units (10:08-10:54).
--- NOTE | 2024-11-11 11:44 | DSE_ITS ---
Date of service: 11/11/24 Time of Service: 11:44 DS: Diagnosis Discharge Diagnosis (1) [id number] kidney injury: Status: Acute (2) Hyperkalemia: Status: Acute (3) Urinary tract infection: Status: Acute (4) Rash: Status: Acute (5) Left lower lobe pneumonia: Status: Acute (6) Subdural hematoma: Status: Acute (7) Hypertension: Status: Chronic (8) Insulin dependent diabetes mellitus: Status: Chronic (9) Meningioma: Status: Acute (10) Seizure: Status: Resolved (11) Fracture of posterior process of right talus: Status: Acute (12) Discharge planning issues: Status: Acute Discharge Plan Disposition Patient Disposition: Home Condition: Fair Discharge Details Reason For Visit: BRITTA, hyperkalemia, UTI Admit Date/Time: 11/08/24 11:38 Admit Provider: Mathew Fuentes Attending Provider: Mathew Fuentes Primary Care Provider: Smith Judd Hospital Course Hospital Course: Discharge Summary Patient Information: * Age/Gender: 83-year-old female * Admitting Diagnosis: * Acute Kidney Injury (BRITTA) * Hyperkalemia * Urinary Tract Infection (UTI) * Left Lower Lobe Pneumonia * Maculopapular Rash * Acute Dehydration * Subdural Hematoma (Chronic) * Seizure History (Resolved) Reason for Admission: The patient presented to the emergency department with a 3-day history of decreased oral intake, increasing confusion, and hypotension. She also developed a new maculopapular rash. The patient, an 83-year-old female with complex medical history, was admitted for evaluation and management of worsening confusion, hypotension, and poor oral intake. Laboratory results pointed to acute kidney injury, hyperkalemia, and urinary tract infection. The patient also presented with a rash likely due to drug-induced causes, and a chest x-ray confirmed left lower lobe pneumonia. With appropriate interventions, including hydration, antibiotics, and monitoring, she was stabilized and will require close follow-up for her chronic conditions and BRITTA. Hospital Course: The patient?s clinical course was complicated by: * Acute Kidney Injury with an elevated creatinine (4.1) and potassium (6.4), which improved with IV hydration. * Hyperkalemia, which was managed with hydration and close monitoring of electrolytes. * Urinary Tract Infection treated with Ceftriaxone while awaiting culture results. * Left Lower Lobe Pneumonia, diagnosed via chest x-ray and treated with antibiotics. * Maculopapular Rash, likely drug-induced, treated with steroids, Benadryl, and famotidine. * Chronic Subdural Hematoma stable on imaging, with no acute changes noted. * Seizure History, with no new seizures, and continued treatment with Keppra as per outpatient neurology recommendations. The patient's blood pressure improved with IV fluid resuscitation. Electrolytes today, 11/11/24 Sodium 144, Potassium 4.3, Magnesium 1.5, glucose 147 Medications on Discharge: * Keppra for seizure management * Benadryl and steroids for rash * Take doxycycline and cefpodoxime twice a day for 5 days; start a probiotic Follow-Up Appointments recommended: * Neurology for seizure management and follow-up of meningioma. * Nephrology for BRITTA and chronic kidney disease follow-up. * Orthopedics for previous right talus fracture management. Instructions: * Monitor for any signs of worsening confusion, decreased urine output. * Continue prescribed medications and follow up as recommended. * Start a magnesium supplement. * Contact the healthcare provider if symptoms of infection or new medical concerns arise. Home Meds and New Rx's Prescriptions: New doxycycline hyclate 100 mg Capsule 100 mg PO BID Qty: 10 0RF cefpodoxime 200 mg Tablet 200 mg PO DAILY Qty: 10 0RF No Action metformin 500 mg tablet 500 mg PO BID levothyroxine 100 mcg tablet 75 mcg PO DAILY allopurinol 200 mg tablet 200 mg PO DAILY dapagliflozin propanediol [Farxiga] 5 mg tablet 5 mg PO DAILY magnesium 200 mg tablet 400 mg PO DAILY levetiracetam 500 mg Tablet 1,000 mg PO BID Qty: 90 0RF atorvastatin 20 mg tablet 20 mg PO DAILY amlodipine 10 mg tablet 10 mg PO DAILY Patient Comments: pt unsure if she still takes losartan 100 mg tablet 100 mg PO DAILY coenzyme Q10 [CoQ-10] 100 mg Capsule 200 mg PO DAILY zinc 50 mg Capsule 50 mg PO DAILY cholecalciferol (vitamin D3) [Vitamin D3] 125 mcg (5,000 unit) Tablet 125 mcg PO DAILY mirtazapine 7.5 mg tablet 7.5 mg PO QHS Discharge Instructions Instructions: Community-Acquired Pneumonia, Adult (DC), Urinary tract infection - Discharge instructions Additional Instructions: Medications on Discharge: * Keppra for seizure management * Benadryl and steroids for rash * Take doxycycline and cefpodoxime twice a day for 5 days; start a probiotic * Start a magnesium supplement Follow-Up Appointments recommended: * Neurology for seizure management and follow-up of meningioma. * Nephrology for chronic kidney disease follow-up. * Orthopedics for previous right talus fracture management. Instructions: * Monitor for any signs of worsening confusion, decreased urine output. * Continue prescribed medications and follow up as recommended. . * Contact the healthcare provider if symptoms of infection or new medical concerns arise. Stand Alone Forms: Nursing Discharge Form Referrals: [facility] [Provider Group] (I called and left a voicemail to have them call you to make a follow up appointment. ) [facility] [Provider Group] (I called and left a voicemail to have them give you a call to set up a follow up appointment.) Smith Judd [Primary Care Provider] - (PCP office will give you a call to make a follow up appointment for within 1 to 2 weeks.) Activity:: Activity as Tolerated Equipment/Supplies:: No Equipment Needed Diet:: As Tolerated Discharge Orders Discharge Orders: Discharge Order (Routine); Ordered 11/11/24 Ordered By: Daisha Patel Discharge Data Discharge Date/Time-TO BE ENTERED AT DEPARTURE: 11/11/24 13:02 DS: Summary Time Spent with Patient providing and/or coordinating discharge services: Less than 30 minutes Status at Discharge Functional status at discharge: uses cane/walker Overall status at discharge: patient is progressing back to baseline Mental Status: mental status grossly normal Speech and Movement: speech and movement normal Mood: congruent mood Affect: normal affect Quality:SDOH Health Related Social Needs: Health related social needs housing instability, house d, with risk of homelessness (Z59.811) Exam Const General: cooperative, comfortable and no acute distress Nutritional Appearance: average body habitus Orientation: alert, awake and oriented to person HENFL Head: normal to inspection, normocephalic and atraumatic Mouth: moist mucous membranes Eyes General: appearance normal, both eyes and all related structures Sclera: normal sclerae Chest Chest: normal inspection of the chest Resp Auscultation: clear to auscultation bilaterally and diminished lung sounds bilaterally in the lower lung maria Cardio Rate: regular rate Rhythm: regular rhythm GI Inspection: normal to inspection Neuro General: patient alert, patient awake and tone normal Extrem General: normal to inspection, full ROM and no edema Psych Mental Status: mental status grossly normal Speech and Movement: speech and movement normal Mood: congruent mood Affect: normal affect DS: Data Vitals/I&O Vitals and I&O: Vital Signs Temperature 36.5 C 11/11/24 08:10 Temperature Source Temporal Artery Scan 11/11/24 08:10 Pulse 87 11/11/24 08:10 Pulse 82 11/08/24 13:50 Respiratory Rate 18 11/11/24 08:10 Blood Pressure 130/67 11/11/24 08:10 Blood Pressure Mean 88 11/11/24 08:10 Blood Pressure Position Supine 11/08/24 09:02 Pulse Oximetry 99 11/11/24 08:10 Oxygen Delivery Method Room Air 11/11/24 08:10 Oxygen Flow Rate 0 11/11/24 08:10 Pain Level 0 11/11/24 10:00 Comment RN notified of bp 11/08/24 15:07 Intake & Output 11/10/24 11/10/24 11/11/24 11:59 23:59 11:59 Intake Total 150 / 200 50 / 200 100 / 100 Output Total 1610 / 1960 350 / 1960 300 / 300 Balance -1460 / -1760 -300 / -1760 -200 / -200 Weight 51.982 kg Intake: IV 150 / 200 50 / 200 100 / 100 Output: Urine 1610 / 1960 350 / 1960 300 / 300 Other: Urine Color Yellow Yellow Yellow Urine Appearance Clear Clear Clear Urine Odor Normal Normal Data Completed and Pending Labs on day of discharge: Labs from last 24 hours 11/11/24 06:00 WBC 7.58 RBC 4.04 Hgb 11.6 Hct 37.1 MCV 92 MCH 28.7 MCHC 31.3 L RDW 14.5 Plt Count 425 H MPV 9.2 Immature Gran % 0.9 Neutrophils % 71.0 Lymphocytes % 11.5 Monocytes % 3.8 Eosinophils % 12.0 Basophils % 0.8 Nucleated RBC % 0.0 Absolute Neutrophils 5.38 Absolute Lymphocytes 0.87 L Absolute Monocytes 0.29 Absolute Eosinophils 0.91 H Absolute Basophils 0.06 Sodium 144 Potassium 4.3 Chloride 109 H Carbon Dioxide 24.4 Anion Gap 10.6 BUN 44 H Creatinine 1.7 H Est GFR (CKD-EPI 2020) 29.94 Glucose 147 H Calcium 9.6 Magnesium 1.5 L Preliminary micro results at discharge 11/08/24 08:54 Blood Blood Culture - Preliminary NO GROWTH 48 HOURS 11/08/24 10:42 Blood Blood Culture - Preliminary NO GROWTH 48 HOURS PFSH All Active Problems (Updated 11/11/24 @ 11:45 by Daisha Patel NP) Discharge planning issues (Acute) Left lower lobe pneumonia (Acute) Hyperkalemia (Acute) Acute UTI (Acute) Acute dehydration (Acute) Acute kidney injury (Acute) Rash (Acute) Urinary tract infection (Acute) Llhkl-id-[id number] kidney injury (Acute) Fracture of posterior process of right talus (Acute) Subdural hematoma (Acute) Meningioma (Acute) Hypertension (Chronic) Serrated adenoma of colon (Acute) Tubular adenoma of colon (Acute) Hyperplastic colon polyp (Acute) Vitamin D deficiency (Acute) Chronic kidney disease (CKD) stage G1/A3, glomerular filtration rate (GFR) equal to or greater than 90 mL/min/1.73 square meter and albuminuria creatinine ratio greater than 300 mg/g (Acute) Heart murmur, systolic (Acute) Screening for colon cancer (Acute) Sleep apnea (Chronic) Insulin dependent diabetes mellitus (Chronic) Medical History DJD (degenerative joint disease) Hypothyroidism associated with surgical procedure Hypomagnesemia Prepatellar bursitis Nocturia Parotid cyst Tubulovillous adenoma of colon Pneumonia Back pain 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 Gonzalez 05/27/20 The left parotid cyst seems to be significantly smaller, and was previously aspirated for thin clear liquid. Hyperlipidemia Diabetes mellitus takes Lantus. 2012 HgbA1c 6.8. 2015 HgbA1c 6.5. No end organ damage. Hypothyroidism (acquired) s/p thyroidectomy for ? thryoid CA. On thyroid replacement. Pt's Parathyroid Hormone 03/2016 = 9 (12-77) Essential hypertension Elevated lipids Pain in left hip Surgical History Trigger finger, right index finger DOS: 10/07/18 Trigger Finger release trigger finger 2012 Total replacement of hip (~12/2013) L Total Hip Arthroplasty. Thyroid ? CA. No further Rx required. Nl Ca levels. Pt. reports thyroid was removed Open Carpal Tunnel release hammer toe and carpal tunnel in [place] Colonoscopy - MAC (~01/2022) Colonoscopy - IV Sedation 2011 Appendectomy 1994 History of Surgical Procedure a. Hammer toe procedure on her left foot. b. Appendectomy. c. Bilateral carpal tunnel releases, trigger releases, bilateral middle fingers. d. Colonoscopy. Family History Sister Personal history of malignant neoplasm ovarian CA. in 50's Social History Smoking/Tobacco Use Status: Never Smoking risk assessment performed?: Yes Alcohol Intake: current Alcohol Intake frequency: holidays/special occasions only Alcohol type: beer and wine Drug use: Never Substance use type: does not use Household members: children and other Details: D. lives with son and son in law. 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 [employer]: [employer] Do you feel safe at home: Yes Do you feel safe in your relationship?: Yes Female Reproductive History Menstrual Menopause type: natural History History 4 Para 3 Hx # Term Pregnancies 3 Multiple births Hx # Pregnancies Ectopic pregnancies AB induced Hx Number of Living Children 3 AB spontaneous Time Spent with Patient Time Spent with Patient: 45-69 minutes Time was spent: preparing to see the patient(eg.review tests), ordering medications,tests, procedures, referring, communicating with other health geriatric care manager, indepentently interpreting results, counseling the patient and care coordination
[2024-11-11] MEDS: Insulin Aspart 300 UNITS/3 ML PEN SC (12:09)
--- NOTE | 2024-11-11 13:20 | PDOC.CMDIS ---
Date of service: 11/11/24 Time of Service: 13:21 LACE Index Scoring Tool Questions: Length of Stay (in days): 3 Was the patient admitted via the E.D.?: Yes Comorbidities: Diabetes w/o Complication and Liver or Renal Disease E.D. 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 Her son Magan is coordinating airline arrangements and is hoping to have her travel on November 13. He is working to establish care for Erika with a new medical team in [place]. CM provided a letter at his request stating that she could benefit from the use of a wheelchair and possibly early boarding at the airport. One of her sons will transport her to a local hotel later today via private vehicle and remain with her until she leaves. Patient/Family Education Needs: Review discharge instructions, discuss Ask Me [facility] Health Related Social Needs: Health related social needs housing instability, housed, with risk of homelessness (Z59.811)
== END 2024-11-11 13:02 | disposition home or self-care (01) | DRG 682 ==
LOC: ER 11:51 → MS 14:47
PROVIDERS: Nurse Practitioner Acute Care; Admitting Provider Hospitalist; Emergency Provider Registered Nurse Emergency; PCP Student in an Organized Health Care Education/Training Program; Responsible Provider Nurse Practitioner Family; Visit Provider Hospitalist
DX: N17.9 Acute kidney failure, unspecified (principal); J18.9 Pneumonia, unspecified organism; N39.0 Urinary tract infection, site not specified; E87.5 Hyperkalemia; R21 Rash and other nonspecific skin eruption; I12.9 Hypertensive chronic kidney disease with stage 1 through stage 4 chronic kidney disease, or unspecified chronic kidney disease; E11.22 Type 2 diabetes mellitus with diabetic chronic kidney disease; Z79.84 Long term (current) use of oral hypoglycemic drugs; I95.9 Hypotension, unspecified; Z79.899 Other long term (current) drug therapy; S06.5XAD Traumatic subdural hemorrhage with loss of consciousness status unknown, subsequent encounter; W19.XXXD Unspecified fall, subsequent encounter; E55.9 Vitamin D deficiency, unspecified; N18.30 Chronic kidney disease, stage 3 unspecified; E89.0 Postprocedural hypothyroidism; E78.5 Hyperlipidemia, unspecified; Z85.850 Personal history of malignant neoplasm of thyroid; H90.3 Sensorineural hearing loss, bilateral; Z96.642 Presence of left artificial hip joint; Z79.4 Long term (current) use of insulin; S92.001D Unspecified fracture of right calcaneus, subsequent encounter for fracture with routine healing; R19.7 Diarrhea, unspecified; D32.0 Benign neoplasm of cerebral meninges
CPT/HCPCS: 00123; 36415; 51702; 80048; 80053; 83690; 87040; 87077; 87641; 93005; 96361; 96365; 96366; 96375; 97110; 97161; 97530; 99285; 70450; 71045; 81003; 81015; 83036; 83605; 83735; 84484; 85025; 85610; 85730; 87086; 87186; 93010; 99222; 99231; 99232; 99239; J0696; J1200; J1650; J1815; J2919